=== PATIENT | female | born 1955 | race Caucasian/White ===

== ENCOUNTER 2020-06-14 08:56 | Outpatient (RCR) | payer BC, SELFPAY ==
[2020-06-14] MEDS: COVID-19 VACC, MRNA(PFIZER)/PF 30 MCG/0.3 ML SYRINGE IM (16:22)
[2020-07-04] MEDS: COVID-19 VACC, MRNA(PFIZER)/PF 30 MCG/0.3 ML SYRINGE IM (16:18)
== END 2020-08-20 23:59 ==
LOC: IMMUN 08:56
PROVIDERS: PCP Family Medicine; Visit Provider Family Medicine
DX: Z23 Encounter for immunization (principal)
CPT/HCPCS: 0001A; 0002A; 91300

== ENCOUNTER 2022-07-30 09:01 | Emergency (ER) | payer MEDICARE, SELFPAY ==
[2022-07-30 09:01] VITALS: BP 177/100; PULSE 87; RESP 16; TEMP 36.6; O2SAT 96; BMI 37.7
--- NOTE | 2022-07-30 09:11 | EKG12_ITS ---
Test Reason : CP Blood Pressure : / mmHG Vent. Rate : 090 BPM Atrial Rate : 090 BPM P-R Int : 156 ms QRS Dur : 078 ms QT Int : 372 ms P-R-T Axes : 039 010 025 degrees QTc Int : 455 ms Normal sinus rhythm Normal ECG Confirmed by FABIANA CHILEL, AROLDO ([id number]), script editor STEVEN NORRIS ([id number]) on 07/31/2022 8:58:00 AM Referred By: [facility]PHYS Confirmed By:AROLDO JUNG MD
[2022-07-30 09:24] LABS: Absolute Lymphocyte Count 1.97 X10^3/uL (0.83-4.51); Basophil# 0.11 X10^3/uL; Basophil% 0.9 % (0-1); Eosinophil# 0.12 X10^3/uL; Hematocrit 50.8 % (37-47); Lymphocyte # 1.97 X10^3/ul (0.83-4.51); Lymphocyte % 16.7 % (19-41); Mean Corp Hgb Conc 33.5 g/dL (32-36); Mean Corpuscular Volume 89.6 fL (81-99); Monocyte# 1.55 X10^3/uL; Monocyte% 13.1 % (0-10); NRBC Flagged by Analyzer 0 % (0-5); Neutrophil # 7.99 X10^3/uL (2.7-7.7); Neutrophil % 67.8 % (47-70); POSITIVE DIFFERENTIAL YES; Platelet Count 272 K/mm3 (150-450); RBC Distribution Width CV 14.1 % (11.6-14.6); RBC Distribution Width SD 46.5 fl (35.1-43.9); Red Blood Count 5.67 M/mm3 (4.2-5.4); White Blood Count 11.8 K/mm3 (4.4-11.0)
[2022-07-30 09:26] LABS: Differential Indicated SCAN CRITERIA MET
[2022-07-30 09:42] LABS: Anion Gap 4 (5-15); BUN 13 mg/dL (7-18); BUN/Creat Ratio 14.9 RATIO (10-20); Calcium,Total 9.2 mg/dL (8.5-10.1); Chloride 107 mmol/L (98-107); Creatinine, Serum 0.87 mg/dL (0.55-1.02); EST Glomerular Filtration Rate 69 mL/min (>60); Est Glom Filt Rate - Afr Amer 84 mL/min (>60); Estimated Creatinine Clearance 60.35 ml/min; Glucose 139 mg/dL (74-106); Sodium Level 139 mmol/L (136-145); Troponin-I HS (w/2H Reflex) 6 pg/mL (3.0-54.0)
--- NOTE | 2022-07-30 09:55 | ED.VIS.CHEST ---
HPI History of Present Illness Chief Complaint: Chest Pain Informant: patient Onset/Context/Timing Onset: Month(s) Narrative Narrative: Patient has been having chest pain off and on since February, she states it is bilateral axilla radiating all the way across her sternum/chest, more constant since May. She had some white blood count elevations that would not come down so she was sent to hematology after having work-ups for the chest discomfort, they ordered a CTA of the chest which was done as an outpatient this morning, it was interpreted as a type a Wayne aortic dissection, and she was shuttled straight here to the ER. She states she is having the discomfort right now but it is mild. She is on no antihypertensives, she follows with her doctor regularly. She has had no syncopal or near syncopal episodes in the last couple months. [facility] Medical History Constipation Diabetes mellitus GERD (gastroesophageal reflux disease) Hemorrhoids HLD (hyperlipidemia) Muscular pain Nicotine dependence Osteoarthritis Osteoarthritis of right knee Plantar fasciitis of right foot Home Medications atorvastatin 10 mg tablet 10 mg PO DAILY 06/24/22 [History Last Taken Unknown] omeprazole 40 mg capsule,delayed release 40 mg PO DAILY 06/24/22 [History Last Taken Unknown] metformin 500 mg tablet 500 mg PO BID 07/21/22 [History Last Taken Unknown] Allergy/AdvReac Type Severity Reaction Status Date / Time No Known Allergies Allergy Verified 07/21/22 15:26 Family History Brother Bladder cancer Father Colon cancer Mother Heart disease Diabetes Surgical History History of tubal ligation S/P total knee arthroplasty Social History Smoking Status: Heavy Smoker (>10/day) alcohol intake: never substance use type: does not use ROS ROS ED Constitutional Constitutional ED: Denies chills or fever(s) Eyes Eyes: Denies change in vision or diplopia ENT ENT ED: Denies rhinorrhea or sore throat Cardiovascular Cardiovascular: Reports chest pain; Denies palpitations Respiratory/Chest Respiratory/Chest: Denies cough or dyspnea Gastrointestinal Gastrointestinal: Denies abdominal pain, diarrhea, nausea or vomiting Genitourinary Genitourinary ED: Denies dysuria or hematuria Musculoskeletal Musculoskeletal: Denies back pain or neck pain Integumentary Denies abscess or rash Neurologic Neurologic: Denies headache(s), paresthesias or weakness Psychiatric Psychiatric: Denies anxiety or suicidal thoughts EXAM Physical Exam Const Vital Signs: 07/30/22 09:01 07/30/22 09:11 07/30/22 09:14 Temperature 97.8 F Temperature Source Oral Pulse Rate 87 Respiratory Rate 16 Respiratory Effort Normal Blood Pressure 177/100 H Blood Pressure Mean 125 Pulse Ox 96 Oxygen Delivery Method Room Air Room Air 07/30/22 10:18 Temperature Temperature Source Pulse Rate 77 Respiratory Rate 16 Respiratory Effort Blood Pressure 141/82 H Blood Pressure Mean 101 Pulse Ox 99 Oxygen Delivery Method Positive well nourished and well developed General Appearance ED: well developed and NAD HEENT Reports moist mucous membranes normocephalic and atraumatic Eyes PERRL and EOMs intact bilaterally Neck full ROM and supple Resp normal respiratory effort and clear to auscultation bilaterally Cardio regular rate, regular rhythm and no murmurs GI non-tender and non-distended Auscultation: normoactive bowel sounds Palpation: soft Back/Spine no CVA tenderness General Back: other FROM Extremity normal to inspection General Extremety ED: Negative for edema, pulses abnormal or tenderness General Extremity: Negative for edema or pulses abnormal Neuro oriented x3, CN's II-XII intact bilaterally and no sensory deficits noted Sensorium / Orientation: awake and alert Motor Exam: strength 5/5 throughout Skin no rashes or lesions noted and no wounds MDM MDM MDM Narrative Medical decision making narrative: I reviewed the images. If this is a real aortic dissection it is subtle. I question whether this could be beam hardening artifact from the nearby pulmonary vasculature filled with dye. Patient is very hypertensive 177/100, so I am treating this with labetalol, discussed with family at length, they agree with transfer for further evaluation and possible definitive treatment, which if this is real, is surgical. She is clinically stable and the rest of her vital signs are normal. They prefer to go to [facility]. Discussed with their center and with Dr. Almonte. Lab Data Attestation: I reviewed the patient's lab results. Labs: Laboratory Results - last 24 hr 07/30/22 07/30/22 09:10 09:10 WBC 11.8 H RBC 5.67 H Hgb 17.0 H Hct 50.8 H MCV 89.6 MCH 30.0 MCHC 33.5 RDW Std Deviation 46.5 H RDW Coeff of Gisella 14.1 Plt Count 272 MPV 13.0 H Immature Gran % (Auto) 0.500 Neut % (Auto) 67.8 Lymph % (Auto) 16.7 L [place] % (Auto) 13.1 H Eos % (Auto) 1.0 Baso % (Auto) 0.9 Absolute Neuts (auto) 8.0 H Absolute Lymphs (auto) 1.97 Nucleated RBC % 0 Sodium 139 Potassium 4.0 Chloride 107 Carbon Dioxide 28.0 Anion Gap 4 L BUN 13 Creatinine 0.87 Estim Creat Clear Calc 60.35 Est GFR (MDRD) Af Amer 84 Est GFR (MDRD) Non-Af 69 BUN/Creatinine Ratio 14.9 Glucose 139 H Calcium 9.2 Troponin I High Sens 6 Rhythm Strip Rhythm Strip: Sinus Rhythm Rate: 90 Ectopy: None EKG Initial EKG: Attestation: I personally reviewed and interpreted this EKG as follows: Interpretation: Sinus Rhythm and No Acute Injury Pattern Comments: normal EKG Critical Care Time Critical Care Time: Yes Critical care time (excluding procedures): 30-74 minutes (33 min), Including time spent:, Discussing 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
--- NOTE | 2022-07-30 10:10 | RAD_ITS ---
STUDY: X-RAY CHEST REASON FOR EXAM: Female, 66 years old. Chest pain TECHNIQUE: Single AP portable view of the chest. COMPARISON: None. FINDINGS: EKG electrodes are seen. The lungs are clear and expanded. There is no demonstrated pleural abnormality. Normal size heart. Normal mediastinum and nancy. Normal visualized pulmonary arteries. Normal visualized aortic arch and descending thoracic aorta. There are degenerative changes of the visualized thoracic spine. Normal visualized ribs, clavicles, and shoulders. There is no demonstrated abnormality of the visualized soft tissue structures of the upper abdomen. RAD/Chest 1 View (Portable) IMPRESSION: Normal x-ray examination of the chest. Electronically Signed: Dayton Maldonado MD at 10:44 EDT ,
[2022-07-30 10:18] VITALS: BP 141/82; PULSE 77; RESP 16; O2SAT 99
--- NOTE | 2022-07-30 10:20 | ED.RN ---
hold labetolol per bp perameters
[2022-07-30] MEDS: Labetalol (Prefilled) 20 MG/4 ML IV (10:46)
[2022-07-30 10:54] VITALS: BP 142/84; PULSE 77; RESP 16; O2SAT 99
== END 2022-07-30 10:56 | disposition short-term general hospital (02) ==
PROVIDERS: Emergency Provider Emergency Medicine; PCP Registered Nurse; Visit Provider Emergency Medicine
DX: I71.00 Dissection of unspecified site of aorta (principal); E11.9 Type 2 diabetes mellitus without complications; E78.5 Hyperlipidemia, unspecified; F17.200 Nicotine dependence, unspecified, uncomplicated; K21.9 Gastro-esophageal reflux disease without esophagitis; Z79.899 Other long term (current) drug therapy; Z79.84 Long term (current) use of oral hypoglycemic drugs; M54.10 Radiculopathy, site unspecified
CPT/HCPCS: 71045; 71260; 80048; 84484; 85025; 93005; 96374; 99285; Q9967

== ENCOUNTER → 2022-07-30 | Outpatient (CLI) | payer MEDICARE, SELFPAY ==
--- NOTE | 2022-07-30 07:47 | CT_ITS ---
STUDY: CT CHEST WITH CONTRAST REASON FOR EXAM: Female, 66 years old. LEUKOCYTOSIS, THORACIC SPINE PAIN RADIATION DOSAGE (If Supplied By Facility): CTDIvol = ( 14.07 ) mGy, DLP = ( 676.82 ) mGycm TECHNIQUE: Transaxial imaging was performed following intravenous administration of IV 100mL Isovue-300. Multiplanar coronal and sagittal images were reformatted. Individualized dose optimization techniques were used for this CT. COMPARISON: No relevant priors. FINDINGS: CHEST The lungs are normal. There is no demonstrated pleural abnormality. Normal heart and pericardium. Normal mediastinum. Normal hilar regions. Normal unenhanced pulmonary arteries. 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 This corresponds to a [place] type A dissection. Normal osseous structures. There is no demonstrated abnormality of the visualized upper abdomen. 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 Electronically Signed: Dayton Maldonado MD at 8:43 EDT ,
== END | disposition home or self-care (01) ==
LOC: CT 07:47
PROVIDERS: PCP Registered Nurse; Referring Provider Internal Medicine Medical Oncology; Visit Provider Internal Medicine Medical Oncology
DX: M54.10 Radiculopathy, site unspecified (principal)
CPT/HCPCS: 71260; Q9967

== ENCOUNTER → 2022-08-24 | Outpatient (CLI) | payer MEDICARE, SELFPAY ==
--- NOTE | 2022-08-24 13:26 | MRI_ITS ---
EXAM: MR THORACIC SPINE WITHOUT AND WITH INTRAVENOUS CONTRAST CLINICAL INDICATION: LEUKOCYTOSIS; THORACIC SPINE PAIN TECHNIQUE: Multiplanar and multisequence MR images of the thoracic spine without and with intravenous contrast. Magnetic field strength 1.5 T. CONTRAST: 20 cc of Clariscan IV. COMPARISON: No relevant prior studies available. FINDINGS: VERTEBRAE: Unremarkable. No fracture. Normal vertebral bodies and posterior elements. Normal alignment. There is preservation of the normal thoracic kyphosis. No scoliosis. DISCS/SPINAL CANAL/NEURAL FORAMINA: Unremarkable. Normal disc height and morphology. Normal spinal canal and neuroforamina. SPINAL CORD: Unremarkable. Normal in signal and morphology. Normal conus medullaris. SOFT TISSUES: Unremarkable. MRI/Spine Thoracic W/WO Contrast IMPRESSION: Unremarkable MRI of the thoracic spine. Electronically Signed: Jude Rosario MD at 4:35 EDT ,
== END | disposition home or self-care (01) ==
LOC: MRI 13:13
PROVIDERS: PCP Registered Nurse; Referring Provider Internal Medicine Medical Oncology; Visit Provider Internal Medicine Medical Oncology
DX: M54.10 Radiculopathy, site unspecified (principal)
CPT/HCPCS: 72157; A9575

== ENCOUNTER → 2022-10-06 | Outpatient (CLI) | payer MEDICARE, SELFPAY ==
[2022-10-06 09:11] LABS: Erythrocyte Sedimentation Rate 37 mm/hr (0-30)
[2022-10-06 09:13] LABS: ALB/GLOB Ratio 0.9 RATIO (0.9-2.4); AST(SGOT) 126 U/L (15-37); Alanine Aminotransfer ALT/SGPT 295 U/L (13-56); Albumin, Serum 3.4 g/dL (3.2-5.0); Alkaline Phosphatase 547 U/L (45-117); Amylase 56 U/L (25-115); Anion Gap 6 (5-15); BUN 13 mg/dL (7-18); BUN/Creat Ratio 13.4 RATIO (10-20); CRP 7.76 mg/L (0.0-3.0); Calcium,Total 9.2 mg/dL (8.5-10.1); Chloride 112 mmol/L (98-107); Creatinine, Serum 0.97 mg/dL (0.55-1.02); EST Glomerular Filtration Rate 61 mL/min (>60); Est Glom Filt Rate - Afr Amer 74 mL/min (>60); Globulin 3.9 g/dL (2.2-4.2); Glucose 136 mg/dL (74-106); LDH 232 U/L (84-246); Lipase 86 U/L (13-75); Potassium 3.4 mmol/L (3.5-5.1); Protein, Total 7.3 g/dL (6.4-8.2); Sodium Level 140 mmol/L (136-145)
[2022-10-06 09:15] LABS: Absolute Lymphocyte Count 1.66 X10^3/uL (0.83-4.51); Absolute Neutrophil Count 7.5 X10^3/uL (2.0-7.7); Basophil% 0.9 % (0-1); Eosinophil# 0.21 X10^3/uL; Eosinophils% 1.9 % (0-5); Hematocrit 50.8 % (37-47); Hemoglobin 16.7 g/dL (12.0-15.0); Lymphocyte # 1.66 X10^3/ul (0.83-4.51); Lymphocyte % 14.8 % (19-41); Mean Corp Hgb Conc 32.9 g/dL (32-36); Mean Corpuscular Hgb 29.5 pg (27.0-32.0); Mean Corpuscular Volume 89.6 fL (81-99); Mean Platelet Vol. 14.2 fl (6.2-12.0); Monocyte# 1.73 X10^3/uL; Monocyte% 15.4 % (0-10); NRBC Flagged by Analyzer 0 % (0-5); Neutrophil # 7.45 X10^3/uL (2.7-7.7); Neutrophil % 66.4 % (47-70); POSITIVE DIFFERENTIAL YES; Platelet Count 207 K/mm3 (150-450); RBC Distribution Width CV 15.6 % (11.6-14.6); RBC Distribution Width SD 50.9 fl (35.1-43.9); Red Blood Count 5.67 M/mm3 (4.2-5.4); White Blood Count 11.2 K/mm3 (4.4-11.0)
[2022-10-06 09:17] LABS: Differential Indicated SCAN CRITERIA MET
[2022-10-06 09:38] LABS: Prothrombin Time (Protime)PT. 13.2 SECONDS (11.7-14.9)
[2022-10-07 13:13] LABS: Anti-Centromere B Ab <0.2 AI (0.0-0.9); Anti-Chromatin <0.2 AI (0.0-0.9); Anti-Jo <0.2 AI (0.0-0.9); Anti-Scleroderma-70 AB <0.2 AI (0.0-0.9); Anti-dsDNA Ab 3 IU/mL (0-9); RNP Ab 0.7 AI (0.0-0.9); SJOGREN'S Anti-SS-A test < 0.2 AI (0.0-0.9); SJOGREN'S Anti-SS-B test < 0.2 AI (0.0-0.9); Smith Ab <0.2 AI (0.0-0.9)
[2022-10-08 09:52] LABS: Pathologist Review Reviewed
[2022-10-09 13:08] LABS: Albumin 3.3 g/dL (2.9-4.4); Alpha-1-Globulins 0.4 g/dL (0.0-0.4); Alpha-2-Globulins 0.9 g/dL (0.4-1.0); Ceruloplasmin 33.5 mg/dL (19.0-39.0); Copper, Serum or Plasma 141 ug/dL (80-158); Cytoplasmic Ab (C-ANCA) <1:20 titer (Neg:<1:20); Endomysial Antibody IgA Negative (Negative); Gamma Globulin 0.9 g/dL (0.4-1.8); Immunoglobulin A 278 mg/dL (87-352); Immunoglobulin E 16 IU/mL (6-495); Immunoglobulin G 855 mg/dL (586-1602); Immunoglobulin M 42 mg/dL (26-217); PROEL- TOTAL PROTEIN 6.7 g/dL (6.0-8.5); Perinuclear Ab (P-ANCA) <1:20 titer (Neg:<1:20); t-Transglutaminase IgA <2 U/mL (0-3)
== END | disposition home or self-care (01) ==
PROVIDERS: PCP Registered Nurse; Referring Provider Internal Medicine Gastroenterology; Visit Provider Internal Medicine Gastroenterology
DX: D72.829 Elevated white blood cell count, unspecified (principal); R07.9 Chest pain, unspecified
CPT/HCPCS: 36415; 80053; 82150; 82390; 82525; 82784; 82785; 83516; 83615; 83690; 84165; 85025; 85610; 85652; 86140; 86225; 86235; 86255; 86256; 86334

== ENCOUNTER 2022-10-08 10:26 | Inpatient (IN) | payer MEDICARE, SELFPAY ==
[2022-10-08 10:27] VITALS: BP 129/77; PULSE 95; RESP 14; TEMP 36.7; O2SAT 100; BMI 35.3
[2022-10-08 11:22] LABS: Bacteria 0 SEEN /hpf (None Seen); Mucous, Urine 0 SEEN /hpf (<or=2+); Red Blood Cells-Urine 0 SEEN /hpf (0-5); White Blood Cells 0 SEEN /hpf (0-5)
[2022-10-08 11:25] LABS: Color, Urine Yellow (Yellow); Glucose, Dipstick Normal (Normal); Ketone-Dipstick Negative (Negative); Leukocyte Esterase-Dipstick Negative /ul (Negative); Nitrite-Dipstick Negative (Negative); Occult Blood-Urine 10 /ul (Negative); Protein-Dipstick 30 mg/dl (Negative); Specific Gravity, Urine 1.005 (1.002-1.030); Urine Bilirubin Dipstick 1 mg/dL (Negative); Urine Clarity Clear (Clear); Urine Urobilinogen Normal (Normal)
[2022-10-08 11:28] LABS: Absolute Lymphocyte Count 1.64 X10^3/uL (0.83-4.51); Basophil# 0.13 X10^3/uL; Basophil% 1.2 % (0-1); Eosinophil# 0.21 X10^3/uL; Eosinophils% 1.9 % (0-5); Hematocrit 48.5 % (37-47); Hemoglobin 16.2 g/dL (12.0-15.0); Lymphocyte # 1.64 X10^3/ul (0.83-4.51); Lymphocyte % 15.2 % (19-41); Mean Corp Hgb Conc 33.4 g/dL (32-36); Mean Corpuscular Hgb 29.7 pg (27.0-32.0); Mean Corpuscular Volume 88.8 fL (81-99); Mean Platelet Vol. 13.5 fl (6.2-12.0); Monocyte# 1.79 X10^3/uL; Monocyte% 16.5 % (0-10); NRBC Flagged by Analyzer 0 % (0-5); Neutrophil # 7.02 X10^3/uL (2.7-7.7); Neutrophil % 64.9 % (47-70); POSITIVE DIFFERENTIAL YES; Platelet Count 195 K/mm3 (150-450); RBC Distribution Width CV 16.2 % (11.6-14.6); RBC Distribution Width SD 52.8 fl (35.1-43.9); Red Blood Count 5.46 M/mm3 (4.2-5.4); White Blood Count 10.8 K/mm3 (4.4-11.0)
[2022-10-08 11:31] LABS: Differential Indicated SCAN CRITERIA MET
[2022-10-08 11:34] LABS: Prothrombin Time (Protime)PT. 12.9 SECONDS (11.7-14.9)
[2022-10-08 11:35] LABS: Squamous Epithelial Cells - UA 0-5 SEEN /hpf (5-10)
[2022-10-08 11:35] LABS: Partial Thromboplast Time 36.1 Seconds (24.1-36.2)
[2022-10-08 11:53] LABS: ALB/GLOB Ratio 0.8 RATIO (0.9-2.4); AST(SGOT) 116 U/L (15-37); Alanine Aminotransfer ALT/SGPT 231 U/L (13-56); Albumin, Serum 3.3 g/dL (3.2-5.0); Alkaline Phosphatase 582 U/L (45-117); Anion Gap 10 (5-15); BUN 10 mg/dL (7-18); BUN/Creat Ratio 9.2 RATIO (10-20); Calcium,Total 9.4 mg/dL (8.5-10.1); Chloride 104 mmol/L (98-107); Creatinine, Serum 1.09 mg/dL (0.55-1.02); EST Glomerular Filtration Rate 53 mL/min (>60); Est Glom Filt Rate - Afr Amer 65 mL/min (>60); Estimated Creatinine Clearance 47.53 ml/min; Globulin 3.9 g/dL (2.2-4.2); Glucose 116 mg/dL (74-106); Lipase 63 U/L (13-75); Potassium 3.6 mmol/L (3.5-5.1); Protein, Total 7.2 g/dL (6.4-8.2); Sodium Level 137 mmol/L (136-145)
--- NOTE | 2022-10-08 12:03 | EX.ED.DYSGE1 ---
HPI <FELICITAS Berry - Last Filed: 10/08/22 16:14> History of Present Illness Chief Complaint: Abd Pain Narrative Narrative: Patient presenting today after she was referred in by Dr. Silvestre for abnormal lab results. She reports that she has been having intermittent generalized abdominal pain that is worse on the right side and worse after eating for the past week. She also reports having bright yellow urine and reports that her PCP noticed that her eyes appeared jaundiced a few days ago. She has been having itching skin and several bouts of loose stool daily. She saw Dr. Silvestre to set up a colonoscopy and endoscopy due to chest pain that she has been having across her chest after having a negative cardiac work-up through the [place] recently. She has had nausea but denies any vomiting, fever, chills, urinary symptoms, and previous abdominal surgery. PMH includes diabetes mellitus, GERD, and hypertension. She denies any history of liver disease as well as a history of alcohol use. PFSH <FELICITAS Berry - Last Filed: 10/08/22 16:14> PFSH Medical History Constipation Diabetes mellitus GERD (gastroesophageal reflux disease) Hemorrhoids HLD (hyperlipidemia) Muscular pain Nicotine dependence Osteoarthritis Osteoarthritis of right knee Plantar fasciitis of right foot Home Medications omeprazole 40 mg capsule,delayed release 40 mg PO DAILY gerd 06/24/22 [History Last Taken Unknown] atorvastatin 40 mg tablet 40 mg PO DAILY cholesterol 09/01/22 [History Last Taken Unknown] glipizide 2.5 mg tablet, extended release 24 hr 2.5 mg PO DAILY lower blood sugars 09/01/22 [History Last Taken Unknown] metoprolol succinate 50 mg tablet,extended release 24 hr 25 mg PO DAILY htn 09/01/22 [History Last Taken Unknown] aspirin 81 mg tablet,delayed release (Adult Low Dose Aspirin) 81 mg PO DAILY blood thinner 10/08/22 [History Last Taken Unknown] Allergy/AdvReac Type Severity Reaction Status Date / Time No Known Allergies Allergy Verified 10/08/22 10:27 Family History Brother Bladder cancer Father Colon cancer Mother Heart disease Diabetes Surgical History History of tubal ligation S/P total knee arthroplasty Social History Smoking Status: Heavy Smoker (>10/day) alcohol intake: never substance use type: does not use ROS <FELICITAS Berry - Last Filed: 10/08/22 16:14> ROS ED Constitutional Constitutional ED: Denies chills or fever(s) Cardiovascular Cardiovascular: Denies chest pain Respiratory/Chest Respiratory/Chest: Denies cough or dyspnea Gastrointestinal Gastrointestinal: Reports abdominal pain, diarrhea and nausea; Denies constipation or vomiting Genitourinary Genitourinary ED: Denies dysuria, hematuria or urinary urgency Musculoskeletal Musculoskeletal: Denies arthralgias or myalgias Integumentary Denies Abrasions or rash Neurologic Neurologic: Denies weakness EXAM <FELICITAS Berry - Last Filed: 10/08/22 16:14> Physical Exam Const Vital Signs: 10/08/22 10:27 Temperature 98.1 F Temperature Source Temporal Pulse Rate 95 Respiratory Rate 14 Blood Pressure 129/77 H Blood Pressure Mean 94 Pulse Ox 100 Oxygen Delivery Method Room Air Positive well nourished, well developed and no apparent distress General Appearance ED: well developed HEENT Reports normocephalic and head/scalp atraumatic Mouth ED: Yes moist mucous membranes normal Eyes PERRL and EOMs intact bilaterally General Eye ED: Yes scleral icterus Neck full ROM and supple Chest Wall inspection of chest normal Resp normal respiratory effort and clear to auscultation bilaterally Cardio regular rate and regular rhythm GI soft to palpation, non-distended and no masses GI Narrative: Generalized abdominal pain to palpation, more pronounced on the right side, no rigidity or guarding Back/Spine normal ROM and normal to inspection Extremity normal to inspection and full ROM Neuro oriented x3, CN's II-XII intact bilaterally, moves all extremities, no focal motor deficits and no sensory deficits noted Sensorium / Orientation: awake and alert Psych mental status grossly normal and thought process normal Skin no rashes or lesions noted and no wounds <Dr. Valencia Beaver DO - Last Filed: 10/08/22 16:51> Physical Exam Const Vital Signs: 10/08/22 10:27 Temperature 98.1 F Temperature Source Temporal Pulse Rate 95 Respiratory Rate 14 Blood Pressure 129/77 H Blood Pressure Mean 94 Pulse Ox 100 Oxygen Delivery Method Room Air [facility] <FELICITAS Berry - Last Filed: 10/08/22 16:14> [facility] Narrative Medical decision making narrative: Patient presenting today due to abnormal laboratory work that was obtained by Dr. Silvestre on Wednesday. Labs show an elevated alkaline phosphatase, transaminitis, bilirubinemia, with jaundice. Repeat labs are consistent with this today with worsening of her bilirubinemia. She denies any history of liver disease or alcohol use. Her PCP sent her to get a CT scan of her abdomen pelvis done as an outpatient with Kamille this morning which is suspicious for cholangiocarcinoma. Attending did have a long discussion with the patient regarding this finding. Dr. Silvestre was notified and requested that we add on an MRCP. We did speak with hospitalist who agrees that patient needs admitted and patient will be admitted in stable condition, hospitalist did request that we start patient on Lovenox and Zosyn here with IV fluids. Lab Data Attestation: I reviewed the patient's lab results. Labs: Laboratory Results - last 24 hr 10/08/22 10/08/22 10/08/22 10:50 11:15 11:18 WBC 10.8 RBC 5.46 H Hgb 16.2 H Hct 48.5 H MCV 88.8 MCH 29.7 MCHC 33.4 RDW Std Deviation 52.8 H RDW Coeff of Gisella 16.2 H Plt Count 195 MPV 13.5 H Immature Gran % (Auto) 0.300 Neut % (Auto) 64.9 Lymph % (Auto) 15.2 L [place] % (Auto) 16.5 H Eos % (Auto) 1.9 Baso % (Auto) 1.2 H Absolute Neuts (auto) 7.0 Absolute Lymphs (auto) 1.64 Nucleated RBC % 0 PT 12.9 INR 1.0 APTT 36.1 Sodium 137 Potassium 3.6 Chloride 104 Carbon Dioxide 23.0 Anion Gap 10 BUN 10 Creatinine 1.09 H Estim Creat Clear Calc 47.53 Est GFR (MDRD) Af Amer 65 Est GFR (MDRD) Non-Af 53 L BUN/Creatinine Ratio 9.2 L Glucose 116 H Calcium 9.4 Phosphorus 3.1 Magnesium 1.8 Total Bilirubin 7.30 H AST 116 H ALT 231 H Alkaline Phosphatase 582 H Total Protein 7.2 Albumin 3.3 Globulin 3.9 Albumin/Globulin Ratio 0.8 L Lipase 63 Urine Color Yellow Urine Clarity Clear Urine pH 7.0 Ur Specific [place] 1.005 Urine Protein 30 H Urine Glucose (UA) Normal Urine Ketones Negative Urine Occult Blood 10 H Urine Nitrite Negative Urine Bilirubin 1 H Urine Urobilinogen Normal Ur Leukocyte Esterase Negative Urine RBC 0 SEEN Urine WBC 0 SEEN Ur Squamous Epith Cells 0-5 SEEN Urine Bacteria 0 SEEN Urine Mucus 0 SEEN <Dr. Valencia Beaver, DO - Last Filed: 10/08/22 16:51> [facility] Narrative Medical decision making narrative: Patient presenting today due to abnormal laboratory work that was obtained by Dr. Silvestre on Wednesday. Labs show an elevated alkaline phosphatase, transaminitis, bilirubinemia, with jaundice. Repeat labs are consistent with this today with worsening of her bilirubinemia. She denies any history of liver disease or alcohol use. Her PCP sent her to get a CT scan of her abdomen pelvis done as an outpatient with Kamille this morning which is suspicious for cholangiocarcinoma. Attending did have a long discussion with the patient regarding this finding. Dr. Silvestre was notified and requested that we add on an MRCP. We did speak with hospitalist who agrees that patient needs admitted and patient will be admitted in stable condition, hospitalist did request that we start patient on Lovenox and Zosyn here with IV fluids. I have personally performed a face to face assessment of the patient and have reviewed the VANI Note. I performed a substantive portion of the visit including all aspects of the following. My mendoza findings include: History is patient is a pleasant 67-year-old female presenting with a couple months of unintentional weight loss, back pain with a finding of a pulmonary nodule and now couple weeks of vague upper abdominal pain with new jaundice. She had outpatient labs concerning for obstructive jaundice was sent to the emergency room. In addition patient had an outpatient CT of her abdomen pelvis earlier today at [facility]. Films were pushed through to our system and the read was obtained which was concerning for acute cholangiocarcinoma as well as marked compression of the main portal vein at the portal hepatitis by the appears patent. Suspect occlusion of the left portal vein with small collateral vessels. Patient is only complaint of mild discomfort and does not want a thing for pain in the ER. Is given gentle IV fluid that she is currently kept n.p.o. Case discussed at length with Dr. Silvestre, who reviews the images as well. Recommends admission for MRCP and further staging/evaluation. Recommends weight-based Lovenox for possible portal vein thrombosis and IV Zosyn. This is discussed with admitting physician, Dr. Hammond. Other additions or changes: [None] Lab Data Labs: Laboratory Results - last 24 hr 10/08/22 10/08/22 10/08/22 10:50 11:15 11:18 WBC 10.8 RBC 5.46 H Hgb 16.2 H Hct 48.5 H MCV 88.8 MCH 29.7 MCHC 33.4 RDW Std Deviation 52.8 H RDW Coeff of Gisella 16.2 H Plt Count 195 MPV 13.5 H Immature Gran % (Auto) 0.300 Neut % (Auto) 64.9 Lymph % (Auto) 15.2 L [place] % (Auto) 16.5 H Eos % (Auto) 1.9 Baso % (Auto) 1.2 H Absolute Neuts (auto) 7.0 Absolute Lymphs (auto) 1.64 Nucleated RBC % 0 PT 12.9 INR 1.0 APTT 36.1 Sodium 137 Potassium 3.6 Chloride 104 Carbon Dioxide 23.0 Anion Gap 10 BUN 10 Creatinine 1.09 H Estim Creat Clear Calc 47.53 Est GFR (MDRD) Af Amer 65 Est GFR (MDRD) Non-Af 53 L BUN/Creatinine Ratio 9.2 L Glucose 116 H Calcium 9.4 Phosphorus 3.1 Magnesium 1.8 Total Bilirubin 7.30 H AST 116 H ALT 231 H Alkaline Phosphatase 582 H Total Protein 7.2 Albumin 3.3 Globulin 3.9 Albumin/Globulin Ratio 0.8 L Lipase 63 Urine Color Yellow Urine Clarity Clear Urine pH 7.0 Ur Specific [place] 1.005 Urine Protein 30 H Urine Glucose (UA) Normal Urine Ketones Negative Urine Occult Blood 10 H Urine Nitrite Negative Urine Bilirubin 1 H Urine Urobilinogen Normal Ur Leukocyte Esterase Negative Urine RBC 0 SEEN Urine WBC 0 SEEN Ur Squamous Epith Cells 0-5 SEEN Urine Bacteria 0 SEEN Urine Mucus 0 SEEN Discharge Plan Dx/Rx/DC Orders Clinical Impression: Transaminitis, Bilirubinemia, Jaundice, Liver mass Disposition Disposition: Acute Care Hospital [facility] Discharge Date/Time: 10/08/22 15:25
[2022-10-08] MEDS: 0.9% Normal Saline 1,000 ML 999 ML IV (13:28)
--- NOTE | 2022-10-08 14:19 | MRI_ITS ---
MRCP without contrast 10/08/2022 3:10 PM COMPARISON: None available CLINICAL HISTORY: cholangiocarcinoma, ruq pain, jaundice TECHNIQUE: Multiplanar and multisequence MR images of the abdomen were obtained with MRCP sequence. Three-dimensional post-processing reconstructions were performed. FINDINGS: Liver: There is an ill-defined T1 hypointense/mildly T2 hyperintense mass in segment 2/4B which is difficult to measure but is at least 3 x 3.3 cm. Gallbladder: Not visualized, possibly surgically absent. Bile Ducts: The common bile duct is normal in caliber. The common hepatic duct is not seen. There is moderate dilatation of the intrahepatic biliary ducts. Pancreas: Unremarkable Spleen: Unremarkable Adrenal Glands: Unremarkable Kidneys: Scattered small simple T2 hyperintense cysts. GI Tract: Unremarkable Lymphadenopathy: Absent Ascites: Absent Bones: No suspicious lesions MRI/MRCP Abdomen without Contrast IMPRESSION: Limited evaluation without IV contrast. Despite limitations: 3.3 cm ill-defined mass in segment 2/4 B of the liver consistent with known cholangiocarcinoma. There is associated moderate obstruction of the intrahepatic biliary ducts. No evidence of metastatic disease in the abdomen. Electronically Signed: Terrence Stover MD at 17:57 EDT ,
[2022-10-08 14:44] VITALS: BP 135/77; PULSE 78; RESP 16; TEMP 36.8; O2SAT 93
[2022-10-08] MEDS: Enoxaparin 100 MG/ML Syringe SC (14:55)
[2022-10-08 14:58] VITALS: BP 135/77; PULSE 78; RESP 16; TEMP 36.8; O2SAT 93
--- NOTE | 2022-10-08 15:03 | NURSING ---
302 DA OBSTRUCTIVE JAUNDICE, CHOLANGIOCARCINOMA
--- NOTE | 2022-10-08 15:06 | HP.PCM.HOS_ITS ---
HPI - General General Date of Admission: 10/08/22 Date of Service: 10/08/22 Chief Complaint: Obstructive jaundice gradual development in 1 week with right upper quadrant abdominal pain HPI Narrative ASIYA SCOTT, is a 67 F who was sent to ED by Dr. Silvestre from the [facility] today. Patient is stated she is having right upper quadrant abdominal and epigastrium pain for about 1 week, 2-5/10 intensity constant but gradual worsening last 1 week. No apparent exacerbating or relieving factor. Patient was also noticed jaundice and turning yellow for 1 week. She is on PPI as an outpatient. She saw her PCP today and she had CT abdomen pelvis with contrast done by PCP. Images uploaded in PACS and individually reviewed and discussed with Dr. Silvestre. It shows infiltrative, irregular mass about 4.3 cm around the hilum of liver with peripheral biliary dilatation. As reported right portal vein patent left portal vein not seen but with collateral vessels. Mild compression of main portal vein. Prior to that she had lab on 10/06 which shows elevated transaminases, alkaline phosphatase, T. bili 5.1. Today her labs shows total bili increased to 7.3, but no significant change in transaminases and alkaline phosphatase. In ED, patient had IV Zosyn. MRCP ordered and patient admitted for further work-up and management. Patient denies fever chills, vomiting, GI bleed. Patient has regular constipation. Mild nausea. Patient had last colonoscopy about 15 years ago states that was normal but never had EGD. Has hemorrhoid for more than 40 years. She complains of itching and has a scratch mac on lower legs with orange urine. Patient also has two-vessel CAD, found after cardiac cath and echo in July 2022 including clinic. 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 Family history: Significant history of cancer in first-degree family relative. Patient's father had a stomach cancer probably metastasized to liver. Her niece also has stomach cancer. Her mother had heart disease. FOR[facility]LY [facility] Medical History Constipation Diabetes mellitus GERD (gastroesophageal reflux disease) Hemorrhoids HLD (hyperlipidemia) Muscular pain Nicotine dependence Osteoarthritis Osteoarthritis of right knee Plantar fasciitis of right foot Home Medications omeprazole 40 mg capsule,delayed release 40 mg PO DAILY 06/24/22 [History Last Taken Unknown] atorvastatin 40 mg tablet 40 mg PO DAILY 09/01/22 [History Last Taken Unknown] glipizide 2.5 mg tablet, extended release 24 hr tablet PO 09/01/22 [History Last Taken Unknown] metoprolol succinate 50 mg tablet,extended release 24 hr 25 mg PO DAILY 09/01/22 [History Last Taken Unknown] Allergy/AdvReac Type Severity Reaction Status Date / Time No Known Allergies Allergy Verified 10/08/22 10:27 Family History Brother Bladder cancer Father Colon cancer Mother Heart disease Diabetes Surgical History History of tubal ligation S/P total knee arthroplasty Social History Smoking Status: Heavy Smoker (>10/day) alcohol intake: never substance use type: does not use ROS ROS Narrative Constitutional: Reports fatigue and weakness. No fever. HEENT: Reports systems reviewed and no addt'l complaints, except as documented Respiratory/Chest: No acute shortness of breath or respiratory distress or wheezing. CVS: CAD. No acute chest pain or shortness of breath. Gastrointestinal: As described in HPI. Denies coffee ground emesis, hematemesis or vomiting Genitourinary: Voiding/yellow urine. Denies burning urination or new urinary tract symptoms Musculoskeletal: Denies acute joint pain or limited range of motion. No acute injury Neurologic: Denies seizure-like symptoms. No acute strokelike symptoms. skin: Generalized itching, pruritus and scratch mac Endocrinology: Reports systems reviewed and no addt'l complaints, except as documented Hematologic/Lymphatic: Reports systems reviewed and no addt'l complaints, except as documented Rest 14 ROS are negative except as mentioned in HPI Vital Signs Vital Signs Vital Signs: 10/08/22 10:27 10/08/22 14:44 10/08/22 14:58 Temperature 98.1 F 98.3 F 98.3 F Temperature Source Temporal Oral Oral Pulse Rate 95 78 78 Respiratory Rate 14 16 16 Blood Pressure 129/77 H 135/77 H 135/77 H Blood Pressure Mean 94 96 96 Pulse Ox 100 93 93 Oxygen Delivery Method Room Air Room Air Room Air Weight Weight: 218 lb 11.177 oz Body Mass Index (BMI) 35.3 Physical Exam Narrative General: Alert, Oriented x3, Cooperative HEENT: Deep yellow icterus. Atraumatic, PERRLA, EOMI, Normocephalic Oral: Oral mucosa dry. No Gingival or Mucosal Lesions/ Ulcerations Neck: Supple, No JVD, Negative Carotid Bruits Lungs: Air entry diminished in bilateral lung bases. No crepitation/rhonchi Cardiovascular: Regular rate, Regular Rhythm, Normal S1, Normal S2, No murmurs Abdomen: Bowel Sounds Present, Soft, Non Tender, Non-Distended : No renal angle tenderness. No suprapubic tenderness. Extremities: No edema, Capillary Refill Less than 3 Seconds Skin: Scratch mac over lower legs. Skin yellowish color Musculoskeletal: No Tenderness to Palpation of Joints or Extremities. Right TKR. ROM full. Neurological: Cranial nerves II-XII grossly intact, DTR 2+/4 and Symmetrical, Neuro grossly intact Psych/Mental Status: Normal Affect, Appropriate. Results Lab / Micro Data 10/08/22 10:50 10/08/22 10:50 Labs: Laboratory Results - last 24 hr 10/08/22 10:50: WBC 10.8, RBC 5.46 H, Hgb 16.2 H, Hct 48.5 H, MCV 88.8, MCH 29.7, MCHC 33.4, RDW Std Deviation 52.8 H, RDW Coeff of Gisella 16.2 H, Plt Count 195, MPV 13.5 H, Immature Gran % (Auto) 0.300, Neut % (Auto) 64.9, Lymph % (Auto) 15.2 L, [place] % (Auto) 16.5 H, Eos % (Auto) 1.9, Baso % (Auto) 1.2 H, Absolute Neuts (auto) 7.0, Absolute Lymphs (auto) 1.64, Nucleated RBC % 0, Sodium 137, Potassium 3.6, Chloride 104, Carbon Dioxide 23.0, Anion Gap 10, BUN 10, Creatinine 1.09 H, Estim Creat Clear Calc 47.53, Est GFR (MDRD) Af Amer 65, Est GFR (MDRD) Non-Af 53 L, BUN/Creatinine Ratio 9.2 L, Glucose 116 H, Calcium 9.4, Total Bilirubin 7.30 H, AST 116 H, ALT 231 H, Alkaline Phosphatase 582 H, Total Protein 7.2, Albumin 3.3, Globulin 3.9, Albumin/Globulin Ratio 0.8 L, Lipase 63 10/08/22 11:15: PT 12.9, INR 1.0, APTT 36.1 10/08/22 11:18: Urine Color Yellow, Urine Clarity Clear, Urine pH 7.0, Ur Spec ific [place] 1.005, Urine Protein 30 H, Urine Glucose (UA) Normal, Urine Ketones Negative, Urine Occult Blood 10 H, Urine Nitrite Negative, Urine Bilirubin 1 H, Urine Urobilinogen Normal, Ur Leukocyte Esterase Negative, Urine RBC 0 SEEN, Urine WBC 0 SEEN, Ur Squamous Epith Cells 0-5 SEEN, Urine Bacteria 0 SEEN, Urine Mucus 0 SEEN Assessment & Plan Assessment/Plan (1) Liver mass: PLAN: Plan This 67-year-old female is being admitted for new onset jaundice and right upper quadrant abdominal pain found to have liver mass on CT abdomen. 1. Liver irregular 4.3 cm mass central hilar and location, cause for obstructive jaundice, suspicion for cholangiocarcinoma: It shows infiltrative, irregular mass about 4.3 cm around the hilum of liver with peripheral biliary dilatation. As reported right portal vein patent left portal vein not seen but with collateral vessels. Mild compression of main portal vein. Patient is being admitted in Medr floor. MRCP ordered. There is compression of the main portal vein with elevation in total bilirubin, alkaline phosphatase and transaminases. IV Zosyn ordered. MRCP ordered. Lovenox 1 mg/kg body weight every 12 hourly. Further plan for EGD and MRCP. Monitor liver chemistry daily. 2. CAD, two-vessel disease: She had work-up in [facility] in July 2022. Patient currently on baby aspirin and beta-justo. Medications continued. Try to obtain medical record from [facility]. 3. GERD on PPI: Continue PPI. Will need EGD 4. Left upper lobe pulmonary nodule: CT abdomen and pelvis showed multiple bilateral lung base pulmonary nodules, largest right anteriorly 1.[address] Guerrero and he mentioned left upper lobe nodule and advised to repeat C T chest in 3 months in clinic visit on August 2022 5. Dyslipidemia degenerative osteoarthritis, History of right TKR and morbid obesity: Her BMI is 35.3 kg/m?: Hold atorvastatin in view of increased total bilirubin and liver chemistry. DVT prophylaxis, high risk with compression of main portal vein: On therapeutic dose of Lovenox as mentioned above. Living will/advanced directive/end of life care: Patient does have living will or advanced directive. Her is power of defense attorney for health. Her daughter is charge nurse on [facility] 3. After discussion of benefits/risks procedures involved with full code, DNR CC arrest and DNR CC, the patient opted for full code. Patient does want artificial life support including intubation, tube feed, ventilator and/chest compression, central venous catheter, vasopressor and DC shock if needed Total time spent in [id number] encounter in discussion of advanced directive 17 minutes. Charges/Coding Visit Charges Inpatient E&M: 65843 Init Hosp L3 Procedures Hospitalists Procedures: 65470 Advncd Care Plan 30 Min
[2022-10-08 15:50] VITALS: BMI 35.3
[2022-10-08 15:51] VITALS: BP 106/69; PULSE 86; RESP 18; TEMP 36.9; O2SAT 100
[2022-10-08 16:07] LABS: Magnesium 1.8 mg/dL (1.6-2.6); Phosphorus 3.1 mg/dL (2.5-4.9)
[2022-10-08] MEDS: Morphine 2 MG/ML Syringe IV (16:31)
[2022-10-08] MEDS: 0.9% Saline Lock 10 ML Syringe IV ×2 (16:33→18:53)
[2022-10-08 17:04] LABS: Bilirubin, Direct 5.17 mg/dL (0.00-0.30)
--- NOTE | 2022-10-08 17:06 | CON.PCM.GI_ITS ---
HPI Consult Data Date of Consult: 10/08/22 HPI Narrative Reason for Consultation: Jaundice HPI Narrative: ASIYA SCOTT, is a 67 F who presented to the ED with worsening abdominal pain. She has a past history GERD well controlled with use of omeprazole 40mg QD, TUMs PRN and lifestyle changes; Constipation stable with use of training schedule; bleeding hemorrhoids present since of children.? She reports that her GERD is mostly stable with the omeprazole but still has to take Tums fairly often. She has never had an EGD. States that she varies between constipation and diarrhea but has more constipation. Last colonoscopy was over 15 years ago which she states was normal. States that she has had hemorrhoids for over 40 years. States that she has bleeding from the hemorrhoids depending on her bowel movements. States that she has no other complaints accept this week she has had green diarrhea, orange urine, and skin itching. She reports that she has been having intermittent generalized abdominal pain that is worse on the right side and worse after eating for the past week. She also reports having bright yellow urine and reports that her PCP noticed that her eyes appeared jaundiced a few days ago. She has been having itching skin and several bouts of loose stool daily. She reports having pain across her chest after having a negative cardiac work-up through the [facility] recently. She has had nausea but denies any vomiting, fever, chills, urinary symptoms, and previous abdominal surgery. PMH includes diabetes mellitus, GERD, and hypertension. She denies any history of liver disease as well as a history of alcohol use. She Has pain in the upper back, going around to the armpits for about [address] chest on 07/30/2022 showed dissection of ascending aorta so was transferred to [facility], work up there was negative. Had MRI thoracic spine and comes for follow up. Still had pain in the upper back. She had a CT scan that showed the centralhepatic mass compatible with cholangiocarcinoma. There was also intrahepatic biliary dilation is a family infiltration of the liver. There is a very compressed remy hepatis which appears to remain patent. However there is occlusion of the left portal vein with small collateral vessels. In addition there are multiple pulmonary nodules compatible with metastatic disease PFSH Medical History Constipation Diabetes mellitus GERD (gastroesophageal reflux disease) Hemorrhoids HLD (hyperlipidemia) Muscular pain Nicotine dependence Osteoarthritis Osteoarthritis of right knee Plantar fasciitis of right foot Home Medications omeprazole 40 mg capsule,delayed release 40 mg PO DAILY gerd 06/24/22 [History Last Taken Unknown] atorvastatin 40 mg tablet 40 mg PO DAILY cholesterol 09/01/22 [History Last Taken Unknown] glipizide 2.5 mg tablet, extended release 24 hr 2.5 mg PO DAILY lower blood sugars 09/01/22 [History Last Taken Unknown] metoprolol succinate 50 mg tablet,extended release 24 hr 25 mg PO DAILY htn 09/01/22 [History Last Taken Unknown] aspirin 81 mg tablet,delayed release (Adult Low Dose Aspirin) 81 mg PO DAILY blood thinner 10/08/22 [History Last Taken Unknown] Allergy/AdvReac Type Severity Reaction Status Date / Time No Known Allergies Allergy Verified 10/08/22 10:27 Family History Brother Bladder cancer Father Colon cancer Mother Heart disease Diabetes Surgical History History of tubal ligation S/P total knee arthroplasty Social History Smoking Status: Heavy Smoker (>10/day) alcohol intake: never substance use type: does not use ROS ROS Narrative Constitutional: Reports fatigue and weakness. No fever. HEENT: Reports systems reviewed and no addt'l complaints, except as documented Respiratory/Chest: No acute shortness of breath or respiratory distress or wheezing. CVS: CAD. No acute chest pain or shortness of breath. Gastrointestinal: As described in HPI. Denies coffee ground emesis, hematemesis or vomiting Genitourinary: Voiding/yellow urine. Denies burning urination or new urinary t ract symptoms Musculoskeletal: Denies acute joint pain or limited range of motion. No acute injury Neurologic: Denies seizure-like symptoms. No acute strokelike symptoms. skin: Generalized itching, pruritus and scratch mac Endocrinology: Reports systems reviewed and no addt'l complaints, except as documented Hematologic/Lymphatic: Reports systems reviewed and no addt'l complaints, except as documented Rest 14 ROS are negative except as mentioned in HPI Physical Exam Narrative General: Alert, Oriented x3, Cooperative HEENT: Deep yellow icterus. Atraumatic, PERRLA, EOMI, Normocephalic Oral: Oral mucosa dry. No Gingival or Mucosal Lesions/ Ulcerations Neck: Supple, No JVD, Negative Carotid Bruits Lungs: Air entry diminished in bilateral lung bases. No crepitation/rhonchi Cardiovascular: Regular rate, Regular Rhythm, Normal S1, Normal S2, No murmurs Abdomen: Bowel Sounds Present, Soft, Non Tender, Non-Distended : No renal angle tenderness. No suprapubic tenderness. Extremities: No edema, Capillary Refill Less than 3 Seconds Skin: Scratch mac over lower legs. Skin yellowish color Musculoskeletal: No Tenderness to Palpation of Joints or Extremities. Right TKR. ROM full. Neurological: Cranial nerves II-XII grossly intact, DTR 2+/4 and Symmetrical, Neuro grossly intact Psych/Mental Status: Normal Affect, Appropriate. Lab / Micro Data 10/08/22 10:50 10/08/22 10:50 Labs: Laboratory Results - last 24 hr 10/08/22 10:50: WBC 10.8, RBC 5.46 H, Hgb 16.2 H, Hct 48.5 H, MCV 88.8, MCH 2 9.7, MCHC 33.4, RDW Std Deviation 52.8 H, RDW Coeff of Gisella 16.2 H, Plt Count 195, MPV 13.5 H, Immature Gran % (Auto) 0.300, Neut % (Auto) 64.9, Lymph % (Auto) 15.2 L, [place] % (Auto) 16.5 H, Eos % (Auto) 1.9, Baso % (Auto) 1.2 H, Absolute Neuts (auto) 7.0, Absolute Lymphs (auto) 1.64, Nucleated RBC % 0, Sodium 137, Potassium 3.6, Chloride 104, Carbon Dioxide 23.0, Anion Gap 10, BUN 10, Creatinine 1.09 H, Estim Creat Clear Calc 47.53, Est GFR (MDRD) Af Amer 65, Est GFR (MDRD) Non-Af 53 L, BUN/Creatinine Ratio 9.2 L, Glucose 116 H, Calcium 9.4, Phosphorus 3.1, Magnesium 1.8, Total Bilirubin 7.30 H, Direct Bilirubin 5.17 H, AST 116 H, ALT 231 H, Alkaline Phosphatase 582 H, Total Protein 7.2, Albumin 3.3, Globulin 3.9, Albumin/Globulin Ratio 0.8 L, Lipase 63 10/08/22 11:15: PT 12.9, INR 1.0, APTT 36.1 10/08/22 11:18: Urine Color Yellow, Urine Clarity Clear, Urine pH 7.0, Ur Speci fic [place] 1.005, Urine Protein 30 H, Urine Glucose (UA) Normal, Urine Ketones Negative, Urine Occult Blood 10 H, Urine Nitrite Negative, Urine Bilirubin 1 H, Urine Urobilinogen Normal, Ur Leukocyte Esterase Negative, Urine RBC 0 SEEN, Urine WBC 0 SEEN, Ur Squamous Epith Cells 0-5 SEEN, Urine Bacteria 0 SEEN, Urine Mucus 0 SEEN Assessment & Plan Assessment/Plan (1) Jaundice: (2) Bilirubinemia: (3) Transaminitis: (4) Liver mass: PLAN: Plan 67-year-old with past medical history of nicotine addiction with recent chest pa in and possible aortic aneurysm. That was ruled out along with coronary artery disease at [facility] last week. She is in today with worsening abdominal pain and discovered to be jaundice. Her bilirubin is up to 5. She had mild elevation of her lipase at 87. 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 She will need to undergo ERCP with spyglass and biopsies. She will also need decompression of the remy hepatis. She was explained alternatives, risk and benefits including outstanding bleeding, infection, sepsis, perforation, need for return to . She will have an ASA of 3. Charges/Coding Visit Charges Inpatient E&M: 14682 Init Hosp L3
[2022-10-08] MEDS: KCL 20MEQ in 0.9% NS 20 MEQ/1,000 ML IV.SOLN. 75 MEQ IV (17:12)
[2022-10-08 18:56] VITALS: BP 130/68; PULSE 82; RESP 18; O2SAT 96
[2022-10-08 20:44] VITALS: BP 105/61; PULSE 67; RESP 16; TEMP 36.7; O2SAT 94
[2022-10-08] MEDS: Sertraline 50 MG Tablet 25 MG PO (21:05)
[2022-10-08] MEDS: Ursodiol 250 MG Tablet 500 MG PO (21:06)
[2022-10-09] VITALS (14 sets, daily range): BP systolic 99–150; BP diastolic 52–83; PULSE 67–91; RESP 16–18; TEMP 36.6–36.8; O2SAT 92–96; BMI 35.3
--- NOTE | 2022-10-09 05:00 | EKG12_ITS ---
Test Reason : PRE OP Blood Pressure : / mmHG Vent. Rate : 068 BPM Atrial Rate : 068 BPM P-R Int : 166 ms QRS Dur : 088 ms QT Int : 424 ms P-R-T Axes : 051 018 023 degrees QTc Int : 450 ms Normal sinus rhythm Normal ECG When compared with ECG of 30-JUL-2022 09:09, No significant change was found Confirmed by FABIANA CHILEL, AROLDO ([id number]), general expeditor STEVEN NORRIS ([id number]) on 10/09/2022 12:47:59 PM Referred By: DA Confirmed By:AROLDO JUNG MD
--- NOTE | 2022-10-09 05:00 | RAD_ITS ---
EXAM: XR CHEST, 1 VIEW CLINICAL INDICATION: preoperative TECHNIQUE: Frontal view of the chest. COMPARISON: 07/30/2022. FINDINGS: LUNGS AND PLEURAL SPACES: Unremarkable. No consolidation or edema. No pneumothorax. No effusion. HEART: Unremarkable. Cardiac silhouette not enlarged. MEDIASTINUM: Central airways and mediastinal contour are unremarkable. BONES/JOINTS: Unremarkable. SOFT TISSUES: Unremarkable. RAD/Chest 1 View (Portable) IMPRESSION: No radiographic evidence of acute cardiopulmonary disease. Electronically Signed: Jude Rosario MD at 5:22 EDT ,
[2022-10-09] MEDS: KCL 20MEQ in 0.9% NS 20 MEQ/1,000 ML IV.SOLN. 75 MEQ IV (05:41)
[2022-10-09 06:20] LABS: Absolute Lymphocyte Count 1.42 X10^3/uL (0.83-4.51); Absolute Neutrophil Count 5.4 X10^3/uL (2.0-7.7); Basophil# 0.09 X10^3/uL; Eosinophil# 0.22 X10^3/uL; Eosinophils% 2.5 % (0-5); Hematocrit 43.8 % (37-47); Hemoglobin 14.6 g/dL (12.0-15.0); Lymphocyte # 1.42 X10^3/ul (0.83-4.51); Lymphocyte % 16.4 % (19-41); Mean Corp Hgb Conc 33.3 g/dL (32-36); Mean Corpuscular Hgb 29.7 pg (27.0-32.0); Mean Platelet Vol. 13.8 fl (6.2-12.0); Monocyte# 1.56 X10^3/uL; NRBC Flagged by Analyzer 0 % (0-5); Neutrophil # 5.36 X10^3/uL (2.7-7.7); Neutrophil % 61.8 % (47-70); POSITIVE DIFFERENTIAL YES; Platelet Count 155 K/mm3 (150-450); RBC Distribution Width CV 16.3 % (11.6-14.6); RBC Distribution Width SD 53.4 fl (35.1-43.9); Red Blood Count 4.92 M/mm3 (4.2-5.4)
[2022-10-09 07:08] LABS: ALB/GLOB Ratio 0.8 RATIO (0.9-2.4); AST(SGOT) 99 U/L (15-37); Alanine Aminotransfer ALT/SGPT 184 U/L (13-56); Albumin, Serum 2.7 g/dL (3.2-5.0); Alkaline Phosphatase 506 U/L (45-117); Anion Gap 8 (5-15); BUN 10 mg/dL (7-18); BUN/Creat Ratio 11.3 RATIO (10-20); Calcium,Total 9.1 mg/dL (8.5-10.1); Chloride 113 mmol/L (98-107); Creatinine, Serum 0.88 mg/dL (0.55-1.02); EST Glomerular Filtration Rate 68 mL/min (>60); Est Glom Filt Rate - Afr Amer 82 mL/min (>60); Estimated Creatinine Clearance 58.87 ml/min; Globulin 3.5 g/dL (2.2-4.2); Glucose 73 mg/dL (74-106); Protein, Total 6.2 g/dL (6.4-8.2); Sodium Level 143 mmol/L (136-145)
[2022-10-09 07:21] LABS: Differential Indicated SCAN CRITERIA MET
--- NOTE | 2022-10-09 07:43 | PCM.PN.HOSP ---
Reason for Visit Reason for Visit: Diagnoses Hepatomegaly, not elsewhere classified (10/08/22) Subjective Subjective Follow-up for mass at hilum of liver with suspicion of cholangiocarcinoma Objective Data Objective Data Vital Signs: Vital Signs Temp Pulse Resp BP Pulse Ox O2 Del Method 98.3 F 90 18 145/83 H 93 Room Air 10/09/22 07:37 10/09/22 07:37 10/09/22 07:37 10/09/22 07:37 10/09/22 07:37 10/09/22 07:37 Oxygen Delivery Method Room Air Weight: 218 lb 11.177 oz Body Mass Index (BMI) 35.3 Intake & Output: Intake and Output for Last 24 Hours 10/07/22 10/08/22 10/09/22 23:59 23:59 23:59 Intake Total 1271.5 / 1271.5 1301.25 / 1301.25 Balance 1271.5 / 1271.5 1301.25 / 1301.25 Lab / Micro Data 10/09/22 04:38 10/09/22 04:38 Labs: Laboratory Results - last 24 hr 10/08/22 10:50: WBC 10.8, RBC 5.46 H, Hgb 16.2 H, Hct 48.5 H, MCV 88.8, MCH 29.7, MCHC 33.4, RDW Std Deviation 52.8 H, RDW Coeff of Gisella 16.2 H, Plt Count 195, MPV 13.5 H, Immature Gran % (Auto) 0.300, Neut % (Auto) 64.9, Lymph % (Auto) 15.2 L, [place] % (Auto) 16.5 H, Eos % (Auto) 1.9, Baso % (Auto) 1.2 H, Absolute Neuts (auto) 7.0, Absolute Lymphs (auto) 1.64, Nucleated RBC % 0, Sodium 137, Potassium 3.6, Chloride 104, Carbon Dioxide 23.0, Anion Gap 10, BUN 10, Creatinine 1.09 H, Estim Creat Clear Calc 47.53, Est GFR (MDRD) Af Amer 65, Est GFR (MDRD) Non-Af 53 L, BUN/Creatinine Ratio 9.2 L, Glucose 116 H, Calcium 9.4, Phosphorus 3.1, Magnesium 1.8, Total Bilirubin 7.30 H, Direct Bilirubin 5.17 H, AST 116 H, ALT 231 H, Alkaline Phosphatase 582 H, Total Protein 7.2, Albumin 3.3, Globulin 3.9, Albumin/Globulin Ratio 0.8 L, Lipase 63 10/08/22 11:15: PT 12.9, INR 1.0, APTT 36.1 10/08/22 11:18: Urine Color Yellow, Urine Clarity Clear, Urine pH 7.0, Ur Specific [place] 1.005, Urine Protein 30 H, Urine Glucose (UA) Normal, Urine Ketones Negative, Urine Occult Blood 10 H, Urine Nitrite Negative, Urine Bilirubin 1 H, Urine Urobilinogen Normal, Ur Leukocyte Esterase Negative, Urine RBC 0 SEEN, Urine WBC 0 SEEN, Ur Squamous Epith Cells 0-5 SEEN, Urine Bacteria 0 SEEN, Urine Mucus 0 SEEN 10/09/22 04:38: WBC 7.0, RBC 4.92, Hgb 14.6, Hct 43.8, MCV 89.0, MCH 29.7, MCHC 33.3, RDW Std Deviation 53.4 H, RDW Coeff of Gisella 16.3 H, Plt Count 155, MPV 13.8 H, Immature Gran % (Auto) 0.300, Neut % (Auto) 61.8, Lymph % (Auto) 16.4 L, [place] % (Auto) 18.0 H, Eos % (Auto) 2.5, Baso % (Auto) 1.0, Absolute Neuts (auto) 5.4, Absolute Lymphs (auto) 1.42, Nucleated RBC % 0, Sodium 143, Potassium 4.0, Chloride 113 H, Carbon Dioxide 22.0, Anion Gap 8, BUN 10, Creatinine 0.88, Estim Creat Clear Calc 58.87, Est GFR (MDRD) Af Amer 82, Est GFR (MDRD) Non-Af 68, BUN/Creatinine Ratio 11.3, Glucose 73 L, Calcium 9.1, Total Bilirubin 6.90 H, AST 99 H, ALT 184 H, Alkaline Phosphatase 506 H, Total Protein 6.2 L, Albumin 2.7 L, Globulin 3.5, Albumin/Globulin Ratio 0.8 L Radiography Diagnostic Testing: Radiology Impression MRCP 10/08/22 14:19 IMPRESSION: Limited evaluation without IV contrast. Despite limitations: 3.3 cm ill-defined mass in segment 2/4 B of the liver consistent with known cholangiocarcinoma. There is associated moderate obstruction of the intrahepatic biliary ducts. No evidence of metastatic disease in the abdomen. Electronically Signed: Terrence Stover MD at 17:57 EDT , ADDENDUM: 10/08/22 1835 IMPRESSION: undefined Chest X-Ray 10/09/22 05:00 IMPRESSION: No radiographic evidence of acute cardiopulmonary disease. Electronically Signed: Jude Rosario MD at 5:22 EDT , Physical Exam Narrative Seen and examined. Patient and daughter, Rozina present in the room. Patient abdominal pain is better. Her itching got better with a dose of Benadryl and Thorazine. No vomiting. Plan for ERCP today. Total bilirubin decreasing. No fever Physical exam General: Alert, Oriented x3, Cooperative HEENT: Deep yellow icterus. Atraumatic, PERRLA, EOMI, Normocephalic Oral: Oral mucosa moist. No Gingival or Mucosal Lesions/ Ulcerations Neck: Supple, No JVD, Negative Carotid Bruits Lungs: Air entry diminished in bilateral lung bases. No crepitation/rhonchi Cardiovascular: Regular rate, Regular Rhythm, Normal S1, Normal S2, No murmurs Abdomen: Mild tenderness over right upper quadrant. Bowel Sounds Present, Soft, : No renal angle tenderness. No suprapubic tenderness. Extremities: No edema, Capillary Refill Less than 3 Seconds Skin: Scratch mac over lower legs. Skin yellowish color Musculoskeletal: No Tenderness to Palpation of Joints or Extremities. Right TKR. ROM full. Neurological: Cranial nerves II-XII grossly intact, DTR 2+/4 and Symmetrical, Neuro grossly intact Psych/Mental Status: Normal Affect, Appropriate. Assessment & Plan Assessment/Plan (1) Liver mass: PLAN: Plan This 67-year-old female is being admitted for new onset jaundice and right upper quadrant abdominal pain found to have liver mass on CT abdomen. 1. Liver irregular 4.3 cm mass central hilar and location, cause for obstructive jaundice, suspicion for cholangiocarcinoma: It shows infiltrative, irregular mass about 4.3 cm around the hilum of liver with peripheral biliary dilatation. As reported right portal vein patent left portal vein not seen but with collateral vessels. Mild compression of main portal vein. Patient is being admitted in [facility] floor. MRCP ordered. There is compression of the main portal vein with elevation in total bilirubin, alkaline phosphatase and transaminases. IV Zosyn ordered. MRCP ordered. Lovenox 1 mg/kg body weight every 12 hourly. Further plan for EGD and MRCP. Monitor liver chemistry daily. 10/09: MRCP images individually reviewed. Ill-defined 3 x 3.3 cm central T2 hyperintense mass in segment 2/4B. GB not visualized and it was also not visualized in CT scan. CBD normal caliber but common hepatic duct not seen with moderate dilatation of intrahepatic biliary ducts. Ascites absent. Spleen pancreas and adrenal glands unremarkable. Lymphadenopathy absent. Continue IV antibiotics. Enoxaparin on hold for planned ERCP today. Discussed with the test technician. 2. CAD, two-vessel disease: She had work-up in [facility] in July 2022. Patient currently on baby aspirin and beta-justo. Medications continued. Try to obtain medical record from [facility]. 3. GERD on PPI: Continue PPI. Will need EGD 4. Left upper lobe pulmonary nodule unclear possible metastatic lesion of liver mass: CT abdomen and pelvis showed multiple bilateral lung base pulmonary nodules, largest right anteriorly 1.[address] Guerrero and he mentioned left upper lobe nodule and advised to repeat CT chest in 3 months in clinic visit on August 2022. Initially she follows Dr. Guerrero for leukocytosis. 5. Dyslipidemia degenerative osteoarthritis, History of right TKR and morbid obesity: Her BMI is 35.3 kg/m?: Hold atorvastatin in view of increased total bilirubin and liver chemistry. DVT prophylaxis, high risk with compression of main portal vein: On therapeutic dose of Lovenox as mentioned above. Living will/advanced directive/end of life care: Patient does have living will or advanced directive. Her is power of traffic law attorney for health. Her daughter is charge nurse on [facility] 3. After discussion of benefits/risks procedures involved with full code, DNR CC arrest and DNR CC, the patient opted for full code. Patient does want artificial life support including intubation, tube feed, ventilator and/chest compression, central venous catheter, vasopressor and DC shock if needed Patient is stated that she does not want intubation or ventilator but CPR. I tried to educate this is not a viable option as he does not carry clinical good outcome. Viable options are full code, DNR CC arrest with no intubation, DNRCC arrest with intubation and DNR CC. Patient and her family will think on it. Charges/Coding Visit Charges Inpatient E&M: 64772 Subs Hosp L2
[2022-10-09 07:45] LABS: Hemoglobin A1c 6.4 % (3.8-5.6)
[2022-10-09 07:58] LABS: Bedside Glucose 88 mg/dL (74-106)
[2022-10-09 08:41] LABS: Differential Comment SCANNED
[2022-10-09] MEDS: Metoprolol(XL)Succ 50 MG Tablet 25 MG PO (10:48)
--- NOTE | 2022-10-09 11:10 | CASEMGMT ---
LISA BLACK Assessment: Face to Face with pt for initial transition planning/care coordination assessment. RN WAYNE introduced self and role at [facility], pt voices understanding and consents to assessment. Pt is A/O x4 and answers all questions appropriately at this time. Pt lying in bed with at bedside in no distress. Care providers, pharmacy, and demographics verified/updated. Admitting Dx: obstructive cholangiocarcinoma PCP:Ness Guido NP Specialists:Friend, GI; Prah, onc Preferred Pharmacy: [facility] Insurance: [employer] Prescription Benefit: yes LNOK: Raymundo Ward, ; Rozina Sanders dtr Living Arrangements: Pt lives with in a single story home with 1 step to enter. Pt reports she is I in ADL's and denies concerns at home. Transportation: Pt drives self and denies concerns with transportation. DME/HHC/SNF: Pt denies having any DME in the home, previous HHC or SNF stays. Pt states no concerns with going home at time of dc. Pt states no further concerns/needs. CM to follow. Advised pt to ask CM if any further question/concerns/needs arise, voices understanding. Pt Goal: Home Plan: Home
[2022-10-09 12:05] LABS: Bedside Glucose 93 mg/dL (74-106)
--- NOTE | 2022-10-09 12:58 | PN.GI_ITS ---
Subjective Subjective Patient says that her today itching is a little bit better. No events overnight. She remains afebrile. Objective Data Objective Data Vital Signs: Vital Signs Temp Pulse Resp BP Pulse Ox O2 Del Method 98.3 F 67 18 124/61 H 93 Room Air 10/09/22 07:37 10/09/22 10:48 10/09/22 07:37 10/09/22 10:48 10/09/22 07:37 10/09/22 07:37 Oxygen Delivery Method Room Air Weight: 218 lb 11.177 oz Body Mass Index (BMI) 35.3 Intake & Output: Intake and Output for Last 24 Hours 10/07/22 10/08/22 10/09/22 23:59 23:59 23:59 Intake Total 1271.5 / 1271.5 1351.25 / 1351.25 Balance 1271.5 / 1271.5 1351.25 / 1351.25 Lab / Micro Data 10/09/22 04:38 10/09/22 04:38 Labs: Laboratory Results - last 24 hr 10/08/22 10:50: Phosphorus 3.1, Magnesium 1.8, Direct Bilirubin 5.17 H 10/09/22 04:38: WBC 7.0, RBC 4.92, Hgb 14.6, Hct 43.8, MCV 89.0, MCH 29.7, MCHC 33.3, RDW Std Deviation 53.4 H, RDW Coeff of Gisella 16.3 H, Plt Count 155, MPV 13.8 H, Immature Gran % (Auto) 0.300, Neut % (Auto) 61.8, Lymph % (Auto) 16.4 L, [place] % (Auto) 18.0 H, Eos % (Auto) 2.5, Baso % (Auto) 1.0, Absolute Neuts (auto) 5.4, Absolute Lymphs (auto) 1.42, Nucleated RBC % 0, Differential Comment SCANNED, Sodium 143, Potassium 4.0, Chloride 113 H, Carbon Dioxide 22.0, Anion Gap 8, BUN 10, Creatinine 0.88, Estim Creat Clear Calc 58.87, Est GFR (MDRD) Af Amer 82, Est GFR (MDRD) Non-Af 68, BUN/Creatinine Ratio 11.3, Glucose 73 L, Hemoglobin A1c 6.4 H, Calcium 9.1, Total Bilirubin 6.90 H, AST 99 H, ALT 184 H, Alkaline Phosphatase 506 H, Total Protein 6.2 L, Albumin 2.7 L, Globulin 3.5, Albumin/Globulin Ratio 0.8 L 10/09/22 07:31: POC Glucose 88 10/09/22 11:16: POC Glucose 93 Radiography Diagnostic Testing: Radiology Impression MRCP 10/08/22 14:19 IMPRESSION: Limited evaluation without IV contrast. Despite limitations: 3.3 cm ill-defined mass in segment 2/4 B of the liver consistent with known cholangiocarcinoma. There is associated moderate obstruction of the intrahepatic biliary ducts. No evidence of metastatic disease in the abdomen. Electronically Signed: Terrence Stover MD at 17:57 EDT , ADDENDUM: 10/08/22 1835 IMPRESSION: undefined Chest X-Ray 10/09/22 05:00 IMPRESSION: No radiographic evidence of acute cardiopulmonary disease. Electronically Signed: Jude Rosario MD at 5:22 EDT , Physical Exam Narrative General: Alert, Oriented x3, Cooperative HEENT: Deep yellow icterus. Atraumatic, PERRLA, EOMI, Normocephalic Oral: Oral mucosa dry. No Gingival or Mucosal Lesions/ Ulcerations Neck: Supple, No JVD, Negative Carotid Bruits Lungs: Air entry diminished in bilateral lung bases. No crepitation/rhonchi Cardiovascular: Regular rate, Regular Rhythm, Normal S1, Normal S2, No murmurs Abdomen: Bowel Sounds Present, Soft, Non Tender, Non-Distended : No renal angle tenderness. No suprapubic tenderness. Extremities: No edema, Capillary Refill Less than 3 Seconds Skin: Scratch mac over lower legs. Skin yellowish color Musculoskeletal: No Tenderness to Palpation of Joints or Extremities. Right TKR. ROM full. Neurological: Cranial nerves II-XII grossly intact, DTR 2+/4 and Symmetrical, Neuro grossly intact Psych/Mental Status: Normal Affect, Appropriate. Assessment & Plan Assessment/Plan (1) Jaundice: (2) Bilirubinemia: (3) Transaminitis: (4) Liver mass: PLAN: Plan 67-year-old with past medical history of nicotine addiction with recent chest pain and possible aortic aneurysm. That was ruled out along with coronary artery disease at [facility] last week. She is in today with worsening abdominal pain and discovered to be jaundice. Her bilirubin is up to 5. She had mild elevation of her lipase at 87. 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 She will need to undergo ERCP with spyglass and biopsies. She will also need decompression of the remy hepatis. She was explained alternatives, risk and benefits including outstanding bleeding, infection, sepsis, perforation, need for return to . She will have an ASA of 3. 10/09: Continue to hold Lovenox. Plan is for ERCP today Charges/Coding Visit Charges Inpatient E&M: 79807 Subs Hosp L2
--- NOTE | 2022-10-09 13:19 | CASEMGMT ---
Social Work SW met with pt and spouse and discussed Advance Directives. Pt would like to complete at this time. SW assisted pt in completing a living will and Health Care POA naming her daughter Rozina Sanders. Originals given to pt and copies placed on pt chart. HAIDER Lou
[2022-10-09] MEDS: 0.9% Saline Lock 10 ML Syringe IV ×2 (13:31→23:00)
--- NOTE | 2022-10-09 13:54 | NURSING ---
pt went down for surgery
[2022-10-09] MEDS: 0.9% Normal Saline 1,000 ML 15 ML IV (14:15)
--- NOTE | 2022-10-09 14:50 | RAD_ITS ---
Fluoroscopic guided ERCP INDICATION: Abdominal pain TECHNIQUE: Fluoroscopic-guided ERCP was performed in the anterior projection utilizing 369.1 seconds of fluoroscopic time. FINDINGS: 23 fluoroscopic guided images were obtained during the study in the anterior projection to document findings during the procedure. For more complete information recommend correlation with procedural notes. RAD/ERCP Biliary/Pancreas IMPRESSION: Fluoroscopic-guided ERCP Electronically Signed: Gregorio Park MD at 17:48 EDT ,
--- NOTE | 2022-10-09 15:00 | TISS_PTH ---
PATIENT: ASIYA SCOTT LOC: [facility] U#:[id number] AGE/SX: 67/F ROOM: ICU02 RE10/08/[address]: Dr. Manohar Mendez DO : 1955 BED: 1 DIS: 10/15/2022 SPEC #: [id number] RECD: 10/09/22 17:30 STATUS: SAMMIE REQ #: [id number] JOHN: 10/09/22 15:[address]: Jeremias Silvestre DEPT: SURGICAL PATHOLOGY RECD BY: Maggy Alfonso ENTERED: 10/12/22 09:34 SP TYPE: Tissue Bx OTHR DR: MD Dr. Manohar Urena DO Dr. Joseph Prah, MD Dr. Mansour Isckarus, MD Dr. Prakash Chand, MD Dr. Robert Field, MD Dr. Rahsaan Friend, DO Dr. Ryan Jin, MD Dr. Roger Macklis, MD Dr. Steve Walston, DO Elizabeth Steiner, NP-C YFN Curry Tissues: Bile duct, NOS Procedures: Surgery Specimen Level IV Comments: @ Ordering doctor for SUIV edited from to @ by HUNG at 10/12/22 549 @ Submitting doctor edited from to @ jaky PERSAUD at 10/12/224 HEADER OPERATION: ERCP, dilation, biliary stricture brushing, biopsy PRE-OP DIAGNOSIS: Jaundice, bilirubinemia, transaminitis, liver mass TISSUE SUBMITTED: Biliary mass biopsy via spy glass MICROSCOPIC DIAGNOSIS Biliary mass, biopsy via spy glass: Well-differentiated invasive adenocarcinoma. See comment. SJ:makenzie 10/13/2022 COMMENT Correlation with clinical, radiologic findings and appropriate follow up are necessary. Please also correlate with corresponding cytology [id number]. Molecular studies on the tumor can be performed if clinically indicated. Please notify the laboratory if they are needed. Case has been reviewed in consultation with Dr. Fallon who concurs with the above diagnosis. IDC:AM MICROSCOPIC DESCRIPTION Slides are reviewed. GROSS DESCRIPTION Received in fixative is one container labeled with the patient's name and designated biliary mass biopsy. The specimen consists of multiple irregular fragments of light ponce soft tissue that in aggregate measure 0.5 x 0.1 x 0.1 cm. The specimen is totally submitted in one cassette. / SJ:makenzie 10/12/2022 TC:0 CPT: 51207
--- NOTE | 2022-10-09 15:00 | FLU_PTH ---
PATIENT: ASIYA SCOTT LOC: ICU U#:[id number] AGE/SX: 67/F ROOM: ICU02 RE10/08/[address]: Dr. Manohar Mendez DO : 1955 BED: 1 DIS: 10/15/2022 SPEC #: [id number] RECD: 10/09/22 17:30 STATUS: SAMMIE REQ #: [id number] JOHN: 10/09/22 15:[address]: Jeremias Silvestre DEPT: CYTOLOGY RECD BY: Maggy Alfonso ENTERED: 10/12/22 09:33 SP TYPE: Fluid OTHR DR: MD Dr. Manohar Urena DO Dr. Joseph Prah, MD Dr. Mansour Isckarus, MD Dr. Prakash Chand, MD Dr. Robert Field, MD Dr. Rahsaan Friend, DO Dr. Ryan Jin, MD Dr. Roger Macklis, MD Dr. Steve Walston, DO Elizabeth Steiner SENIOR POLICY ANALYST-C Irena Cunningham NP-C Tissues: A - Bile duct, NOS B - Bile duct, NOS Procedures: Special Stain Group II Surgery Specimen Level IV Cytospin Fluid Cytology Other Comments: @ Ordering doctor for SSII edited from to @ by HUNG at 10/12/22 1457 @ Ordering doctor for SUIV edited from to @ by HUNG at 10/12/22 1457 @ Ordering doctor for CYSPIN edited from to @ by HUNG at 10/12/22 1457 @ Ordering doctor for CYOTHER edited from to @ by HUNG at 10/12/22 1457 @ Submitting doctor edited from to @ by RGOOD at 10/12/22 1457 HEADER OPERATION: ERCP, dilation, biliary stricture brushing, biopsy PRE-OP DIAGNOSIS: Jaundice, bilirubinemia, transaminitis, liver mass TISSUE SUBMITTED: A - Biliary stricture brush tip and balloon, B - Biliary stricture brushings DIAGNOSIS CYTOLOGY A. Biliary stricture brush tip fluid (cytospin and cell block): Acellular specimen. B. Biliary stricture brushings (smears): Rare clusters of mildly atypical cells noted. SJ:makenzie 10/13/2022 COMMENT Please correlate with corresponding surgical specimen ([id number]), biliary mass biopsy via spy glass with diagnosis of well-differentiated invasive adenocarcinoma. Case has been reviewed in consultation with Dr. Fallon who concurs with the above diagnosis. IDC:AM CYTOLOGY STUDY Slides are reviewed. CYTOLOGY GROSS A - Received is a metallic endoscopic cytobrush with adherent minute fragments of ponce-red tissue brush in 2 ml of clear red fluid and labeled with the patient's name and and designated per the requisition as biliary stricture brush. The material is dislodged from the brush and submitted for cytology preparation including cell block. B - Received are three smears labeled with the patient's name and designated per the requisition as biliary strictures brushings. Submitted for staining. / makenzie 10/12/2022 TC:5 CPT: 47932, 79423, 65402
--- NOTE | 2022-10-09 15:20 | PCA ---
sent a request to medical records [facility]. have not recieved records at this time
--- NOTE | 2022-10-09 16:28 | CHAPLAIN ---
Type of Pastoral Visit _x__ Initial Visit ___ Follow-up Visit ___ On-call Visit ___ General Patient Visit ___ Spiritual Assessment ___ Family Conference ___ Bereavement ___ Rapid Response ___ Code Blue ___ Other (describe below) Pastoral Care Referral From _x__ Patient _x__ Family ___ Nurse ___ Physician ___ Cooky Packer ___ Engineer Conductor ___ Other (describe below) Sacrament/Intervention _x__ Active listening ___ Anointing ___ Hindu ___ Bereavement ___ Communion _x__ Harriet exploration ___ _x__ Life review _x__ Prayer ___ Reconciliation ___ Sacrament of Sick _x__ Supportive presence ___ Wedding ___ Other (describe below) Pastoral Comments 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 and she had requested a visit of support; pt is about to have surgery and is in AC when found; spouse is with her; both express the last few weeks of doctor visits and the very new diagnosis of liver cancer of this week; pt is asked about her emotions and mental state at this time; again both pt and spouse are talkative as they are given time to process it with this grease refining supervisor; there is yet much to determine and this surgery will be significant in the process; pt and spouse ask for prayers and are inviting of future support; this grease refining supervisor will be available as needed for emotional and spiritual support
--- NOTE | 2022-10-09 17:52 | OP.CCLET_ITS ---
10/09/2022 Ava Santamaria Re : ERCP procedure for Chiqui Ward Dear Hay This procedure was performed on Sunday, October 09, 2022. My impressions and recommendations are as follows: Impressions : - Biliary tumor of the bifurcation of the right and left hepatic ducts visualized via SpyGlass. - Hemostasis of bleeding caused by the procedure in the ampulla with a heater probe was performed. - A biliary tract obstruction secondary to what appeared to be a mass was found in the bifurcation of the right and left hepatic ducts. - Multiple severe biliary strictures were found. The strictures were malignant appearing. - The common hepatic duct was severely dilated, secondary to a stricture. - A biliary sphincterotomy was performed. - The biliary tree was swept and sludge, mucus and clots were found. - The left main hepatic duct was successfully dilated. - The hepatic duct bifurcation was successfully dilated. - Cells for cytology obtained at the hepatic duct bifurcation. - Biopsy was performed at the hepatic duct bifurcation. - One temporary stent was placed into the common bile duct. Recommendations : My findings are described in the full procedure note, which is enclosed. If I can be of further assistance, please feel free to contact me at . Sincerely, Jeremias Silvestre, 10/09/2022 5:51:30 PM This report has been signed electronically.
--- NOTE | 2022-10-09 17:52 | OP.ERCP_ITS ---
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 Refer to note in patient chart for documentation of history and physical. Patient has symptoms of acute jaundice. This patient has no history of previous ERCP. Complications: No immediate complications. Procedure: Pre-Anesthesia Assessment: - Prior to the procedure, a History and Physical was performed, and patient medications and allergies were reviewed. The patient is competent. The risks and benefits of the procedure and the sedation options and risks were discussed with the patient. All questions were answered and informed consent was obtained. Patient identification and proposed procedure were verified by the physician in the pre-procedure area. Mental Status Examination: alert and oriented. Airway Examination: normal oropharyngeal airway and neck mobility. Respiratory Examination: clear to auscultation. CV Examination: normal. Prophylactic Antibiotics: The patient does not require prophylactic antibiotics. Prior Anticoagulants: The patient has taken no previous anticoagulant or antiplatelet agents. ASA Grade Assessment: III - A patient with severe systemic disease. After reviewing the risks and benefits, the patient was deemed in satisfactory condition to undergo the procedure. The anesthesia plan was to use general anesthesia. Immediately prior to administration of medications, the patient was re-assessed for adequacy to receive sedatives. The heart rate, respiratory rate, oxygen saturations, blood pressure, adequacy of pulmonary ventilation, and response to care were monitored throughout the procedure. The physical status of the patient was re-assessed after the procedure. After obtaining informed consent, the scope was passed under direct vision. Throughout the procedure, the patient's blood pressure, pulse, and oxygen saturations were monitored continuously. The Duodenoscope was introduced through the mouth, and advanced to the duodenum and used for direct visualization of the bile duct. The ERCP was accomplished without difficulty. The patient tolerated the procedure well. Scope In: 3:36:56 PM Scope Out: 5:01:36 PM Total Procedure Duration Time 1 hour 24 minutes 40 seconds Findings: The textile slitting machine operator film was normal. The esophagus was successfully intubated under direct vision. The scope was advanced to a normal major papilla in the descending duodenum without detailed examination of the pharynx, larynx and associated structures, and upper GI tract. The upper GI tract was grossly normal. The bile duct was deeply cannulated with the short-nosed traction sphincterotome. Contrast was injected. I personally interpreted the bile duct images. There was brisk flow of contrast through the ducts. Image quality was adequate. Contrast extended to the main bile duct. The hepatic duct bifurcation was completely obstructed by what appeared to be a mass. Opacification of the main bile duct was successful. The maximum diameter of the ducts was 7 mm. The hepatic duct bifurcation contained multiple severe stenoses 3 mm in length. The common hepatic duct was severely dilated, secondary to a stricture. A straight Roadrunner wire was passed into the biliary tree. A 5 mm biliary sphincterotomy was made with a braided traction (standard) sphincterotome using ERBE electrocautery. Moderate bleeding from the sphincterotomy stopped within 5 minutes. To discover objects, the biliary tree was swept with a 15 mm balloon starting at the bifurcation. Sludge was swept from the duct. Mucus was swept from the duct. Clots were swept from the duct. Dilation of the left main hepatic duct with 10 Fr catheter dilator was successful. The hepatic duct bifurcation was successfully dilated with a 10-11-12 mm balloon (to a maximum balloon size of 10 mm) dilator. Cells for cytology were obtained by brushing in the hepatic duct bifurcation. The bile duct was explored endoscopically using the SpyGlass direct visualization system. The SpyScope was advanced to the bifurcation. Visibility with the scope was excellent. The hepatic duct bifurcation contained a ulcerated mass. The bile duct was explored endoscopically using the SpyGlass direct visualization system. The SpyGlass probe was advanced to the bifurcation. Visibility with the probe was excellent. The hepatic duct bifurcation was biopsied with a [employer] miniature biopsy forceps for histology. One 7 Fr by 15 cm temporary stent with a single external flap and two internal flaps was placed 5 cm into the common bile duct. Bile flowed through the stent. The stent was in good position. Coagulation for hemostasis of bleeding caused by the procedure in the ampulla using heater probe through the esophagogastroduodenoscope was successful. 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 - Hemostasis of bleeding caused by the procedure in the ampulla with a heater probe was performed. - A biliary tract obstruction secondary to what appeared to be a mass was found in the bifurcation of the right and left hepatic ducts. - Multiple severe biliary strictures were found. The strictures were malignant appearing. - The common hepatic duct was severely dilated, secondary to a stricture. - A biliary sphincterotomy was performed. - The biliary tree was swept and sludge, mucus and clots were found. - The left main hepatic duct was successfully dilated. - The hepatic duct bifurcation was successfully dilated. - Cells for cytology obtained at the hepatic duct bifurcation. - Biopsy was performed at the hepatic duct bifurcation. - One temporary stent was placed into the common bile duct. Procedure Code(s): --- Professional --- 97701, Endoscopic retrograde cholangiopancreatography (ERCP); with placement of endoscopic stent into biliary or pancreatic duct, including pre- and post-dilation and guide wire passage, when performed, including sphincterotomy, when performed, each stent 73367, 59, Endoscopic retrograde cholangiopancreatography (ERCP); with trans-endoscopic balloon dilation of biliary/pancreatic duct(s) or of ampulla (sphincteroplasty), including sphincterotomy, when performed, each duct 21565, 51, Endoscopic retrograde cholangiopancreatography (ERCP); with removal of calculi/debris from biliary/pancreatic duct(s) 80292, 59, Endoscopic retrograde cholangiopancreatography (ERCP); with biopsy, single or multiple 33770, Endoscopic cannulation of papilla with direct visualization of pancreatic/common bile duct(s) (List separately in addition to code(s) for primary procedure) 41935, 26, Endoscopic catheterization of the biliary ductal system, radiological supervision and interpretation CPT copyright 2017 [employer]. All rights reserved. The codes documented in this report are preliminary and upon medical records coder review may be revised to meet current compliance requirements. Jeremias Silvestre DO 10/09/2022 5:51:30 PM This report has been signed electronically. Number of Addenda: 0 Note Initiated On: 10/09/2022 2:15 PM
[2022-10-09] MEDS: SimETHICONE 80 MG Chewable Tablet 160 MG PO (18:00)
[2022-10-09] MEDS: Acetaminophen 325 MG Tablet 650 MG PO (20:13)
[2022-10-09] MEDS: Ursodiol 250 MG Tablet 500 MG PO (22:59)
[2022-10-09] MEDS: Sertraline 50 MG Tablet 25 MG PO (22:59)
[2022-10-10] VITALS (8 sets, daily range): BP systolic 97–125; BP diastolic 48–78; PULSE 64–89; RESP 16–18; TEMP 36.5–37.5; O2SAT 2–98
[2022-10-10] MEDS: Morphine 2 MG/ML Syringe IV ×2 (00:39→06:36)
[2022-10-10 04:07] LABS: AFP, Tumor Marker 4.1 ng/mL (0.0-9.2); Carbohydrate AG 19-9 462 U/mL (0-35); Carcinoembryonic Antigen 2.8 ng/mL (0.0-4.7)
[2022-10-10] MEDS: Ondansetron 4 MG/2 ML Vial IV (06:18)
[2022-10-10] MEDS: Pantoprazole Sodium 40 MG Tablet PO (06:31)
--- NOTE | 2022-10-10 06:46 | EKG12_ITS ---
Test Reason : CHEST PRESSURE Blood Pressure : / mmHG Vent. Rate : 069 BPM Atrial Rate : 069 BPM P-R Int : 166 ms QRS Dur : 088 ms QT Int : 408 ms P-R-T Axes : 060 041 050 degrees QTc Int : 437 ms Normal sinus rhythm Normal ECG When compared with ECG of 09-OCT-2022 05:40, No significant change was found Confirmed by FABIANA CHILEL, AROLDO ([id number]), supervising editor trailer STEVEN NORRIS ([id number]) on 10/10/2022 10:11:27 AM Referred By: EDNA Confirmed By:AROLDO JUNG MD
--- NOTE | 2022-10-10 06:51 | NURSING ---
Pt had a complaint this am of tightness and pressure and described it as a pain she has never had before. I medicated the patient with IV morphine and ordered a STAT EKG per policy and sent the results to DR. Vázquez.
[2022-10-10 06:59] LABS: Bedside Glucose 175 mg/dL (74-106)
[2022-10-10 07:00] LABS: Absolute Neutrophil Count 10.5 X10^3/uL (2.0-7.7); Basophil# 0.02 X10^3/uL; Basophil% 0.2 % (0-1); Hematocrit 48.5 % (37-47); Hemoglobin 15.7 g/dL (12.0-15.0); Lymphocyte % 5.6 % (19-41); Mean Corp Hgb Conc 32.4 g/dL (32-36); Mean Corpuscular Hgb 29.6 pg (27.0-32.0); Mean Corpuscular Volume 91.3 fL (81-99); Mean Platelet Vol. 14.4 fl (6.2-12.0); Monocyte# 1.11 X10^3/uL; Monocyte% 8.9 % (0-10); NRBC Flagged by Analyzer 0 % (0-5); Neutrophil # 10.54 X10^3/uL (2.7-7.7); Neutrophil % 84.8 % (47-70); POSITIVE COUNT YES; RBC Distribution Width CV 16.6 % (11.6-14.6); RBC Distribution Width SD 55.8 fl (35.1-43.9); Red Blood Count 5.31 M/mm3 (4.2-5.4); White Blood Count 12.4 K/mm3 (4.4-11.0)
[2022-10-10 07:01] LABS: Differential Indicated SCAN CRITERIA MET
[2022-10-10 07:28] LABS: Platelet Estimate ADEQUATE (ADEQ); Platelet Morphology LARGE
[2022-10-10 07:35] LABS: ALB/GLOB Ratio 0.8 RATIO (0.9-2.4); AST(SGOT) 95 U/L (15-37); Alanine Aminotransfer ALT/SGPT 178 U/L (13-56); Albumin, Serum 2.9 g/dL (3.2-5.0); Alkaline Phosphatase 503 U/L (45-117); Anion Gap 7 (5-15); BUN 15 mg/dL (7-18); BUN/Creat Ratio 16.1 RATIO (10-20); Calcium,Total 9.3 mg/dL (8.5-10.1); Chloride 109 mmol/L (98-107); Creatinine, Serum 0.93 mg/dL (0.55-1.02); EST Glomerular Filtration Rate 64 mL/min (>60); Est Glom Filt Rate - Afr Amer 77 mL/min (>60); Globulin 3.7 g/dL (2.2-4.2); Glucose 175 mg/dL (74-106); Potassium 4.1 mmol/L (3.5-5.1); Protein, Total 6.6 g/dL (6.4-8.2); Sodium Level 138 mmol/L (136-145)
[2022-10-10] MEDS: Mag Hydrox/Al Hydrox/Simeth 30 ML UDC PO (07:57)
[2022-10-10 08:35] LABS: Bilirubin, Direct 3.89 mg/dL (0.00-0.30)
[2022-10-10] MEDS: Metoclopramide 10 MG/2 ML Vial 5 MG IV (09:13)
[2022-10-10] MEDS: 0.9% Saline Lock 10 ML Syringe IV ×3 (09:13→19:59)
[2022-10-10] MEDS: HYDROmorphone 0.5 MG/0.5 ML SYRINGE IV (09:13)
[2022-10-10] MEDS: Ursodiol 250 MG Tablet 500 MG PO ×2 (11:18→21:50)
[2022-10-10] MEDS: Metoprolol(XL)Succ 50 MG Tablet 25 MG PO (11:18)
[2022-10-10] MEDS: Senna/Docusate Sodium 1 Tablet 2 TABLET PO (11:20)
[2022-10-10] MEDS: Enoxaparin 100 MG/ML Syringe SC ×2 (11:57→21:49)
--- NOTE | 2022-10-10 14:04 | PN.HOSP_ITS ---
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 Objective Data Objective Data Vital Signs: Vital Signs Temp Pulse Resp BP Pulse Ox O2 Del Method O2 Flow Rate 97.7 F L 73 16 123/59 H 95 Nasal Cannula 2 10/10/22 07:58 10/10/22 11:18 10/10/22 07:58 10/10/22 07:58 10/10/22 08:26 10/10/22 08:26 10/10/22 08:26 Oxygen Flow Rate (L/min) 2 Oxygen Delivery Method Nasal Cannula Weight: 218 lb 11.177 oz Body Mass Index (BMI) 35.3 Intake & Output: Intake and Output for Last 24 Hours 10/08/22 10/09/22 10/10/22 23:59 23:59 23:59 Intake Total 1271.5 / 1271.5 2311.25 / 2311.25 1600 / 1600 Output Total 600 / 600 Balance 1271.5 / 1271.5 2311.25 / 2311.25 1000 / 1000 Lab / Micro Data 10/10/22 05:00 10/10/22 05:00 Labs: Laboratory Results - last 24 hr 10/09/22 04:38: Tumor Marker AFP 4.1, Carcinoembryonic Ag 2.8, CA 19-9 Antigen 462 H 10/10/22 05:00: WBC 12.4 H, RBC 5.31, Hgb 15.7 H, Hct 48.5 H, MCV 91.3, MCH 29.6, MCHC 32.4, RDW Std Deviation 55.8 H, RDW Coeff of Gisella 16.6 H, Plt Count TNP, MPV 14.4 H, Immature Gran % (Auto) 0.500, Neut % (Auto) 84.8 H, Lymph % (Auto) 5.6 L, [place] % (Auto) 8.9, Eos % (Auto) 0.0, Baso % (Auto) 0.2, Absolute Neuts (auto) 10.5 H, Absolute Lymphs (auto) 0.70 L, Nucleated RBC % 0, Platelet Estimate ADEQUATE, Plt Morphology Comment LARGE, Sodium 138, Potassium 4.1, Chloride 109 H, Carbon Dioxide 22.0, Anion Gap 7, BUN 15, Creatinine 0.93, Estim Creat Clear Calc 55.70, Est GFR (MDRD) Af Amer 77, Est GFR (MDRD) Non-Af 64, BUN/Creatinine Ratio 16.1, Glucose 175 H, Calcium 9.3, Total Bilirubin 5.50 H, Direct Bilirubin 3.89 H, AST 95 H, ALT 178 H, Alkaline Phosphatase 503 H, Total Protein 6.6, Albumin 2.9 L, Globulin 3.7, Albumin/Globulin Ratio 0.8 L 10/10/22 06:23: POC Glucose 175 H Radiography Diagnostic Testing: Radiology Impression Endo Retro Cholangiopancreatogram 10/09/22 14:50 IMPRESSION: Fluoroscopic-guided ERCP Electronically Signed: Gregorio Park MD at 17:48 EDT Reading Location ID and State: [facility] / [place] , Service support , Physical Exam Narrative Seen and examined. Patient and daughter, Rozina present in the room. Patient having abdominal pain mainly epigastric and right upper quadrant. This started after the procedure about 10 PM. She rates her pain 10/10 intensity, constant with nausea and mild vomiting. No fever. Physical exam General: Alert, Oriented x3, Cooperative HEENT: Deep yellow icterus. Atraumatic, PERRLA, EOMI, Normocephalic Oral: Oral mucosa moist. No Gingival or Mucosal Lesions/ Ulcerations Neck: Supple, No JVD, Negative Carotid Bruits Lungs: Air entry diminished in bilateral lung bases. No crepitation/rhonchi Cardiovascular: Regular rate, Regular Rhythm, Normal S1, Normal S2, No murmurs Abdomen: Very tender right upper quadrant and epigastrium. Nondistended. Bowel Sounds Present, Soft, : No renal angle tenderness. No suprapubic tenderness. Extremities: No edema, Capillary Refill Less than 3 Seconds Skin: Scratch mac over lower legs. Skin yellowish color Musculoskeletal: No Tenderness to Palpation of Joints or Extremities. Right TKR. ROM full. Neurological: Cranial nerves II-XII grossly intact, DTR 2+/4 and Symmetrical, Neuro grossly intact Psych/Mental Status: Normal Affect, Appropriate. Assessment & Plan Assessment/Plan (1) Liver mass: PLAN: Plan This 67-year-old female is being admitted for new onset jaundice and right upper quadrant abdominal pain found to have liver mass on CT abdomen. 1. Liver irregular 4.3 cm mass central hilar and location, cause for obstructive jaundice, suspicion for cholangiocarcinoma: It shows infiltrative, irregular mass about 4.3 cm around the hilum of liver with peripheral biliary dilatation. As reported right portal vein patent left portal vein not seen but with collateral vessels. Mild compression of main portal vein. Patient is being admitted in [facility] floor. MRCP ordered. There is compression of the main portal vein with elevation in total bilirubin, alkaline phosphatase and transaminases. IV Zosyn ordered. MRCP ordered. Lovenox 1 mg/kg body weight every 12 hourly. Further plan for EGD and MRCP. Monitor liver chemistry daily. 10/10: ERCP on 10/09 shows biliary tumor at bifurcation of right and left hepatic ducts. Biliary tract obstruction secondary to mass and bifurcation of right and left hepatic ducts. Multiple severe biliary strictures, malignant appearing. CHD severely dilated secondary to stricture. Common hepatic duct and left main hepatic duct was successfully dilated. Cells for cytology and biopsy was performed at hepatic duct bifurcation. Oncologist was consulted yesterday but her oncologist Dr. Keenan is out of town for 3 weeks. After discharge patient can call on Wednesday for outpatient appointment or if she is stays inpatient can see Dr. Stokes No fever, leukocytosis went up after ERCP. Patient having severe abdominal pain most likely related to ERCP procedure because of air insufflation, stretching. Leukocytosis most likely inflammatory but patient is covered with antibiotic as chances of cholangitis is high. On IV Dilaudid, Reglan as prokinetic agent. Discussed with patient's and daughter near the bedside. 2. CAD, two-vessel disease: She had work-up in [facility] in July 2022. Patient currently on baby aspirin and beta-justo. Medications continued. Try to obtain medical record from [facility]. 3. GERD on PPI: Continue PPI. 4. Left upper lobe pulmonary nodule: CT abdomen and pelvis showed multiple bilateral lung base pulmonary nodules, largest right anteriorly 1.[address] Guerrero and he mentioned left upper lobe nodule and advised to repeat CT chest in 3 months in clinic visit on August 2022 5. Dyslipidemia degenerative osteoarthritis, History of right TKR and morbid obesity: Her BMI is 35.3 kg/m?: Hold atorvastatin in view of increased total bilirubin and liver chemistry. DVT prophylaxis, high risk with compression of main portal vein: On therapeutic dose of Lovenox as mentioned above. Living will/advanced directive/end of life care: Patient does have living will or advanced directive. Her is power of immigration attorney for health. Her daughter is charge nurse on [facility] 3. After discussion of benefits/risks procedures involved with full code, DNR CC arrest and DNR CC, the patient opted for full code. Patient does want artificial life support including intubation, tube feed, ventilator and/chest compression, central venous catheter, vasopressor and DC shock if needed Charges/Coding Visit Charges Inpatient E&M: 43753 Subs Hosp L2
[2022-10-10] MEDS: traMADol 50 MG Tablet PO ×2 (15:28→21:49)
[2022-10-10] MEDS: 0.9% Normal Saline 1,000 ML 125 ML IV ×2 (15:29→23:24)
[2022-10-10 16:19] LABS: Ammonia < 10.0 umol/L (11-32)
[2022-10-10] MEDS: Cholestyramine/Sucrose 4 GM/PACKET PO (16:21)
[2022-10-10] MEDS: HYDROmorphone 1 MG/ML Syringe IV (19:58)
[2022-10-10] MEDS: Sertraline 50 MG Tablet 25 MG PO (21:50)
[2022-10-11] VITALS (8 sets, daily range): BP systolic 117–134; BP diastolic 67–79; PULSE 86–98; RESP 16–18; TEMP 36.4–37.1; O2SAT 84–94
[2022-10-11] MEDS: Cholestyramine/Sucrose 4 GM/PACKET PO (06:05)
[2022-10-11] MEDS: traMADol 50 MG Tablet PO ×3 (06:10→18:06)
[2022-10-11 07:00] LABS: ALB/GLOB Ratio 0.8 RATIO (0.9-2.4); AST(SGOT) 54 U/L (15-37); Alanine Aminotransfer ALT/SGPT 113 U/L (13-56); Albumin, Serum 2.6 g/dL (3.2-5.0); Alkaline Phosphatase 359 U/L (45-117); Anion Gap 7 (5-15); BUN 35 mg/dL (7-18); BUN/Creat Ratio 20.6 RATIO (10-20); Calcium,Total 8.4 mg/dL (8.5-10.1); Chloride 109 mmol/L (98-107); EST Glomerular Filtration Rate 32 mL/min (>60); Est Glom Filt Rate - Afr Amer 39 mL/min (>60); Estimated Creatinine Clearance 30.47 ml/min; Globulin 3.4 g/dL (2.2-4.2); Glucose 132 mg/dL (74-106); Potassium 4.5 mmol/L (3.5-5.1); Sodium Level 137 mmol/L (136-145)
[2022-10-11] MEDS: Ursodiol 250 MG Tablet 500 MG PO ×2 (08:24→21:38)
[2022-10-11] MEDS: Enoxaparin 100 MG/ML Syringe SC (08:24)
[2022-10-11] MEDS: Pantoprazole Sodium 40 MG Tablet PO (08:24)
[2022-10-11] MEDS: Metoprolol(XL)Succ 50 MG Tablet 25 MG PO (08:28)
[2022-10-11] MEDS: Senna/Docusate Sodium 1 Tablet 2 TABLET PO (08:28)
--- NOTE | 2022-10-11 10:08 | EX.PCM.PN.GI ---
Subjective Subjective Patient is still having abdominal pain. She rates her pain at about a 6 or 7 out of 10. She also has nausea and some bloating. She has not been able to eat much. She has not had a bowel movement. Objective Data Objective Data Vital Signs: Vital Signs Temp Pulse Resp BP Pulse Ox O2 Del Method O2 Flow Rate 97.8 F 98 18 134/79 H 93 Nasal Cannula 3 10/11/22 08:19 10/11/22 08:28 10/11/22 08:19 10/11/22 08:19 10/11/22 08:19 10/11/22 08:19 10/11/22 08:19 Oxygen Flow Rate (L/min) [At 94 REST with Oxygen] Oxygen Flow Rate (L/min) [ 91 AMBULATING with Oxygen #1] Oxygen Flow Rate (L/min) 3 Oxygen Delivery Method Nasal Cannula Weight: 218 lb 11.177 oz Body Mass Index (BMI) 35.3 Intake & Output: Intake and Output for Last 24 Hours 10/09/22 10/10/22 10/11/22 23:59 23:59 23:59 Intake Total 2311.25 / 2311.25 2639.58 / 2639.58 545.83 / 545.83 Output Total 800 / 800 150 / 150 Balance 2311.25 / 2311.25 1839.58 / 1839.58 395.83 / 395.83 Lab / Micro Data 10/10/22 05:00 10/11/22 05:19 Labs: Laboratory Results - last 24 hr 10/10/22 15:35: Ammonia < 10.0 L 10/11/22 05:19: Sodium 137, Potassium 4.5, Chloride 109 H, Carbon Dioxide 21.0, Anion Gap 7, BUN 35 H, Creatinine 1.70 H, Estim Creat Clear Calc 30.47, Est GFR (MDRD) Af Amer 39 L, Est GFR (MDRD) Non-Af 32 L, BUN/Creatinine Ratio 20.6 H, Glucose 132 H, Calcium 8.4 L, Total Bilirubin 3.60 H, AST 54 H, ALT 113 H, Alkaline Phosphatase 359 H, Total Protein 6.0 L, Albumin 2.6 L, Globulin 3.4, Albumin/Globulin Ratio 0.8 L Physical Exam Narrative Seen and examined. Patient and daughter, Rozina present in the room. Patient having abdominal pain mainly epigastric and right upper quadrant. This started after the procedure about 10 PM. She rates her pain 10/10 intensity, constant with nausea and mild vomiting. No fever. Physical exam General: Alert, Oriented x3, Cooperative HEENT: Deep yellow icterus. Atraumatic, PERRLA, EOMI, Normocephalic Oral: Oral mucosa moist. No Gingival or Mucosal Lesions/ Ulcerations Neck: Supple, No JVD, Negative Carotid Bruits Lungs: Air entry diminished in bilateral lung bases. No crepitation/rhonchi Cardiovascular: Regular rate, Regular Rhythm, Normal S1, Normal S2, No murmurs Abdomen: Very tender right upper quadrant and epigastrium. Nondistended. Bowel Sounds Present, Soft, : No renal angle tenderness. No suprapubic tenderness. Extremities: No edema, Capillary Refill Less than 3 Seconds Skin: Scratch mac over lower legs. Skin yellowish color Musculoskeletal: No Tenderness to Palpation of Joints or Extremities. Right TKR. ROM full. Neurological: Cranial nerves II-XII grossly intact, DTR 2+/4 and Symmetrical, Neuro grossly intact Psych/Mental Status: Normal Affect, Appropriate. Assessment & Plan Assessment/Plan (1) Jaundice: (2) Bilirubinemia: (3) Transaminitis: (4) Liver mass: PLAN: Plan 67-year-old with past medical history of nicotine addiction with recent chest pain and possible aortic aneurysm. That was ruled out along with coronary artery disease at [facility] last week. She is in today with worsening abdominal pain and discovered to be jaundice. Her bilirubin is up to 5. She had mild elevation of her lipase at 87. 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 She will need to undergo ERCP with spyglass and biopsies. She will also need decompression of the remy hepatis. She was explained alternatives, risk and benefits including outstanding bleeding, infection, sepsis, perforation, need for return to . She will have an ASA of 3. 10/09: Continue to hold Lovenox. Plan is for ERCP today 10/11: Her LFTs are improving. Agree with transitioning narcotics to nonsteroidals. I would watch her acute kidney injury. Agree with continued antiemetics. Her CA 19-9 is elevated. That is consistent with cholangiocarcinoma. I will order a CEA. Her P ANCA is within normal limits. Therefore I do not think this came from primary sclerosing cholangitis. CRP and CEA will biochemically help to determine severity. However we already know that she has metastatic disease by previous imaging. She is yet to be seen by oncology. I do not know if they will want lung biopsy, PET scan or any other imaging modalities. She will need a repeat ERCP with possible radiofrequency ablation in the future. Charges/Coding Visit Charges Inpatient E&M: 40975 Subs Hosp L3
[2022-10-11] MEDS: Polyethylene Glycol 3350 17 GM PACKET PO (10:25)
[2022-10-11] MEDS: 0.9% Normal Saline 1,000 ML 75 ML IV (10:28)
--- NOTE | 2022-10-11 10:39 | PCM.PN.HOSP ---
Reason for Visit Reason for Visit: Diagnoses Other disorders of bilirubin metabolism (10/08/22) Hepatomegaly, not elsewhere classified (10/08/22) Unspecified jaundice (10/08/22) Elevation of levels of liver transaminase levels (10/08/22) Subjective Subjective Follow-up for liver mass most probably metastatic cholangiocarcinoma Objective Data Objective Data Vital Signs: Vital Signs Temp Pulse Resp BP Pulse Ox O2 Del Method O2 Flow Rate 97.8 F 98 18 134/79 H 90 Nasal Cannula 4 10/11/22 08:19 10/11/22 08:28 10/11/22 08:19 10/11/22 08:19 10/11/22 10:29 10/11/22 08:19 10/11/22 10:29 Oxygen Flow Rate (L/min) [At 4 REST with Oxygen] Oxygen Flow Rate (L/min) [ 4 AMBULATING with Oxygen #1] Oxygen Flow Rate (L/min) 3 Oxygen Delivery Method Nasal Cannula Weight: 218 lb 11.177 oz Body Mass Index (BMI) 35.3 Intake & Output: Intake and Output for Last 24 Hours 10/09/22 10/10/22 10/11/22 23:59 23:59 23:59 Intake Total 2311.25 / 2311.25 2639.58 / 2639.58 595.83 / 595.83 Output Total 800 / 800 150 / 150 Balance 2311.25 / 2311.25 1839.58 / 1839.58 445.83 / 445.83 Lab / Micro Data 10/10/22 05:00 10/11/22 05:19 Labs: Laboratory Results - last 24 hr 10/10/22 15:35: Ammonia < 10.0 L 10/11/22 05:19: Sodium 137, Potassium 4.5, Chloride 109 H, Carbon Dioxide 21.0, Anion Gap 7, BUN 35 H, Creatinine 1.70 H, Estim Creat Clear Calc 30.47, Est GFR (MDRD) Af Amer 39 L, Est GFR (MDRD) Non-Af 32 L, BUN/Creatinine Ratio 20.6 H, Glucose 132 H, Calcium 8.4 L, Total Bilirubin 3.60 H, AST 54 H, ALT 113 H, Alkaline Phosphatase 359 H, Total Protein 6.0 L, Albumin 2.6 L, Globulin 3.4, Albumin/Globulin Ratio 0.8 L Physical Exam Narrative Seen and examined. Patient's and daughter, Rozina present in the room. Friend also present in the room. Abdominal pain is better but he still has 6-7/10 intensity. Patient did not move bowel for 2 days feels dyspeptic symptoms, bloating gas. This started after the procedure about 10 PM. Vomiting has resolved. No fever. Physical exam General: Alert, Oriented x3, Cooperative HEENT: Greenish yellow icterus. Atraumatic, PERRLA, EOMI, Normocephalic Oral: Oral mucosa moist. No Gingival or Mucosal Lesions/ Ulcerations Neck: Supple, No JVD, Negative Carotid Bruits Lungs: Air entry diminished in bilateral lung bases. No crepitation/rhonchi Cardiovascular: Regular rate, Regular Rhythm, Normal S1, Normal S2, No murmurs Abdomen: Mild tenderness over right upper quadrant and epigastrium. Nondistended. Bowel Sounds sluggish, Soft, : No renal angle tenderness. No suprapubic tenderness. Extremities: No edema, Capillary Refill Less than 3 Seconds Skin: Scratch mac over lower legs. Skin yellowish color Musculoskeletal: No Tenderness to Palpation of Joints or Extremities. Right TKR. ROM full. Neurological: Cranial nerves II-XII grossly intact, DTR 2+/4 and Symmetrical, Neuro grossly intact Psych/Mental Status: Flat affect. Assessment & Plan Assessment/Plan (1) Liver mass: PLAN: Plan This 67-year-old female is being admitted for new onset jaundice and right upper quadrant abdominal pain found to have liver mass on CT abdomen. 1. Liver irregular 4.3 cm mass central hilar and location, cause for obstructive jaundice, suspicion for cholangiocarcinoma: It shows infiltrative, irregular mass about 4.3 cm around the hilum of liver with peripheral biliary dilatation. As reported right portal vein patent left portal vein not seen but with collateral vessels. Mild compression of main portal vein. Patient is being admitted in [facility] floor. MRCP ordered. There is compression of the main portal vein with elevation in total bilirubin, alkaline phosphatase and transaminases. IV Zosyn ordered. MRCP ordered. Lovenox 1 mg/kg body weight every 12 hourly. Further plan for EGD and MRCP. Monitor liver chemistry daily. 10/10: ERCP on 10/09 shows biliary tumor at bifurcation of right and left hepatic ducts. Biliary tract obstruction secondary to mass and bifurcation of right and left hepatic ducts. Multiple severe biliary strictures, malignant appearing. CHD severely dilated secondary to stricture. Common hepatic duct and left main hepatic duct was successfully dilated. Cells for cytology and biopsy was performed at hepatic duct bifurcation. Oncologist was consulted yesterday but her oncologist Dr. Keenan is out of town for 3 weeks. After discharge patient can call on Wednesday for outpatient appointment or if she is stays inpatient can see Dr. Stokes No fever, leukocytosis went up after ERCP. Patient having severe abdominal pain most likely related to ERCP procedure because of air insufflation, stretching. Leukocytosis most likely inflammatory but patient is covered with antibiotic as chances of cholangitis is high. On IV Dilaudid, Reglan as prokinetic agent. Discussed with patient's and daughter near the bedside. 10/11: Patient is still has abdominal pain. She has dyspeptic symptoms and did not move bowel for 2 days. Discontinue cholestyramine but continue Reglan. Liver chemistry shows improvement in total bilirubin, AST ALT and alkaline phosphatase. C-ANCA and P-ANCA antibody normal. Autoimmune work-up negative so far. CA 19-9 high 162. AFP and CEA are negative. CT abdomen, MRCP ERCP, tumor marker CA 19-9 and lung nodules all suggestive of metastatic cholangiocarcinoma. Her home companion Dr. Guerrero is out of town for 3 weeks. She can follow-up with Dr. Escoto on Wednesday. Further work-up and management like PET scan as per oncologist. Discussed with Dr. Silvestre, family members. EVELIA:Most likely prerenal her creatinine jumped up from 0.93-1.7. She denies any significant change in the urine output. IV fluid normal saline 75 mill per hour for 2 L. Monitor kidney function tomorrow AM. No NSAIDs or other nephrotoxic medications. 2. CAD, two-vessel disease: She had work-up in [facility] in July 2022. Patient currently on baby aspirin and beta-justo. Medications continued. Try to obtain medical record from [facility]. 3. GERD on PPI: Continue PPI. 4. Left upper lobe pulmonary nodule: CT abdomen and pelvis showed multiple bilateral lung base pulmonary nodules, largest right anteriorly 1.[address] Guerrero and he mentioned left upper lobe nodule and advised to repeat CT chest in 3 months in clinic visit on August 2022 5. Dyslipidemia degenerative osteoarthritis, History of right TKR and morbid obesity: Her BMI is 35.3 kg/m?: Hold atorvastatin in view of increased total bilirubin and liver chemistry. DVT prophylaxis, high risk with compression of main portal vein: On therapeutic dose of Lovenox as mentioned above. Living will/advanced directive/end of life care: Patient does have living will or advanced directive. Her is power of county attorney for health. Her daughter is charge nurse on [facility] 3. After discussion of benefits/risks procedures involved with full code, DNR CC arrest and DNR CC, the patient opted for full code. Patient does want artificial life support including intubation, tube feed, ventilator and/chest compression, central venous catheter, vasopressor and DC shock if needed Charges/Coding Addendum Addendum: Total time of the visit including total time spent in counseling or coordination of care, (more than 50% of the total time, spent in obtaining medical information from nurses and other ancillary care providers,explaining to the patient about labs, imaging, diagnosis and management of active complex medical conditions), discussion with the family members regarding diagnosis, diagnostic work-up, imaging studies probable cholangiocarcinoma's work-up and prognosis, review of labs and imaging is 50 minutes Visit Charges Inpatient E&M: 44631 Subs Hosp L3
[2022-10-11 11:24] LABS: Absolute Lymphocyte Count 0.83 X10^3/uL (0.83-4.51); Absolute Neutrophil Count 32.7 X10^3/uL (2.0-7.7); Basophil% 0.3 % (0-1); Hematocrit 43.2 % (37-47); Hemoglobin 14.5 g/dL (12.0-15.0); Lymphocyte # 0.83 X10^3/ul (0.83-4.51); Lymphocyte % 2.1 % (19-41); Mean Corp Hgb Conc 33.6 g/dL (32-36); Mean Corpuscular Hgb 30.5 pg (27.0-32.0); Mean Corpuscular Volume 90.8 fL (81-99); Mean Platelet Vol. 14.3 fl (6.2-12.0); Monocyte# 5.04 X10^3/uL; Monocyte% 12.7 % (0-10); NRBC Flagged by Analyzer 0 % (0-5); Neutrophil # 32.71 X10^3/uL (2.7-7.7); Neutrophil % 82.5 % (47-70); POSITIVE COUNT YES; POSITIVE DIFFERENTIAL YES; Platelet Count 158 K/mm3 (150-450); RBC Distribution Width CV 16.5 % (11.6-14.6); RBC Distribution Width SD 55.1 fl (35.1-43.9); Red Blood Count 4.76 M/mm3 (4.2-5.4); White Blood Count 39.7 K/mm3 (4.4-11.0)
[2022-10-11 11:27] LABS: Differential Indicated SCAN CRITERIA MET
[2022-10-11 12:58] LABS: Lactic Acid 1.9 mmol/L (0.4-1.9)
[2022-10-11] MEDS: Acetaminophen 325 MG Tablet 650 MG PO (16:55)
[2022-10-11] MEDS: 0.9% Normal Saline 1,000 ML 100 ML IV (20:52)
[2022-10-11] MEDS: Sertraline 50 MG Tablet 25 MG PO (21:38)
[2022-10-12] VITALS (15 sets, daily range): BP systolic 113–150; BP diastolic 68–90; PULSE 74–100; RESP 16–18; TEMP 36.6–37.2; O2SAT 88–95
[2022-10-12] MEDS: traMADol 50 MG Tablet PO ×3 (05:59→20:56)
[2022-10-12] MEDS: 0.9% Saline Lock 10 ML Syringe IV ×3 (05:59→18:25)
[2022-10-12 06:12] LABS: Absolute Lymphocyte Count 0.85 X10^3/uL (0.83-4.51); Absolute Neutrophil Count 24.4 X10^3/uL (2.0-7.7); Basophil# 0.11 X10^3/uL; Basophil% 0.4 % (0-1); Eosinophil# 0.01 X10^3/uL; Hematocrit 39.3 % (37-47); Hemoglobin 12.9 g/dL (12.0-15.0); Lymphocyte # 0.85 X10^3/ul (0.83-4.51); Lymphocyte % 2.8 % (19-41); Mean Corp Hgb Conc 32.8 g/dL (32-36); Mean Corpuscular Hgb 29.7 pg (27.0-32.0); Mean Corpuscular Volume 90.6 fL (81-99); Mean Platelet Vol. 14.3 fl (6.2-12.0); Monocyte# 4.31 X10^3/uL; Monocyte% 14.3 % (0-10); NRBC Flagged by Analyzer 0 % (0-5); Neutrophil # 24.37 X10^3/uL (2.7-7.7); Neutrophil % 80.7 % (47-70); POSITIVE COUNT YES; POSITIVE DIFFERENTIAL YES; Platelet Count 129 K/mm3 (150-450); RBC Distribution Width CV 16.5 % (11.6-14.6); RBC Distribution Width SD 55.5 fl (35.1-43.9); Red Blood Count 4.34 M/mm3 (4.2-5.4)
[2022-10-12 06:15] LABS: Differential Indicated SCAN CRITERIA MET; White Blood Count 30.2 K/mm3 (4.4-11.0)
[2022-10-12 06:41] LABS: ALB/GLOB Ratio 0.6 RATIO (0.9-2.4); AST(SGOT) 55 U/L (15-37); Alanine Aminotransfer ALT/SGPT 74 U/L (13-56); Albumin, Serum 2.2 g/dL (3.2-5.0); Alkaline Phosphatase 250 U/L (45-117); Anion Gap 5 (5-15); BUN 42 mg/dL (7-18); BUN/Creat Ratio 23.5 RATIO (10-20); Calcium,Total 8.5 mg/dL (8.5-10.1); Chloride 111 mmol/L (98-107); Creatinine, Serum 1.79 mg/dL (0.55-1.02); EST Glomerular Filtration Rate 30 mL/min (>60); Est Glom Filt Rate - Afr Amer 36 mL/min (>60); Estimated Creatinine Clearance 28.94 ml/min; Globulin 3.5 g/dL (2.2-4.2); Glucose 115 mg/dL (74-106); Potassium 4.3 mmol/L (3.5-5.1); Protein, Total 5.7 g/dL (6.4-8.2); Sodium Level 138 mmol/L (136-145)
[2022-10-12 06:50] LABS: Differential Comment SCANNED
[2022-10-12 06:53] LABS: Amylase 190 U/L (25-115); Lipase 155 U/L (13-75)
--- NOTE | 2022-10-12 07:12 | PN.HOSP_ITS ---
Reason for Visit Reason for Visit: Diagnoses Other disorders of bilirubin metabolism (10/08/22) Hepatomegaly, not elsewhere classified (10/08/22) Unspecified jaundice (10/08/22) Elevation of levels of liver transaminase levels (10/08/22) Subjective Subjective Still with abdominal pain. Objective Data Objective Data Vital Signs: Vital Signs Temp Pulse Resp BP Pulse Ox O2 Del Method O2 Flow Rate 36.8 C 83 16 122/77 H 88 Nasal Cannula 2 10/12/22 02:00 10/12/22 02:00 10/12/22 02:00 10/12/22 02:00 10/12/22 05:46 10/12/22 02:00 10/12/22 05:46 Oxygen Flow Rate (L/min) [ 3 AMBULATING with Oxygen #2] Oxygen Flow Rate (L/min) [At 0 REST on Room Air] Oxygen Flow Rate (L/min) [At 2 REST with Oxygen] Oxygen Flow Rate (L/min) [ 2 AMBULATING with Oxygen #1] Oxygen Flow Rate (L/min) 3 Oxygen Delivery Method Nasal Cannula Weight: 99.2 kg Body Mass Index (BMI) 35.3 Intake & Output: Intake and Output for Last 24 Hours 10/10/22 10/11/22 10/12/22 23:59 23:59 23:59 Intake Total 2639.58 / 2639.58 1645.83 / 1645.83 50 / 50 Output Total 800 / 800 650 / 650 Balance 1839.58 / 1839.58 995.83 / 995.83 50 / 50 Lab / Micro Data 10/12/22 11:35 10/12/22 05:19 Labs: Laboratory Results - last 24 hr 10/11/22 11:08: WBC 39.7 H*, RBC 4.76, Hgb 14.5, Hct 43.2, MCV 90.8, MCH 30.5, MCHC 33.6, RDW Std Deviation 55.1 H, RDW Coeff of Gisella 16.5 H, Plt Count 158, MPV 14.3 H, Immature Gran % (Auto) 2.400 H, Neut % (Auto) 82.5 H, Lymph % (Auto) 2.1 L, [place] % (Auto) 12.7 H, Eos % (Auto) 0.0, Baso % (Auto) 0.3, Absolute Neuts (auto) 32.7 H, Absolute Lymphs (auto) 0.83, Nucleated RBC % 0, Diff Path Review July foll 10/11/22 12:03: Lactic Acid 1.9 10/12/22 05:19: WBC 30.2 H*, RBC 4.34, Hgb 12.9, Hct 39.3, MCV 90.6, MCH 29.7, MCHC 32.8, RDW Std Deviation 55.5 H, RDW Coeff of Gisella 16.5 H, Plt Count 129 L, MPV 14.3 H, Immature Gran % (Auto) 1.800 H, Neut % (Auto) 80.7 H, Lymph % (Auto) 2.8 L, [place] % (Auto) 14.3 H, Eos % (Auto) 0.0, Baso % (Auto) 0.4, Absolute Neuts (auto) 24.4 H, Absolute Lymphs (auto) 0.85, Nucleated RBC % 0, Differential Comment SCANNED, Diff Path Review July, Sodium 138, Potassium 4.3, Chloride 111 H, Carbon Dioxide 22.0, Anion Gap 5, BUN 42 H, Creatinine 1.79 H, Estim Creat Clear Calc 28.94, Est GFR (MDRD) Af Amer 36 L, Est GFR (MDRD) Non-Af 30 L, BUN/Creatinine Ratio 23.5 H, Glucose 115 H, Calcium 8.5, Total Bilirubin 4.10 H, AST 55 H, ALT 74 H, Alkaline Phosphatase 250 H, Total Protein 5.7 L, Albumin 2.2 L, Globulin 3.5, Albumin/Globulin Ratio 0.6 L, Amylase 190 H, Lipase 155 H Physical Exam Const alert and no apparent distress Eyes Eyes Narrative: icterus. Resp normal respiratory effort, no retractions, no use of accessory muscles and clear to auscultation bilaterally Cardio regular rate, regular rhythm, S1 normal heart sound and S2 normal heart sound GI normal to inspection, nondistended, normoactive bowel sounds, soft to palpation, non-tender and non-distended Extremity normal to inspection Neuro moves all extremities Assessment & Plan Assessment/Plan (1) Liver mass: PLAN: Data: * Outpt CT .3 cm mass central hilar and location, cause for obstructive jaundice, suspicion for cholangiocarcinoma: It shows infiltrative, irregular mass about 4.3 cm around the hilum of liver with peripheral biliary dila tation. As reported right portal vein patent left portal vein not seen but with collateral vessels. Mild compression of main portal vein. * MRCP 10/08: 3.3 cm ill-defined mass in segment 2/4 B of the liver consistent with known cholangiocarcinoma. There is associated moderate obstruction of the intrahepatic biliary ducts. No evidence of metastatic disease in the abdomen. * ERCP 10/10: ERCP on 10/09 shows biliary tumor at bifurcation of right and left hepatic ducts. Biliary tract obstruction secondary to mass and bifurcation of right and left hepatic ducts. Multiple severe biliary strictures, malignant appearing. CHD severely dilated secondary to stricture. Common hepatic duct and left main hepatic duct was successfully dilated. Cells for cytology and biopsy was performed at hepatic duct bifurcation. * CA 19-9 elevated (462), concerning for cholangiocarcinoma. CEA WNL (2.8), AFP 4.1 Pt still had abdominal pain on 10/11. DW Dr. Stokes. No plans for treatment until biopsy and bilirubin goes down. Biopsy pending. (2) EVELIA (acute kidney injury): PLAN: Creatinine jumped from 0.93 to 1.7, today is 1.79. On IVF (3) Leukocytosis: QUALIFIERS: Leukocytosis type: unspecified Qualified Code(s): D72.829 - Elevated white blood cell count, unspecified PLAN: unclear significance on pip/tazo PLAN: Plan Chronic conditions: * CAD, two-vessel disease: She had work-up in [facility] in July 2022. Patient currently on baby aspirin and beta-justo. Medications continued. Try to obtain medical record from [facility]. * GERD on PPI: Continue PPI. * Left upper lobe pulmonary nodule: CT abdomen and pelvis showed multiple bilateral lung base pulmonary nodules, largest right anteriorly 1.[address] Guerrero and he mentioned left upper lobe nodule and advised to repeat CT chest in 3 months in clinic visit on August 2022 * Dyslipidemia degenerative osteoarthritis, History of right TKR and morbid obesity: Her BMI is 35.3 kg/m?: Hold atorvastatin in view of increased total bilirubin and liver chemistry. DVT prophylaxis, high risk with compression of main portal vein: On therapeutic dose of Lovenox as mentioned above. DW family at bedside. Charges/Coding Visit Charges Inpatient E&M: 75925 Subs Hosp L2
[2022-10-12] MEDS: Acetaminophen 325 MG Tablet 650 MG PO ×2 (08:46→18:25)
[2022-10-12] MEDS: 0.9% Normal Saline 1,000 ML 250 ML IV ×5 (08:46→23:17)
[2022-10-12 11:15] LABS: Erythrocyte Sedimentation Rate 54 mm/hr (0-30)
[2022-10-12 11:45] LABS: Basophil# 0.12 X10^3/uL; Basophil% 0.4 % (0-1); Eosinophil# 0.01 X10^3/uL; Hematocrit 37.7 % (37-47); Hemoglobin 12.3 g/dL (12.0-15.0); Lymphocyte % 2.6 % (19-41); Mean Corp Hgb Conc 32.6 g/dL (32-36); Mean Corpuscular Hgb 29.4 pg (27.0-32.0); Mean Platelet Vol. 14.3 fl (6.2-12.0); Monocyte# 3.99 X10^3/uL; Monocyte% 13.1 % (0-10); NRBC Flagged by Analyzer 0 % (0-5); Neutrophil # 24.98 X10^3/uL (2.7-7.7); Neutrophil % 82.3 % (47-70); POSITIVE COUNT YES; POSITIVE DIFFERENTIAL YES; Platelet Count 131 K/mm3 (150-450); RBC Distribution Width CV 16.5 % (11.6-14.6); RBC Distribution Width SD 53.8 fl (35.1-43.9); Red Blood Count 4.19 M/mm3 (4.2-5.4)
[2022-10-12 11:49] LABS: Differential Indicated SCAN CRITERIA MET; White Blood Count 30.4 K/mm3 (4.4-11.0)
--- NOTE | 2022-10-12 12:00 | CASEMGMT ---
Social Work SW spoke w/pt briefly to offer support. SW remains available for support to pt and family. RUBEN Chaparro
[2022-10-12 12:05] LABS: Differential Comment SCANNED
--- NOTE | 2022-10-12 12:07 | RAD_ITS ---
STUDY: X-RAY CHEST REASON FOR EXAM: Female, 67 years old. Leukocytosis. History of obstructive cholangiocarcinoma. TECHNIQUE: PA and lateral views of the chest. COMPARISON: Comparison is made with prior study dated October 09, 2022. FINDINGS: Since prior study, there is evidence of bibasilar atelectasis and/or infiltrates with blunting of both costophrenic angles. Normal size heart. Normal mediastinum and nancy. Normal visualized pulmonary arteries. Normal visualized aortic arch and descending thoracic aorta. There are diffuse degenerative changes of the visualized thoracic spine. Normal visualized ribs, clavicles, and shoulders. A biliary stent is seen within the common bile duct. RAD/Chest PA and Lateral IMPRESSION: New bibasilar atelectasis and/or infiltrates as compared to prior study. Blunting of both costophrenic angles. Electronically Signed: Dayton Maldonado MD at 12:51 EDT ,
[2022-10-12] MEDS: Enoxaparin 100 MG/ML Syringe SC (13:24)
[2022-10-12] MEDS: Metoprolol(XL)Succ 50 MG Tablet 25 MG PO (13:25)
[2022-10-12] MEDS: Ursodiol 250 MG Tablet 500 MG PO ×2 (13:25→20:52)
[2022-10-12] MEDS: Pantoprazole Sodium 40 MG Tablet PO (13:25)
--- NOTE | 2022-10-12 13:34 | CASEMGMT ---
Social Work SW assisted pt in completing LW/POA last week, copies on chart. RUBEN Chaparro
--- NOTE | 2022-10-12 15:38 | CHAPLAIN ---
Type of Pastoral Visit ___ Initial Visit ___ Follow-up Visit ___ On-call Visit ___ General Patient Visit ___ Spiritual Assessment _x__ Family Conference ___ Bereavement ___ Rapid Response ___ Code Blue ___ Other (describe below) Pastoral Care Referral From ___ Patient _x__ Family ___ Nurse ___ Physician ___ Air And Water Filler ___ Development Planner ___ Other (describe below) Sacrament/Intervention _x__ Active listening ___ Anointing ___ Adventist ___ Bereavement ___ Communion ___ Harriet exploration ___ ___ Life review ___ Prayer ___ Reconciliation ___ Sacrament of Sick _x__ Supportive presence ___ Wedding ___ Other (describe below) Pastoral Comments patient has visitors in her room; daughters are in waiting area and conversation with supportive listening is given to family; daughters are able to express situation, thoughts, and feelings about mother/patient; concern is for patient's depressing feelings and wanting to be quiet which is different than her normal self; family has appropriate understanding but admit that they all need to have some answers and a plan for the future; having answers and a plan would be the goal of need right now; offer of ongoing support is given
[2022-10-12 15:47] LABS: Pathologist Review Reviewed
[2022-10-12 15:48] LABS: Pathologist Review Reviewed
[2022-10-12] MEDS: Ondansetron 4 MG/2 ML Vial IV (17:23)
--- NOTE | 2022-10-12 17:59 | PN.GI_ITS ---
Subjective Subjective patient has been up and moving around. She is still requiring oxygen. She had a chest x-ray that showed bilateral airspace disease. Objective Data Objective Data Vital Signs: Vital Signs Temp Pulse Resp BP Pulse Ox O2 Del Method O2 Flow Rate 98.7 F 91 18 150/90 H 95 Nasal Cannula 3 10/12/22 16:50 10/12/22 16:50 10/12/22 16:51 10/12/22 16:50 10/12/22 16:50 10/12/22 16:51 10/12/22 16:51 Oxygen Flow Rate (L/min) [ 3 AMBULATING with Oxygen #2] Oxygen Flow Rate (L/min) [At 0 REST on Room Air] Oxygen Flow Rate (L/min) [At 2 REST with Oxygen] Oxygen Flow Rate (L/min) [ 2 AMBULATING with Oxygen #1] Oxygen Flow Rate (L/min) 3 Oxygen Delivery Method Nasal Cannula Weight: 218 lb 11.177 oz Body Mass Index (BMI) 35.3 Intake & Output: Intake and Output for Last 24 Hours 10/10/22 10/11/22 10/12/22 23:59 23:59 23:59 Intake Total 2639.58 / 2639.58 1645.83 / 1645.83 3697.5 / 3697.5 Output Total 800 / 800 650 / 650 500 / 500 Balance 1839.58 / 1839.58 995.83 / 995.83 3197.5 / 3197.5 Lab / Micro Data 10/12/22 11:35 10/12/22 05:19 Labs: Laboratory Results - last 24 hr 10/11/22 11:08: Diff Path Review Reviewed 10/12/22 05:19: WBC 30.2 H*, RBC 4.34, Hgb 12.9, Hct 39.3, MCV 90.6, MCH 29.7, MCHC 32.8, RDW Std Deviation 55.5 H, RDW Coeff of Gisella 16.5 H, Plt Count 129 L, MPV 14.3 H, Immature Gran % (Auto) 1.800 H, Neut % (Auto) 80.7 H, Lymph % (Auto) 2.8 L, [place] % (Auto) 14.3 H, Eos % (Auto) 0.0, Baso % (Auto) 0.4, Absolute Neuts (auto) 24.4 H, Absolute Lymphs (auto) 0.85, Nucleated RBC % 0, Differential Comment SCANNED, Diff Path Review Reviewed, ESR 54 H, Sodium 138, Potassium 4.3, Chloride 111 H, Carbon Dioxide 22.0, Anion Gap 5, BUN 42 H, Creatinine 1.79 H, Estim Creat Clear Calc 28.94, Est GFR (MDRD) Af Amer 36 L, Est GFR (MDRD) Non-Af 30 L, BUN/Creatinine Ratio 23.5 H, Glucose 115 H, Calcium 8.5, Total Bilirubin 4.10 H, AST 55 H, ALT 74 H, Alkaline Phosphatase 250 H, C-React Prot Ext Range 195.00 H, Total Protein 5.7 L, Albumin 2.2 L, Globulin 3.5, Albumin/Globulin Ratio 0.6 L, Amylase 190 H, Lipase 155 H 10/12/22 11:35: WBC 30.4 H*, RBC 4.19 L, Hgb 12.3, Hct 37.7, MCV 90.0, MCH 29.4, MCHC 32.6, RDW Std Deviation 53.8 H, RDW Coeff of Gisella 16.5 H, Plt Count 131 L, MPV 14.3 H, Immature Gran % (Auto) 1.600 H, Neut % (Auto) 82.3 H, Lymph % (Auto) 2.6 L, [place] % (Auto) 13.1 H, Eos % (Auto) 0.0, Baso % (Auto) 0.4, Absolute Neuts (auto) 25.0 H, Absolute Lymphs (auto) 0.80 L, Nucleated RBC % 0, Differential Comment SCANNED, Diff Path Review May foll Micro: Microbiology 10/10/22 14:55 Blood Culture (Wb) - Right Hand Blood Culture - Preliminary No growth in 48 hours. 10/10/22 15:00 Blood Culture (Wb) - Anticubital Right Blood Culture - Preliminary No growth in 48 hours. Radiography Diagnostic Testing: Radiology Impression Chest X-Ray 10/12/22 12:07 IMPRESSION: New bibasilar atelectasis and/or infiltrates as compared to prior study. Blunting of both costophrenic angles. Electronically Signed: Dayton Maldonado MD at 12:51 EDT , Physical Exam Const alert and no apparent distress Eyes Eyes Narrative: icterus. Resp normal respiratory effort, no retractions, no use of accessory muscles and clear to auscultation bilaterally Cardio regular rate, regular rhythm, S1 normal heart sound and S2 normal heart sound GI normal to inspection, nondistended, normoactive bowel sounds, soft to palpation, non-tender and non-distended Extremity normal to inspection Neuro moves all extremities Assessment & Plan Assessment/Plan (1) Jaundice: (2) Bilirubinemia: (3) Transaminitis: (4) Liver mass: PLAN: Plan 67-year-old with past medical history of nicotine addiction with recent chest pain and possible aortic aneurysm. That was ruled out along with coronary artery disease at [facility] last week. She is in today with worsening abdominal pain and discovered to be jaundice. Her bilirubin is up to 5. She had mild elevation of her lipase at 87. 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 She will need to undergo ERCP with spyglass and biopsies. She will also need decompression of the remy hepatis. She was explained alternatives, risk and benefits including outstanding bleeding, infection, sepsis, perforation, need for return to . She will have an ASA of 3. 10/09: Continue to hold Lovenox. Plan is for ERCP today 10/11: Her LFTs are improving. Agree with transitioning narcotics to nonsteroidals. I would watch her acute kidney injury. Agree with continued antiemetics. Her CA 19-9 is elevated. That is consistent with cholangiocarcinoma. I will order a CEA. Her P ANCA is within normal limits. Therefore I do not think this came from primary sclerosing cholangitis. CRP and CEA will biochemically help to determine severity. However we already know that she has metastatic disease by previous imaging. She is yet to be seen by oncology. I do not know if they will want lung biopsy, PET scan or any other imaging modalities. She will need a repeat ERCP with possible radiofrequency ablation in the future. 10/12: Awaiting biopsies from ERCP. Her kidney function is likely elevated secondary to prerenal azotemia. I will put her on IV fluids. She had a small bowel movement yesterday. Chest x-ray shows bilateral airspace disease. I will put her on azithromycin. Awaiting blood cultures. I will check urine cultures. Continue Zosyn therapy as her white blood cell count is extremely high. I suspect this is secondary to reaction from mild pancreatitis by biochemical analysis. I cannot get a CT scan abdomen pelvis because her kidneys cannot tolerate it right now. Hopefully her kidney function will improve with IV fluids. Charges/Coding Visit Charges Inpatient E&M: 32675 Subs Hosp L3
[2022-10-12] MEDS: Metoclopramide 10 MG/2 ML Vial 5 MG IV ×2 (18:25→23:15)
[2022-10-12] MEDS: Docusate Sodium 100 MG Capsule PO (20:52)
[2022-10-12] MEDS: Sertraline 50 MG Tablet 25 MG PO (20:53)
[2022-10-12] MEDS: HYDROmorphone 1 MG/ML Syringe IV (23:15)
[2022-10-13] VITALS (10 sets, daily range): BP systolic 120–127; BP diastolic 70–77; PULSE 85–95; RESP 18; TEMP 36.6–37.1; O2SAT 92–95
[2022-10-13] MEDS: Metoclopramide 10 MG/2 ML Vial 5 MG IV ×4 (05:20→22:40)
[2022-10-13 05:37] LABS: Absolute Lymphocyte Count 0.91 X10^3/uL (0.83-4.51); Absolute Neutrophil Count 19.3 X10^3/uL (2.0-7.7); Basophil# 0.08 X10^3/uL; Basophil% 0.3 % (0-1); Eosinophil# 0.04 X10^3/uL; Eosinophils% 0.2 % (0-5); Hematocrit 33.2 % (37-47); Lymphocyte # 0.91 X10^3/ul (0.83-4.51); Lymphocyte % 3.7 % (19-41); Mean Corp Hgb Conc 33.1 g/dL (32-36); Mean Corpuscular Hgb 30.1 pg (27.0-32.0); Mean Corpuscular Volume 90.7 fL (81-99); Mean Platelet Vol. 14.3 fl (6.2-12.0); Monocyte# 3.88 X10^3/uL; Monocyte% 15.7 % (0-10); NRBC Flagged by Analyzer 0 % (0-5); Neutrophil # 19.31 X10^3/uL (2.7-7.7); POSITIVE DIFFERENTIAL YES; Platelet Count 150 K/mm3 (150-450); RBC Distribution Width SD 56.6 fl (35.1-43.9); Red Blood Count 3.66 M/mm3 (4.2-5.4); White Blood Count 24.7 K/mm3 (4.4-11.0)
[2022-10-13 05:40] LABS: Differential Indicated SCAN CRITERIA MET
[2022-10-13 06:01] LABS: ALB/GLOB Ratio 0.6 RATIO (0.9-2.4); AST(SGOT) 37 U/L (15-37); Alanine Aminotransfer ALT/SGPT 53 U/L (13-56); Alkaline Phosphatase 190 U/L (45-117); Anion Gap 3 (5-15); BUN 33 mg/dL (7-18); Calcium,Total 8.3 mg/dL (8.5-10.1); Chloride 115 mmol/L (98-107); Creatinine, Serum 1.32 mg/dL (0.55-1.02); EST Glomerular Filtration Rate 43 mL/min (>60); Est Glom Filt Rate - Afr Amer 52 mL/min (>60); Estimated Creatinine Clearance 39.25 ml/min; Globulin 3.5 g/dL (2.2-4.2); Glucose 116 mg/dL (74-106); Potassium 4.2 mmol/L (3.5-5.1); Protein, Total 5.5 g/dL (6.4-8.2); Sodium Level 140 mmol/L (136-145)
[2022-10-13 06:29] LABS: Differential Comment SCANNED
--- NOTE | 2022-10-13 07:09 | PN.HOSP_ITS ---
Reason for Visit Reason for Visit: Diagnoses Elevated white blood cell count, unspecified (10/08/22) Other disorders of bilirubin metabolism (10/08/22) Acute kidney failure, unspecified (10/08/22) Hepatomegaly, not elsewhere classified (10/08/22) Unspecified jaundice (10/08/22) Elevation of levels of liver transaminase levels (10/08/22) Subjective Subjective Complaining of RUQ abdominal pain. intermittent and crampy. Objective Data Objective Data Vital Signs: Vital Signs Temp Pulse Resp BP Pulse Ox O2 Del Method O2 Flow Rate 36.6 C 85 18 120/77 94 Nasal Cannula 3 10/13/22 05:25 10/13/22 05:25 10/13/22 05:25 10/13/22 05:25 10/13/22 05:25 10/13/22 05:25 10/13/22 05:25 Oxygen Flow Rate (L/min) [ 3 AMBULATING with Oxygen #2] Oxygen Flow Rate (L/min) [At 0 REST on Room Air] Oxygen Flow Rate (L/min) [At 2 REST with Oxygen] Oxygen Flow Rate (L/min) [ 2 AMBULATING with Oxygen #1] Oxygen Flow Rate (L/min) 3 Oxygen Delivery Method Nasal Cannula Weight: 99.2 kg Body Mass Index (BMI) 35.3 Intake & Output: Intake and Output for Last 24 Hours 10/11/22 10/12/22 10/13/22 23:59 23:59 23:59 Intake Total 1645.83 / 1645.83 5781.67 / 5781.67 250 / 250 Output Total 650 / 650 900 / 900 300 / 300 Balance 995.83 / 995.83 4881.67 / 4881.67 -50 / -50 Lab / Micro Data 10/13/22 05:09 10/13/22 05:09 Labs: Laboratory Results - last 24 hr 10/11/22 11:08: Diff Path Review Reviewed 10/12/22 05:19: Diff Path Review Reviewed, ESR 54 H, C-React Prot Ext Range 1 95.00 H 10/12/22 11:35: WBC 30.4 H*, RBC 4.19 L, Hgb 12.3, Hct 37.7, MCV 90.0, MCH 29.4, MCHC 32.6, RDW Std Deviation 53.8 H, RDW Coeff of Gisella 16.5 H, Plt Count 131 L, MPV 14.3 H, Immature Gran % (Auto) 1.600 H, Neut % (Auto) 82.3 H, Lymph % (Auto) 2.6 L, [place] % (Auto) 13.1 H, Eos % (Auto) 0.0, Baso % (Auto) 0.4, Absolute Neuts (auto) 25.0 H, Absolute Lymphs (auto) 0.80 L, Nucleated RBC % 0, Differential Comment SCANNED, Diff Path Review July foll 10/13/22 05:09: WBC 24.7 H, RBC 3.66 L, Hgb 11.0 L, Hct 33.2 L, MCV 90.7, MCH 30.1, MCHC 33.1, RDW Std Deviation 56.6 H, RDW Coeff of Gisella 17.0 H, Plt Count 150, MPV 14.3 H, Immature Gran % (Auto) 2.100 H, Neut % (Auto) 78.0 H, Lymph % (Auto) 3.7 L, [place] % (Auto) 15.7 H, Eos % (Auto) 0.2, Baso % (Auto) 0.3, Absolute Neuts (auto) 19.3 H, Absolute Lymphs (auto) 0.91, Nucleated RBC % 0, Differential Comment SCANNED, Diff Path Review July, Sodium 140, Potassium 4.2, Chloride 115 H, Carbon Dioxide 22.0, Anion Gap 3 L, BUN 33 H, Creatinine 1.32 H, Estim Creat Clear Calc 39.25, Est GFR (MDRD) Af Amer 52 L, Est GFR (MDRD) Non-Af 43 L, BUN/Creatinine Ratio 25.0 H, Glucose 116 H, Calcium 8.3 L, Total Bilirubin 2.50 H, AST 37, ALT 53, Alkaline Phosphatase 190 H, Total Prot ein 5.5 L, Albumin 2.0 L, Globulin 3.5, Albumin/Globulin Ratio 0.6 L Micro: Microbiology 10/12/22 19:55 Mucosa - Nasopharyngeal Rapid RSV (DFA) - Final 10/12/22 19:55 Nasal Secretion SARS-CoV-2 & FLU Antigen (Rapid) - Final 10/10/22 14:55 Blood Culture (Wb) - Right Hand Blood Culture - Preliminary No growth in 48 hours. 10/10/22 15:00 Blood Culture (Wb) - Anticubital Right Blood Culture - Preliminary No growth in 48 hours. Radiography Diagnostic Testing: Radiology Impression Chest X-Ray 10/12/22 12:07 IMPRESSION: New bibasilar atelectasis and/or infiltrates as compared to prior study. Blunting of both costophrenic angles. Electronically Signed: Dayton Maldonado MD at 12:51 EDT , Physical Exam Const alert and no apparent distress HEENT head/scalp atraumatic and moist oral mucous membranes Eyes Eyes Narrative: icterus. Resp normal respiratory effort, no retractions, no use of accessory muscles and clear to auscultation bilaterally Cardio regular rate, regular rhythm, S1 normal heart sound and S2 normal heart sound GI GI Narrative: RUQ abdominal pain. Extremity General Extremity: edema bilateral Skin Skin Narrative: jaundice. Assessment & Plan Assessment/Plan (1) Liver mass: PLAN: Data: * Outpt CT .3 cm mass central hilar and location, cause for obstructive ja undice, suspicion for cholangiocarcinoma: It shows infiltrative, irregular mass about 4.3 cm around the hilum of liver with peripheral biliary dilatation. As reported right portal vein patent left portal vein not seen but with collateral vessels. Mild compression of main portal vein. * MRCP 10/08: 3.3 cm ill-defined mass in segment 2/4 B of the liver consistent with known cholangiocarcinoma. There is associated moderate obstruction of the intrahepatic biliary ducts. No evidence of metastatic disease in the abdomen. * ERCP 10/10: ERCP on 10/09 shows biliary tumor at bifurcation of right and left hepatic ducts. Biliary tract obstruction secondary to mass and bifurcation of right and left hepatic ducts. Multiple severe biliary strictures, malignant appearing. CHD severely dilated secondary to stricture. Common hepatic duct and left main hepatic duct was successfully dilated. Cells for cytology and biopsy was performed at hepatic duct bifurcation. * CA 19-9 elevated (462), concerning for cholangiocarcinoma. CEA WNL (2.8), AFP 4.1 Pt still had abdominal pain on 10/11. DW Dr. Stokes. No plans for treatment until biopsy and bilirubin goes down. Hold off on consult. Follow up as outpt. Biopsy pending. (2) EVELIA (acute kidney injury): PLAN: Improving with IVF (3) Leukocytosis: QUALIFIERS: Leukocytosis type: unspecified Qualified Code(s): D72.829 - Elevated white blood cell count, unspecified PLAN: unclear significance on pip/tazo Blood cultures negative. Encouraged PEP PLAN: Plan Chronic conditions: * CAD, two-vessel disease: She had work-up in [facility] in July 2022. Patient currently on baby aspirin and beta-justo. Medications continued. Try to obtain medical record from [facility]. * GERD on PPI: Continue PPI. * Left upper lobe pulmonary nodule: CT abdomen and pelvis showed multiple bilateral lung base pulmonary nodules, largest right anteriorly 1.[address] Guerrero and he mentioned left upper lobe nodule and advised to repeat CT chest in 3 months in clinic visit on August 2022 * Dyslipidemia degenerative osteoarthritis, History of right TKR and morbid obesity: Her BMI is 35.3 kg/m?: Hold atorvastatin in view of increased total bilirubin and liver chemistry. DVT prophylaxis, high risk with compression of main portal vein: On therapeutic dose of Lovenox as mentioned above. DW family at bedside. Charges/Coding Visit Charges Inpatient E&M: 57244 Subs Hosp L2
[2022-10-13] MEDS: traMADol 50 MG Tablet PO (10:44)
[2022-10-13] MEDS: Ondansetron 4 MG/2 ML Vial IV (10:45)
[2022-10-13] MEDS: Ursodiol 250 MG Tablet 500 MG PO ×2 (10:45→22:39)
[2022-10-13] MEDS: Docusate Sodium 100 MG Capsule PO ×2 (10:46→22:39)
[2022-10-13] MEDS: Enoxaparin 100 MG/ML Syringe SC ×2 (10:46→22:39)
[2022-10-13] MEDS: Pantoprazole Sodium 40 MG Tablet PO (10:46)
[2022-10-13] MEDS: Metoprolol(XL)Succ 50 MG Tablet 25 MG PO (10:46)
--- NOTE | 2022-10-13 11:36 | CASEMGMT ---
Spoke with massage therapy instructor regarding pt session today, recommending a walker, but not necessarily therapy post hospitalization. LISA BLACK into pt room, pt at bedside, discussed having a FWW at home. Pt is agreeable to this and feels she will not need it senior living. Provided pt with a verbal local in network list of DME companies, pt chose [employer]. Verified insurance acceptance with Marilou at [facility] [employer]. Pt denies further needs at this time. LISA BLACK to continue to monitor for oxygen.
--- NOTE | 2022-10-13 13:27 | CHAPLAIN ---
Type of Pastoral Visit ___ Initial Visit _x__ Follow-up Visit ___ On-call Visit ___ General Patient Visit ___ Spiritual Assessment ___ Family Conference ___ Bereavement ___ Rapid Response ___ Code Blue ___ Other (describe below) Pastoral Care Referral From _x__ Patient _x__ Family ___ Nurse ___ Physician ___ Pain Management Nurse ___ Gaming Surveillance Observer ___ Other (describe below) Sacrament/Intervention _x__ Active listening ___ Anointing ___ Gnosticist ___ Bereavement ___ Communion _x__ Harriet exploration ___ ___ Life review _x__ Prayer ___ Reconciliation ___ Sacrament of Sick _x__ Supportive presence ___ Wedding ___ Other (describe below) Pastoral Comments explored feelings with patient about her situation; pt admits to discouragement and some depression due to illness and great discomfort physically; pt has supportive family; examined the resources that pt has and the positive things in life to focus on; pt asked about her spiritual needs and pt requests prayers for her life; future visits are welcome; spouse came as visit ended; spouse expresses appreciation for visit and requests ongoing support
[2022-10-13 15:41] LABS: Pathologist Review Reviewed
[2022-10-13 15:43] LABS: Pathologist Review Reviewed
[2022-10-13] MEDS: Dicyclomine 10 MG Capsule PO (16:05)
[2022-10-13 16:49] LABS: Absolute Lymphocyte Count 0.89 X10^3/uL (0.83-4.51); Absolute Neutrophil Count 18.7 X10^3/uL (2.0-7.7); Basophil# 0.12 X10^3/uL; Basophil% 0.5 % (0-1); Eosinophil# 0.04 X10^3/uL; Eosinophils% 0.2 % (0-5); Hematocrit 31.6 % (37-47); Hemoglobin 10.3 g/dL (12.0-15.0); Lymphocyte # 0.89 X10^3/ul (0.83-4.51); Lymphocyte % 3.7 % (19-41); Mean Corp Hgb Conc 32.6 g/dL (32-36); Mean Corpuscular Hgb 29.8 pg (27.0-32.0); Mean Corpuscular Volume 91.3 fL (81-99); Mean Platelet Vol. 13.3 fl (6.2-12.0); Monocyte% 15.1 % (0-10); NRBC Flagged by Analyzer 0 % (0-5); Neutrophil # 18.67 X10^3/uL (2.7-7.7); POSITIVE DIFFERENTIAL YES; Platelet Count 156 K/mm3 (150-450); RBC Distribution Width CV 17.1 % (11.6-14.6); RBC Distribution Width SD 57.1 fl (35.1-43.9); Red Blood Count 3.46 M/mm3 (4.2-5.4); White Blood Count 23.9 K/mm3 (4.4-11.0)
[2022-10-13 16:51] LABS: Differential Indicated SCAN CRITERIA MET
[2022-10-13 17:11] LABS: Erythrocyte Sedimentation Rate 64 mm/hr (0-30)
[2022-10-13 17:12] LABS: LDH 673 U/L (84-246)
[2022-10-13 17:15] LABS: Lactic Acid 0.9 mmol/L (0.4-1.9)
[2022-10-13] MEDS: Furosemide 20 MG/2 ML VIAL IV (17:27)
[2022-10-13 17:29] LABS: Anisocytosis RARE; Macrocytosis RARE; Platelet Estimate ADEQUATE (ADEQ); Red Cell Morphology N CHROM NORMAL (NORM C&C)
--- NOTE | 2022-10-13 17:40 | CM.ED ---
Social Work SW introduced self and role to patient. Pt's spouse and friend present. SW offered emotional support and provided patient with coping skills handouts for depression and anxiety. SW encouraged patient to ask for social work if she needs support. Kate Quiroz CORPORATE TREASURY ANALYST, GAGE MAKER
--- NOTE | 2022-10-13 18:44 | PN.GI_ITS ---
Subjective Subjective Patient is mildly depressed. She has been up and moving somewhat. Appetite is still poor. Objective Data Objective Data Vital Signs: Vital Signs Temp Pulse Resp BP Pulse Ox O2 Del Method O2 Flow Rate 98.5 F 95 18 122/74 H 92 Nasal Cannula 2 10/13/22 16:06 10/13/22 16:06 10/13/22 16:13 10/13/22 16:06 10/13/22 17:03 10/13/22 17:03 10/13/22 17:03 Oxygen Flow Rate (L/min) [ 3 AMBULATING with Oxygen #2] Oxygen Flow Rate (L/min) [At 0 REST on Room Air] Oxygen Flow Rate (L/min) [At 2 REST with Oxygen] Oxygen Flow Rate (L/min) [ 2 AMBULATING with Oxygen #1] Oxygen Flow Rate (L/min) 2 Oxygen Delivery Method Nasal Cannula Weight: 218 lb 11.177 oz Body Mass Index (BMI) 35.3 Intake & Output: Intake and Output for Last 24 Hours 10/11/22 10/12/22 10/13/22 23:59 23:59 23:59 Intake Total 1645.83 / 1645.83 5781.67 / 5781.67 1750 / 1750 Output Total 650 / 650 900 / 900 650 / 650 Balance 995.83 / 995.83 4881.67 / 4881.67 1100 / 1100 Lab / Micro Data 10/13/22 16:30 10/13/22 05:09 Labs: Laboratory Results - last 24 hr 10/12/22 11:35: Diff Path Review Reviewed 10/13/22 05:09: WBC 24.7 H, RBC 3.66 L, Hgb 11.0 L, Hct 33.2 L, MCV 90.7, MCH 30.1, MCHC 33.1, RDW Std Deviation 56.6 H, RDW Coeff of Gisella 17.0 H, Plt Count 150, MPV 14.3 H, Immature Gran % (Auto) 2.100 H, Neut % (Auto) 78.0 H, Lymph % (Auto) 3.7 L, [place] % (Auto) 15.7 H, Eos % (Auto) 0.2, Baso % (Auto) 0.3, Absolute Neuts (auto) 19.3 H, Absolute Lymphs (auto) 0.91, Nucleated RBC % 0, Differential Comment SCANNED, Diff Path Review Reviewed, Sodium 140, Potassium 4.2, Chloride 115 H, Carbon Dioxide 22.0, Anion Gap 3 L, BUN 33 H, Creatinine 1.32 H, Estim Creat Clear Calc 39.25, Est GFR (MDRD) Af Amer 52 L, Est GFR (MDRD) Non-Af 43 L, BUN/Creatinine Ratio 25.0 H, Glucose 116 H, Calcium 8.3 L, Total Bilirubin 2.50 H, AST 37, ALT 53, Alkaline Phosphatase 190 H, Total Protein 5.5 L, Albumin 2.0 L, Globulin 3.5, Albumin/Globulin Ratio 0.6 L 10/13/22 16:30: WBC 23.9 H, RBC 3.46 L, Hgb 10.3 L, Hct 31.6 L, MCV 91.3, MCH 29.8, MCHC 32.6, RDW Std Deviation 57.1 H, RDW Coeff of Gisella 17.1 H, Plt Count 156, MPV 13.3 H, Immature Gran % (Auto) 2.500 H, Neut % (Auto) 78.0 H, Lymph % (Auto) 3.7 L, [place] % (Auto) 15.1 H, Eos % (Auto) 0.2, Baso % (Auto) 0.5, Absolute Neuts (auto) 18.7 H, Absolute Lymphs (auto) 0.89, Nucleated RBC % 0, Differential Comment SEE COMMENT, Diff Path Review May foll, Platelet Estimate ADEQUATE, RBC Morphology N CHROM, Anisocytosis RARE, Macrocytosis RARE, ESR 64 H , Lactic Acid 0.9, Lactate Dehydrogenase 673 H, C-React Prot Ext Range 148.00 H Micro: Microbiology 10/12/22 19:55 Mucosa - Nasopharyngeal Rapid RSV (DFA) - Final 10/12/22 19:55 Nasal Secretion SARS-CoV-2 & FLU Antigen (Rapid) - Final 10/10/22 14:55 Blood Culture (Wb) - Right Hand Blood Culture - Preliminary No growth in 48 hours. 10/10/22 15:00 Blood Culture (Wb) - Anticubital Right Blood Culture - Preliminary No growth in 48 hours. Physical Exam Const alert and no apparent distress HEENT head/scalp atraumatic and moist oral mucous membranes Eyes Eyes Narrative: icterus. Resp normal respiratory effort, no retractions, no use of accessory muscles and clear to auscultation bilaterally Cardio regular rate, regular rhythm, S1 normal heart sound and S2 normal heart sound GI GI Narrative: RUQ abdominal pain. Extremity General Extremity: edema bilateral Skin Skin Narrative: jaundice. Assessment & Plan Assessment/Plan (1) Jaundice: (2) Bilirubinemia: (3) Transaminitis: (4) Liver mass: PLAN: Plan 67-year-old with past medical history of nicotine addiction with recent chest pain and possible aortic aneurysm. That was ruled out along with coronary artery disease at [facility] last week. She is in today with worsening abdominal pain and discovered to be jaundice. Her bilirubin is up to 5. She had mild elevation of her lipase at 87. 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 She will need to undergo ERCP with spyglass and biopsies. She will also need decompression of the remy hepatis. She was explained alternatives, risk and benefits including outstanding bleeding, infection, sepsis, perforation, need for return to . She will have an ASA of 3. 10/09: Continue to hold Lovenox. Plan is for ERCP today 10/11: Her LFTs are improving. Agree with transitioning narcotics to nonsteroidals. I would watch her acute kidney injury. Agree with continued antiemetics. Her CA 19-9 is elevated. That is consistent with cholangiocarcinoma. I will order a CEA. Her P ANCA is within normal limits. Therefore I do not think this came from primary sclerosing cholangitis. CRP and CEA will biochemically help to determine severity. However we already know that she has metastatic disease by previous imaging. She is yet to be seen by oncology. I do not know if they will want lung biopsy, PET scan or any other imaging modalities. She will need a repeat ERCP with possible radiofrequency ablation in the future. 10/12: Awaiting biopsies from ERCP. Her kidney function is likely elevated secondary to prerenal azotemia. I will put her on IV fluids. She had a small bowel movement yesterday. Chest x-ray shows bilateral airspace disease. I will put her on azithromycin. Awaiting blood cultures. I will check urine cultures. Continue Zosyn therapy as her white blood cell count is extremely high. I suspect this is secondary to reaction from mild pancreatitis by biochemical analysis. I cannot get a CT scan abdomen pelvis because her kidneys cannot tolerate it right now. Hopefully her kidney function will improve with IV fluids. 10/13: White blood cell count, LFTs and kidney function are improving with IV fluids. I will give her a dose of Lasix. Continue azithromycin and Zosyn. Biopsies of biliary stricture at the hilum are positive for well differentiated adenocarcinoma. CA 19-9 is elevated and imaging does show likely metastasis. Continue supportive care. Charges/Coding Visit Charges Inpatient E&M: 07555 Subs Hosp L3
[2022-10-13] MEDS: Furosemide 20 MG/2 ML VIAL 10 MG IV (20:21)
[2022-10-13] MEDS: oxyCODONE 5 MG Tablet 10 MG PO (20:21)
[2022-10-13] MEDS: Sertraline 50 MG Tablet 25 MG PO (22:39)
[2022-10-14] VITALS (10 sets, daily range): BP systolic 82–115; BP diastolic 36–66; PULSE 93–107; RESP 17–18; TEMP 36.5–37.1; O2SAT 82–100
[2022-10-14] MEDS: oxyCODONE 5 MG Tablet 10 MG PO ×2 (02:21→09:07)
[2022-10-14] MEDS: Metoclopramide 10 MG/2 ML Vial 5 MG IV ×2 (05:08→12:02)
[2022-10-14 05:42] LABS: Absolute Lymphocyte Count 1.27 X10^3/uL (0.83-4.51); Absolute Neutrophil Count 20.1 X10^3/uL (2.0-7.7); Basophil# 0.15 X10^3/uL; Basophil% 0.5 % (0-1); Eosinophil# 0.08 X10^3/uL; Eosinophils% 0.3 % (0-5); Hematocrit 27.2 % (37-47); Hemoglobin 8.9 g/dL (12.0-15.0); Lymphocyte # 1.27 X10^3/ul (0.83-4.51); Lymphocyte % 4.6 % (19-41); Mean Corp Hgb Conc 32.7 g/dL (32-36); Mean Corpuscular Hgb 30.1 pg (27.0-32.0); Mean Corpuscular Volume 91.9 fL (81-99); Mean Platelet Vol. 13.4 fl (6.2-12.0); Monocyte# 5.15 X10^3/uL; Monocyte% 18.5 % (0-10); NRBC Flagged by Analyzer 0 % (0-5); Neutrophil # 20.08 X10^3/uL (2.7-7.7); Neutrophil % 72.3 % (47-70); POSITIVE DIFFERENTIAL YES; POSITIVE MORPHOLOGY YES; Platelet Count 192 K/mm3 (150-450); RBC Distribution Width CV 17.3 % (11.6-14.6); RBC Distribution Width SD 58.1 fl (35.1-43.9); Red Blood Count 2.96 M/mm3 (4.2-5.4); White Blood Count 27.8 K/mm3 (4.4-11.0)
[2022-10-14 05:48] LABS: Differential Indicated SCAN CRITERIA MET
[2022-10-14 06:06] LABS: ALB/GLOB Ratio 0.6 RATIO (0.9-2.4); AST(SGOT) 22 U/L (15-37); Alanine Aminotransfer ALT/SGPT 37 U/L (13-56); Albumin, Serum 1.8 g/dL (3.2-5.0); Alkaline Phosphatase 147 U/L (45-117); Anion Gap 3 (5-15); BUN 31 mg/dL (7-18); Chloride 117 mmol/L (98-107); Creatinine, Serum 1.41 mg/dL (0.55-1.02); EST Glomerular Filtration Rate 40 mL/min (>60); Est Glom Filt Rate - Afr Amer 48 mL/min (>60); Estimated Creatinine Clearance 36.74 ml/min; Globulin 3.2 g/dL (2.2-4.2); Glucose 127 mg/dL (74-106); Sodium Level 144 mmol/L (136-145)
[2022-10-14 06:39] LABS: Anisocytosis 1+; Differential Comment SCANNED
[2022-10-14 07:20] LABS: Lipase 28 U/L (13-75)
--- NOTE | 2022-10-14 07:36 | PN.HOSP_ITS ---
Reason for Visit Reason for Visit: Diagnoses Elevated white blood cell count, unspecified (10/08/22) Other disorders of bilirubin metabolism (10/08/22) Acute kidney failure, unspecified (10/08/22) Hepatomegaly, not elsewhere classified (10/08/22) Unspecified jaundice (10/08/22) Elevation of levels of liver transaminase levels (10/08/22) Subjective Subjective Complains of intermittent umbilical abdominal pain. Dozing off during the day. Objective Data Objective Data Vital Signs: Vital Signs Temp Pulse Resp BP Pulse Ox O2 Del Method O2 Flow Rate 36.6 C 97 18 115/66 94 Nasal Cannula 2 10/14/22 04:35 10/14/22 04:35 10/14/22 04:35 10/14/22 04:35 10/14/22 04:35 10/14/22 04:35 10/14/22 04:35 Oxygen Flow Rate (L/min) [ 3 AMBULATING with Oxygen #2] Oxygen Flow Rate (L/min) [At 0 REST on Room Air] Oxygen Flow Rate (L/min) [At 2 REST with Oxygen] Oxygen Flow Rate (L/min) [ 2 AMBULATING with Oxygen #1] Oxygen Flow Rate (L/min) 2 Oxygen Delivery Method Nasal Cannula Weight: 99.2 kg Body Mass Index (BMI) 35.3 Intake & Output: Intake and Output for Last 24 Hours 10/12/22 10/13/22 10/14/22 23:59 23:59 23:59 Intake Total 5781.67 / 5781.67 2305 / 2305 1537.5 / 1537.5 Output Total 900 / 900 1250 / 1250 300 / 300 Balance 4881.67 / 4881.67 1055 / 1055 1237.5 / 1237.5 Lab / Micro Data 10/14/22 05:11 10/14/22 05:11 Labs: Laboratory Results - last 24 hr 10/12/22 11:35: Diff Path Review Reviewed 10/13/22 05:09: Diff Path Review Reviewed 10/13/22 16:30: WBC 23.9 H, RBC 3.46 L, Hgb 10.3 L, Hct 31.6 L, MCV 91.3, MCH 29.8, MCHC 32.6, RDW Std Deviation 57.1 H, RDW Coeff of Gisella 17.1 H, Plt Count 156, MPV 13.3 H, Immature Gran % (Auto) 2.500 H, Neut % (Auto) 78.0 H, Lymph % (Auto) 3.7 L, [place] % (Auto) 15.1 H, Eos % (Auto) 0.2, Baso % (Auto) 0.5, Absolute Neuts (auto) 18.7 H, Absolute Lymphs (auto) 0.89, Nucleated RBC % 0, Differential Comment SEE COMMENT, Diff Path Review May wing, Platelet Estimate ADEQUATE, RBC Morphology N CHROM, Anisocytosis RARE, Macrocytosis RARE, ESR 64 H , Lactic Acid 0.9, Lactate Dehydrogenase 673 H, C-React Prot Ext Range 148.00 H 10/14/22 05:11: WBC 27.8 H, RBC 2.96 L, Hgb 8.9 L, Hct 27.2 L, MCV 91.9, MCH 30.1, MCHC 32.7, RDW Std Deviation 58.1 H, RDW Coeff of Gisella 17.3 H, Plt Count 192, MPV 13.4 H, Immature Gran % (Auto) 3.800 H, Neut % (Auto) 72.3 H, Lymph % (Auto) 4.6 L, [place] % (Auto) 18.5 H, Eos % (Auto) 0.3, Baso % (Auto) 0.5, Absolute Neuts (auto) 20.1 H, Absolute Lymphs (auto) 1.27, Nucleated RBC % 0, Differential Comment SCANNED, Diff Path Review May wing, Anisocytosis 1+, Sodium 144, Potassium 4.0, Chloride 117 H, Carbon Dioxide 24.0, Anion Gap 3 L, BUN 31 H , Creatinine 1.41 H, Estim Creat Clear Calc 36.74, Est GFR (MDRD) Af Amer 48 L, Est GFR (MDRD) Non-Af 40 L, BUN/Creatinine Ratio 22.0 H, Glucose 127 H, Calcium 8.0 L, Total Bilirubin 1.70 H, AST 22, ALT 37, Alkaline Phosphatase 147 H, C- React Prot Ext Range 131.00 H, Total Protein 5.0 L, Albumin 1.8 L, Globulin 3.2, Albumin/Globulin Ratio 0.6 L, Lipase 28 Micro: Microbiology 10/12/22 19:55 Mucosa - Nasopharyngeal Rapid RSV (DFA) - Final 10/12/22 19:55 Nasal Secretion SARS-CoV-2 & FLU Antigen (Rapid) - Final 10/10/22 14:55 Blood Culture (Wb) - Right Hand Blood Culture - Preliminary No growth in 48 hours. 10/10/22 15:00 Blood Culture (Wb) - Anticubital Right Blood Culture - Preliminary No growth in 48 hours. Physical Exam Const alert and no apparent distress Resp normal respiratory effort, no retractions, no use of accessory muscles and clear to auscultation bilaterally Cardio regular rate, regular rhythm, S1 normal heart sound and S2 normal heart sound GI normal to inspection, nondistended, normoactive bowel sounds, soft to palpation, non-tender and non-distended Extremity Extremity Narrative: non-pitting edema. Psych affect normal Assessment & Plan Assessment/Plan (1) Liver mass: PLAN: Data: * Outpt CT .3 cm mass central hilar and location, cause for obstructive jaundice, suspicion for cholangiocarcinoma: It shows infiltrative, irregular mass about 4.3 cm around the hilum of liver with peripheral biliary dilatation. As reported right portal vein patent left portal vein not seen but with collateral vessels. Mild compression of main portal vein. * MRCP 10/08: 3.3 cm ill-defined mass in segment 2/4 B of the liver consistent with known cholangiocarcinoma. There is associated moderate obstruction of the intrahepatic biliary ducts. No evidence of metastatic disease in the abdomen. * ERCP 10/10: ERCP on 10/09 shows biliary tumor at bifurcation of right and left hepatic ducts. Biliary tract obstruction secondary to mass and bifurcation of right and left hepatic ducts. Multiple severe biliary strictures, malignant appearing. CHD severely dilated secondary to stricture. Common hepatic duct and left main hepatic duct was successfully dilated. Cells for cytology and biopsy was performed at hepatic duct bifurcation. * CA 19-9 elevated (462), concerning for cholangiocarcinoma. CEA WNL (2.8), AFP 4.1 * Biopsy shows adenocarcinoma. DW Dr. Stokes, he stent pathology out for additional staging. He recommends a CT of chest with contrast for further staging. He plans to see the patient on 10/16, inpt or outpt. Pt will need a bone scan, but that can be deferred for now. (2) EVELIA (acute kidney injury): PLAN: Improving with IVF (3) Leukocytosis: QUALIFIERS: Leukocytosis type: unspecified Qualified Code(s): D72.829 - Elevated white blood cell count, unspecified PLAN: unclear significance on pip/tazo Blood cultures negative. Encouraged PEP (4) Somnolence: PLAN: dozing off easily today, but easily awakes and is appropriate no narcotics unknown if underlying ABEBE. PLAN: Plan Chronic conditions: * CAD, two-vessel disease: She had work-up in [facility] in July 2022. Patient currently on baby aspirin and beta-justo. Medications continued. Try to obtain medical record from [facility]. * GERD on PPI: Continue PPI. * Left upper lobe pulmonary nodule: CT abdomen and pelvis showed multiple bilateral lung base pulmonary nodules, largest right anteriorly 1.[address] Guerrero and he mentioned left upper lobe nodule and advised to repeat CT chest in 3 months in clinic visit on August 2022 * Dyslipidemia degenerative osteoarthritis, History of right TKR and morbid obesity: Her BMI is 35.3 kg/m?: Hold atorvastatin in view of increased total bilirubin and liver chemistry. DVT prophylaxis, high risk with compression of main portal vein: On therapeutic dose of Lovenox as mentioned above. DW at bedside. DW pt's dtr on the floor. Charges/Coding Visit Charges Inpatient E&M: 22759 Subs Hosp L2
--- NOTE | 2022-10-14 07:46 | CT_ITS ---
STUDY: CT CHEST WITH CONTRAST REASON FOR EXAM: Female, 67 years old. pneumonia. Staging for cholangiocarcinoma RADIATION DOSAGE (If Supplied By Facility): CTDIvol = ( 19.76 ) mGy, DLP = ( 805.53 ) mGycm TECHNIQUE: Transaxial imaging was performed following intravenous administration of IV 100mL Isovue-370. Multiplanar coronal and sagittal images were reformatted. Individualized dose optimization techniques were used for this CT. COMPARISON: Comparison is made with prior CT scan the thorax dated July 30, 2022 and prior chest radiograph dated October 12, 2022. FINDINGS: CHEST There is elevation of the right hemidiaphragm. There is evidence of a ascites. Focal infiltrate and/or atelectasis in the anterior aspect of the right middle lobe. Increased markings at the lung bases suggests bibasilar atelectasis slightly worse on the left side. Small pleural effusions. There is a 9.5 mm noncalcified nodule in the medial aspect of the lingular segment of the left upper lobe. Normal heart and pericardium. Normal mediastinum. Normal hilar regions. Normal unenhanced pulmonary arteries. Normal aorta arch and descending thoracic aorta. There are multi-level degenerative changes of the thoracic spine. There is a 4.4 cm x 6.9 cm heterogeneous mass in the left lobe of the thyroid. Biliary dilatation in the left lobe. The gallbladder is filled with the contrast. There is diffuse thickening of the gastric wall with increased markings in the surrounding fat. There is evidence of a soft tissue density in the peripancreatic peritoneal fat. I suspect adenopathy in the gastroepiploic ligament. A biliary stent is seen within the common bile duct. CT/Chest WITH Contrast IMPRESSION: Findings suggest some bibasilar atelectasis and/or infiltrates with tiny pleural effusions. 9.5 mm noncalcified nodule in the medial aspect of the lingular segment of the left upper lobe. Ascites. Mass is seen in the left lobe of the liver. Diffuse thickening of the stomach with increased markings in the surrounding peripancreatic fat. A mass lesion cannot be excluded. Small right renal cyst. Electronically Signed: Dayton Maldonado MD at 9:24 EDT ,
[2022-10-14 08:01] LABS: Erythrocyte Sedimentation Rate 55 mm/hr (0-30)
[2022-10-14] MEDS: 0.9% Saline Lock 10 ML Syringe IV ×2 (09:06→10:18)
[2022-10-14] MEDS: Polyethylene Glycol 3350 17 GM PACKET PO (09:07)
[2022-10-14] MEDS: Pantoprazole Sodium 40 MG Tablet PO (09:07)
[2022-10-14] MEDS: Senna/Docusate Sodium 1 Tablet 2 TABLET PO (09:07)
[2022-10-14] MEDS: Docusate Sodium 100 MG Capsule PO ×2 (09:07→22:23)
[2022-10-14] MEDS: Dicyclomine 10 MG Capsule PO (09:07)
[2022-10-14] MEDS: Metoprolol(XL)Succ 50 MG Tablet 25 MG PO (09:07)
[2022-10-14] MEDS: Ursodiol 250 MG Tablet 500 MG PO ×2 (09:08→22:24)
[2022-10-14] MEDS: Enoxaparin 100 MG/ML Syringe SC ×2 (09:08→22:23)
[2022-10-14] MEDS: 0.9% Normal Saline 1,000 ML 75 ML IV (12:02)
[2022-10-14] MEDS: NYSTATIN 500,000 UNIT/5 ML UDC 500000 UNIT PO ×3 (12:16→22:23)
[2022-10-14 13:00] LABS: Mucous, Urine 0 SEEN /hpf (<or=2+)
[2022-10-14 13:08] LABS: Pathologist Review Reviewed
[2022-10-14 13:13] LABS: Color, Urine Yellow (Yellow); Glucose, Dipstick Normal (Normal); Ketone-Dipstick Negative (Negative); Leukocyte Esterase-Dipstick 500 /ul (Negative); Nitrite-Dipstick Negative (Negative); Occult Blood-Urine 10 /ul (Negative); Protein-Dipstick 30 mg/dl (Negative); Urine Clarity Clear (Clear); Urine Urobilinogen Normal (Normal)
[2022-10-14 13:41] LABS: Urine Bilirubin Dipstick 1 mg/dL (Negative)
[2022-10-14 13:43] LABS: Allen Test Positive; Base Excess -9 mmol/L (-2 to +2); Blood Gas Specimen Type ART; O2 Delivery Device Cannula; PO2 71 mmHG (75-100); SITE L Radial; SO2 91 % (95-99); Total Carbon Dioxide 19 mmol/L; pCO2 41.8 mmHg (35-45); pH 7.24 (7.35-7.45)
[2022-10-14 14:04] LABS: Bacteria 1+ /hpf (None Seen); Red Blood Cells-Urine 0-5 SEEN /hpf (0-5); Squamous Epithelial Cells - UA 0-5 SEEN /hpf (5-10); White Blood Cells 25-50 SEEN /hpf (0-5)
--- NOTE | 2022-10-14 17:09 | PN.GI_ITS ---
Subjective Subjective She is still having alot of abdominal pain . She rates it at 5/10. She had CT scan of the chest. She is still requiring oxygen. Objective Data Objective Data Vital Signs: Vital Signs Temp Pulse Resp BP Pulse Ox O2 Del Method O2 Flow Rate 98.0 F 93 18 110/56 L 95 Nasal Cannula 2 10/14/22 15:35 10/14/22 15:35 10/14/22 15:35 10/14/22 15:35 10/14/22 15:35 10/14/22 15:35 10/14/22 15:35 Oxygen Flow Rate (L/min) [ 3 AMBULATING with Oxygen #2] Oxygen Flow Rate (L/min) [At 0 REST on Room Air] Oxygen Flow Rate (L/min) [At 2 REST with Oxygen] Oxygen Flow Rate (L/min) [ 2 AMBULATING with Oxygen #1] Oxygen Flow Rate (L/min) 2 Oxygen Delivery Method Nasal Cannula Weight: 218 lb 11.177 oz Body Mass Index (BMI) 35.3 Intake & Output: Intake and Output for Last 24 Hours 10/12/22 10/13/22 10/14/22 23:59 23:59 23:59 Intake Total 5781.67 / 5781.67 2305 / 2305 2307.92 / 2307.92 Output Total 900 / 900 1250 / 1250 300 / 300 Balance 4881.67 / 4881.67 1055 / 1055 92 / Lab / Micro Data 10/14/22 05:11 10/14/22 05:11 Labs: Laboratory Results - last 24 hr 10/13/22 16:30: Differential Comment SEE COMMENT, Diff Path Review Reviewed, Platelet Estimate ADEQUATE, RBC Morphology N CHROM, Anisocytosis RARE, Macrocytosis RARE, ESR 64 H, Lactic Acid 0.9, Lactate Dehydrogenase 673 H, C- React Prot Ext Range 148.00 H 10/14/22 05:11: WBC 27.8 H, RBC 2.96 L, Hgb 8.9 L, Hct 27.2 L, MCV 91.9, MCH 30.1, MCHC 32.7, RDW Std Deviation 58.1 H, RDW Coeff of Gisella 17.3 H, Plt Count 192, MPV 13.4 H, Immature Gran % (Auto) 3.800 H, Neut % (Auto) 72.3 H, Lymph % (Auto) 4.6 L, Stephens % (Auto) 18.5 H, Eos % (Auto) 0.3, Baso % (Auto) 0.5, Absolute Neuts (auto) 20.1 H, Absolute Lymphs (auto) 1.27, Nucleated RBC % 0, Differential Comment SCANNED, Diff Path Review July, Anisocytosis 1+, ESR 55 H, Sodium 144, Potassium 4.0, Chloride 117 H, Carbon Dioxide 24.0, Anion Gap 3 L , BUN 31 H, Creatinine 1.41 H, Estim Creat Clear Calc 36.74, Est GFR (MDRD) Af Amer 48 L, Est GFR (MDRD) Non-Af 40 L, BUN/Creatinine Ratio 22.0 H, Glucose 127 H, Calcium 8.0 L, Total Bilirubin 1.70 H, AST 22, ALT 37, Alkaline Phosphatase 147 H, C-React Prot Ext Range 131.00 H, Total Protein 5.0 L, Albumin 1.8 L, Livia bulin 3.2, Albumin/Globulin Ratio 0.6 L, Lipase 28 10/14/22 12:53: Urine Color Yellow, Urine Clarity Clear, Urine pH 5.0, Ur Specific [place] 1.010, Urine Protein 30 H, Urine Glucose (UA) Normal, Urine Ketones Negative, Urine Occult Blood 10 H, Urine Nitrite Negative, Urine Bilirubin 1 H, Urine Urobilinogen Normal, Ur Leukocyte Esterase 500 H, Urine RBC 0-5 SEEN, Urine WBC 25-50 SEEN, Ur Squamous Epith Cells 0-5 SEEN, Urine Bacteria 1+, Urine Mucus 0 SEEN Micro: Microbiology 10/12/22 19:55 Mucosa - Nasopharyngeal Rapid RSV (DFA) - Final 10/12/22 19:55 Nasal Secretion SARS-CoV-2 & FLU Antigen (Rapid) - Final 10/10/22 14:55 Blood Culture (Wb) - Right Hand Blood Culture - Preliminary No growth in 48 hours. 10/10/22 15:00 Blood Culture (Wb) - Anticubital Right Blood Culture - Preliminary No growth in 48 hours. ABG Data ABG results: ABG 10/14/22 13:39 Specimen Type ART Sample Site L Radial pH 7.24 L Bicarbonate Actual 18.0 L Total CO2 19 Base Excess -9 L O2 Saturation 91 L ABG pCO2 41.8 ABG pO2 71 L Charbel Test Positive O2 Delivery Device Cannula Liter Flow 2.0 Radiography Diagnostic Testing: Radiology Impression Chest CT 10/14/22 07:46 IMPRESSION: Findings suggest some bibasilar atelectasis and/or infiltrates with tiny pleural effusions. 9.5 mm noncalcified nodule in the medial aspect of the lingular segment of the left upper lobe. Ascites. Mass is seen in the left lobe of the liver. Diffuse thickening of the stomach with increased markings in the surrounding peripancreatic fat. A mass lesion cannot be excluded. Small right renal cyst. Electronically Signed: Dayton Maldonado MD at 9:24 EDT , Physical Exam Const alert and no apparent distress Resp normal respiratory effort, no retractions, no use of accessory muscles and clear to auscultation bilaterally Cardio regular rate, regular rhythm, S1 normal heart sound and S2 normal heart sound GI normal to inspection, nondistended, normoactive bowel sounds, soft to palpation, non-tender and non-distended Extremity Extremity Narrative: non-pitting edema. Psych affect normal Assessment & Plan Assessment/Plan (1) Jaundice: (2) Bilirubinemia: (3) Transaminitis: (4) Liver mass: PLAN: Plan 67-year-old with past medical history of nicotine addiction with recent chest pain and possible aortic aneurysm. That was ruled out along with coronary artery disease at [facility] last week. She is in today with worsening abdominal pain and discovered to be jaundice. Her bilirubin is up to 5. She had mild elevation of her lipase at 87. 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 She will need to undergo ERCP with spyglass and biopsies. She will also need decompression of the remy hepatis. She was explained alternatives, risk and be nefits including outstanding bleeding, infection, sepsis, perforation, need for return to . She will have an ASA of 3. 10/09: Continue to hold Lovenox. Plan is for ERCP today 10/11: Her LFTs are improving. Agree with transitioning narcotics to nonsteroidals. I would watch her acute kidney injury. Agree with continued antiemetics. Her CA 19-9 is elevated. That is consistent with cholangiocarcinoma. I will order a CEA. Her P ANCA is within normal limits. Therefore I do not t hink this came from primary sclerosing cholangitis. CRP and CEA will biochemically help to determine severity. However we already know that she has metastatic disease by previous imaging. She is yet to be seen by oncology. I do not know if they will want lung biopsy, PET scan or any other imaging modalities. She will need a repeat ERCP with possible radiofrequency ablation in the future. 10/12: Awaiting biopsies from ERCP. Her kidney function is likely elevated secondary to prerenal azotemia. I will put her on IV fluids. She had a small bowel movement yesterday. Chest x-ray shows bilateral airspace disease. I will put her on azithromycin. Awaiting blood cultures. I will check urine cultures. Continue Zosyn therapy as her white blood cell count is extremely high. I suspect this is secondary to reaction from mild pancreatitis by biochemical analysis. I cannot get a CT scan abdomen pelvis because her kidneys cannot tolerate it right now. Hopefully her kidney function will improve with IV fluids. 10/13: White blood cell count, LFTs and kidney function are improving with IV fluids. I will give her a dose of Lasix. Continue azithromycin and Zosyn. Biopsies of biliary stricture at the hilum are positive for well differentiated adenocarcinoma. CA 19-9 is elevated and imaging does show likely metastasis. Continue supportive care. 10/14: WBC is increasing and kidney functio is worse. Lft's are almost normal. CRP is still really high, but improving. Continue supportive care and decrease IVF's to 75ml/hr. Charges/Coding Visit Charges Inpatient E&M: 27509 Subs Hosp L3
[2022-10-15] VITALS (15 sets, daily range): BP systolic 49–126; BP diastolic 21–102; PULSE 97–130; RESP 18–31; TEMP 34.8–37; O2SAT 89–98
[2022-10-15] MEDS: 0.9% Normal Saline 1,000 ML 75 ML IV (00:21)
[2022-10-15] MEDS: Ketorolac 15 MG/ML Vial IV (03:18)
[2022-10-15 06:01] LABS: Hematocrit 17.7 % (37-47); Mean Corp Hgb Conc 32.2 g/dL (32-36); Mean Corpuscular Hgb 30.3 pg (27.0-32.0); Mean Corpuscular Volume 94.1 fL (81-99); Mean Platelet Vol. 12.8 fl (6.2-12.0); POSITIVE COUNT YES; POSITIVE DIFFERENTIAL YES; POSITIVE MORPHOLOGY YES; Platelet Count 221 K/mm3 (150-450); RBC Distribution Width CV 17.7 % (11.6-14.6); RBC Distribution Width SD 60.6 fl (35.1-43.9); Red Blood Count 1.88 M/mm3 (4.2-5.4)
[2022-10-15 06:34] LABS: White Blood Count 40.9 K/mm3 (4.4-11.0)
[2022-10-15 06:35] LABS: Differential Indicated MANUAL DIFF; Hemoglobin 5.7 g/dL (12.0-15.0)
[2022-10-15 06:46] LABS: ALB/GLOB Ratio 0.6 RATIO (0.9-2.4); AST(SGOT) 232 U/L (15-37); Alanine Aminotransfer ALT/SGPT 118 U/L (13-56); Albumin, Serum 1.6 g/dL (3.2-5.0); Alkaline Phosphatase 126 U/L (45-117); Anion Gap 10 (5-15); BUN 51 mg/dL (7-18); BUN/Creat Ratio 17.6 RATIO (10-20); Calcium,Total 8.2 mg/dL (8.5-10.1); Chloride 114 mmol/L (98-107); EST Glomerular Filtration Rate 17 mL/min (>60); Est Glom Filt Rate - Afr Amer 21 mL/min (>60); Estimated Creatinine Clearance 17.86 ml/min; Globulin 2.7 g/dL (2.2-4.2); Glucose 143 mg/dL (74-106); Potassium 4.6 mmol/L (3.5-5.1); Protein, Total 4.3 g/dL (6.4-8.2); Sodium Level 140 mmol/L (136-145)
[2022-10-15 06:51] LABS: Total Cells Counted 100 (MANUAL DIFF)
[2022-10-15 06:52] LABS: Lymphocyte 3 % (19-41); Metamyelocyte 1 % (0-1); Monocyte 13 % (0-10); Myelocyte 4 % (0-0); Neutrophil-Band 11 % (0-5); Neutrophil-Segmented 67 % (47-70); Platelet Estimate ADEQUATE (ADEQ); Polychromasia RARE; Promyelocyte 1 % (0-0)
[2022-10-15 06:53] LABS: Absolute Lymphocyte Count 1.23 X10^3/uL (0.83-4.51); Absolute Neutrophil Count 31.9 X10^3/uL (2.0-7.7); Lymphocyte # 1.23 X10^3/ul (0.83-4.51); Neutrophil # 31.92 X10^3/uL (2.7-7.7)
[2022-10-15 07:01] LABS: Hematocrit 17.7 % (37-47); POSITIVE COUNT YES
[2022-10-15 07:07] LABS: Hemoglobin 5.5 g/dL (12.0-15.0)
--- NOTE | 2022-10-15 07:27 | PN.HOSP_ITS ---
Reason for Visit Reason for Visit: Diagnoses Elevated white blood cell count, unspecified (10/08/22) Other disorders of bilirubin metabolism (10/08/22) Acute kidney failure, unspecified (10/08/22) Hepatomegaly, not elsewhere classified (10/08/22) Unspecified jaundice (10/08/22) Somnolence (10/08/22) Elevation of levels of liver transaminase levels (10/08/22) Subjective Subjective Pt complains of worsening abdominal pain. Nursing notes melena overnight. Objective Data Objective Data Vital Signs: Vital Signs Temp Pulse Resp BP Pulse Ox O2 Del Method O2 Flow Rate 36.8 C 105 H 18 97/57 L 95 Nasal Cannula 2 10/15/22 07:12 10/15/22 07:12 10/15/22 07:12 10/15/22 07:12 10/15/22 07:12 10/15/22 07:12 10/15/22 07:12 Oxygen Flow Rate (L/min) [ 3 AMBULATING with Oxygen #2] Oxygen Flow Rate (L/min) [At 0 REST on Room Air] Oxygen Flow Rate (L/min) [At 2 REST with Oxygen] Oxygen Flow Rate (L/min) [ 2 AMBULATING with Oxygen #1] Oxygen Flow Rate (L/min) 2 Oxygen Delivery Method Nasal Cannula Weight: 99.2 kg Body Mass Index (BMI) 35.3 Intake & Output: Intake and Output for Last 24 Hours 10/13/22 10/14/22 10/15/22 23:59 23:59 23:59 Intake Total 2305 / 2305 2612.92 / 2662.92 1123.75 / 1123.75 Output Total 1250 / 1250 300 / 300 Balance 1055 / 1055 2312.92 / 2362.92 1123.75 / 1123.75 Lab / Micro Data 10/15/22 06:55 10/15/22 05:10 Labs: Laboratory Results - last 24 hr 10/13/22 16:30: Diff Path Review Reviewed 10/14/22 05:11: ESR 55 H 10/14/22 12:53: Urine Color Yellow, Urine Clarity Clear, Urine pH 5.0, Ur Specific [place] 1.010, Urine Protein 30 H, Urine Glucose (UA) Normal, Urine Ketones Negative, Urine Occult Blood 10 H, Urine Nitrite Negative, Urine Bilirubin 1 H, Urine Urobilinogen Normal, Ur Leukocyte Esterase 500 H, Urine RBC 0-5 SEEN, Urine WBC 25-50 SEEN, Ur Squamous Epith Cells 0-5 SEEN, Urine Bacteria 1+, Urine Mucus 0 SEEN 10/15/22 05:10: WBC 40.9 H*, RBC 1.88 L, Hgb 5.7 L*, Hct 17.7 L, MCV 94.1, MCH 30.3, MCHC 32.2, RDW Std Deviation 60.6 H, RDW Coeff of Gisella 17.7 H, Plt Count 221, MPV 12.8 H, Neut % (Auto) Not Reportable, Absolute Neuts (auto) 31.9 H, Absolute Lymphs (auto) 1.23, Total Counted 100, Neutrophils % (Manual) 67, Band Neutrophils % 11 H, Lymphocytes % (Manual) 3 L, Monocytes % (Manual) 13 H, Metamyelocytes % 1, Myelocytes % 4 H, Promyelocytes % 1 H, Diff Path Review July, Platelet Estimate ADEQUATE, Polychromasia RARE, Sodium 140, Potassium 4.6, Chloride 114 H, Carbon Dioxide 16.0 L, Anion Gap 10, BUN 51 H, Creatinine 2.90 H , Estim Creat Clear Calc 17.86, Est GFR (MDRD) Af Amer 21 L, Est GFR (MDRD) Non- Af 17 L, BUN/Creatinine Ratio 17.6, Glucose 143 H, Calcium 8.2 L, Total Foreign irubin 1.40 H, AST 232 H, ALT 118 H, Alkaline Phosphatase 126 H, Total Protein 4.3 L, Albumin 1.6 L, Globulin 2.7, Albumin/Globulin Ratio 0.6 L 10/15/22 06:55: Hgb 5.5 L*, Hct 17.7 L, Crossmatch See Detail Micro: Microbiology 10/12/22 19:55 Mucosa - Nasopharyngeal Rapid RSV (DFA) - Final 10/12/22 19:55 Nasal Secretion SARS-CoV-2 & FLU Antigen (Rapid) - Final 10/10/22 14:55 Blood Culture (Wb) - Right Hand Blood Culture - Preliminary No growth in 48 hours. 10/10/22 15:00 Blood Culture (Wb) - Anticubital Right Blood Culture - Preliminary No growth in 48 hours. ABG Data ABG results: ABG 10/14/22 13:39 Specimen Type ART Sample Site L Radial pH 7.24 L Bicarbonate Actual 18.0 L Total CO2 19 Base Excess -9 L O2 Saturation 91 L ABG pCO2 41.8 ABG pO2 71 L Charbel Test Positive O2 Delivery Device Cannula Liter Flow 2.0 Radiography Diagnostic Testing: Radiology Impression Chest CT 10/14/22 07:46 IMPRESSION: Findings suggest some bibasilar atelectasis and/or infiltrates with tiny pleural effusions. 9.5 mm noncalcified nodule in the medial aspect of the lingular segment of the left upper lobe. Ascites. Mass is seen in the left lobe of the liver. Diffuse thickening of the stomach with increased markings in the surrounding peripancreatic fat. A mass lesion cannot be excluded. Small right renal cyst. Electronically Signed: Dayton Maldonado MD at 9:24 EDT , Physical Exam Const alert Constitutional Narrative: uncomfortable. non-toxic. HEENT head/scalp atraumatic and moist oral mucous membranes Resp normal respiratory effort, no retractions, no use of accessory muscles and clear to auscultation bilaterally Cardio regular rate, regular rhythm, S1 normal heart sound and S2 normal heart sound GI GI Narrative: TTP, non distended. Extremity Extremity Narrative: non-pitting LE edema. Skin Skin Narrative: ecchymosis LLQ Psych affect normal Assessment & Plan Assessment/Plan (1) Liver mass: PLAN: Data: * Outpt CT .3 cm mass central hilar and location, cause for obstructive jaundice, suspicion for cholangiocarcinoma: It shows infiltrative, irregular mass about 4.3 cm around the hilum of liver with peripheral biliary dilatation. As reported right portal vein patent left portal vein not seen but with collateral vessels. Mild compression of main portal vein. * MRCP 10/08: 3.3 cm ill-defined mass in segment 2/4 B of the liver consistent with known cholangiocarcinoma. There is associated moderate obstruction of the intrahepatic biliary ducts. No evidence of metastatic disease in the abdomen. * ERCP 10/10: ERCP on 10/09 shows biliary tumor at bifurcation of right and left hepatic ducts. Biliary tract obstruction secondary to mass and bifurcation of right and left hepatic ducts. Multiple severe biliary strictures, malignant appearing. CHD severely dilated secondary to stricture. Common hepatic duct and left main hepatic duct was successfully dilated. Cells for cytology and biopsy was performed at hepatic duct bifurcation. * CA 19-9 elevated (462), concerning for cholangiocarcinoma. CEA WNL (2.8), AFP 4.1 * Biopsy shows adenocarcinoma. * CT chest shows ATX. Ascites. Mass in left lobe of the liver. Diffuse thickening of the stomach w increased marking in the surrounding peripancreatic fat. 10/14: DW Dr. Stokes, he stent pathology out for additional staging. He recommends a CT of chest with contrast for further staging. He plans to see the patient on 10/16, inpt or outpt. Pt will need a bone scan, but that can be d eferred for now. (2) Acute blood loss anemia: PLAN: Noted melena. Enoxaparin dc'd T+C for 2 units BRITANY Silvestre: plan for endoscopy. Also discussed the patient being on ther apeutic enoxaparin for portal vein compression. No indication for anticoagulation just for that w/o portal vein thrombosis. Check CT to eval for RPH. Start IV PPI. (3) EVELIA (acute kidney injury): PLAN: Acutely worse Suspect ATN given ABLA IVF Avoid nephrotoxic agents. (4) Leukocytosis: QUALIFIERS: Leukocytosis type: unspecified Qualified Code(s): D72.829 - Elevated white blood cell count, unspecified PLAN: unclear significance on pip/tazo Blood cultures negative. Encouraged PEP (5) Somnolence: PLAN: 10/14: dozing off easily today, but easily awakes and is appropriate. Dc'd narcotics. unknown if underlying ABEBE. DC'd scheduled metoclopramide and sertraline. ABG on 10/14 was unremarkable. Previous ammonia was normal (6) Transaminitis: PLAN: acutely worse: AST went from 22 to 232, ALT from 37 to 118. Bilirubin still trending down from 1.7 to 1.4 Unclear etiology. May be from ischemic hepatitis from anemia. PLAN: Plan Chronic conditions: * CAD, two-vessel disease: She had work-up in [facility] in July 2022. Patient currently on baby aspirin and beta-justo. Medications continued. Try to obtain medical record from [facility]. * GERD on PPI: Continue PPI. * Left upper lobe pulmonary nodule: CT abdomen and pelvis showed multiple b ilateral lung base pulmonary nodules, largest right anteriorly 1.[address] Guerrero and he mentioned left upper lobe nodule and advised to repeat CT chest in 3 months in clinic visit on August 2022 * Dyslipidemia degenerative osteoarthritis, History of right TKR and morbid obesity: Her BMI is 35.3 kg/m?: Hold atorvastatin in view of increased total bilirubin and liver chemistry. DVT prophylaxis, SCDs Given tenuous status, and high risk for decompensation, will transfer to ICU for closer monitoring. BRITANY pt's dtr. Charges/Coding Visit Charges Inpatient E&M: 10723 Subs Hosp L3
--- NOTE | 2022-10-15 07:48 | CT_ITS ---
STUDY: CT ABDOMEN AND PELVIS WITHOUT CONTRAST REASON FOR EXAM: Female, 67 years old. Acute blood loss anemia -- concern for retroperitoneal hematoma. RADIATION DOSAGE (If Supplied By Facility): CTDIvol = ( 20.68 ) mGy, DLP = ( 1234.7 ) mGycm TECHNIQUE: Transaxial images were obtained from the dome of the diaphragm to the symphysis pubis without oral contrast, and without intravenous contrast. Sagittal and coronal images were reconstructed. Individualized dose optimization techniques were used for this CT. COMPARISON: None. FINDINGS: Mild degree of bibasilar atelectasis and/or infiltrates. There is a 9.5 mm noncalcified nodule in the medial aspect of the lingular segment of the left upper lobe. Coronary artery calcification. Stable heterogeneous mass in the left lobe of the liver with mildly dilated biliary ducts in the left lobe. Perihepatic fluid. The gallbladder is filled with the contrast. A biliary stent is seen in situ. Normal spleen. Perisplenic fluid. Heterogeneous soft tissue mass is seen in the region of the gastroepiploic ligament and head of the pancreas. There is evidence of hemoperitoneum. Normal bilateral adrenal glands. Normal right kidney. Normal left kidney. Normal visualized stomach. Normal small intestine. Normal colon. The appendix is visualized and appears normal. Normal abdominal aorta. Normal inferior vena cava. There is a 9 cm x 7.5 cm x 9.1 cm hematoma with a fluid fluid level in the left side of the abdomen within the peritoneum. This is well loculated. This is in keeping with the hematoma. Normal urinary bladder. Normal abdominal wall. There are diffuse degenerative changes of the visualized lumbar spine. CT/Abdomen/Pelvis without Cont IMPRESSION: Hemoperitoneum. 9 cm x 7.5 cm x 9.1 cm hematoma with a fluid fluid level in the left side of the abdomen within the peritoneum. This is in keeping with a hematoma. Mass in the left lobe of the liver with dilated ducts. Mass in the region of the head of the pancreas as well as the gastroepiploic ligament. Electronically Signed: Dayton Maldonado MD at 8:58 EDT ,
[2022-10-15] MEDS: Ondansetron 4 MG/2 ML Vial IV (08:01)
[2022-10-15] MEDS: 0.9% Saline Lock 10 ML Syringe IV (08:01)
[2022-10-15 08:20] LABS: International Normalized Ratio 2.1; Prothrombin Time (Protime)PT. 23.6 SECONDS (11.7-14.9)
[2022-10-15 09:23] LABS: Bedside Glucose 88 mg/dL (74-106)
[2022-10-15] MEDS: 0.9% Normal Saline 1,000 ML 150 ML IV (09:56)
[2022-10-15] MEDS: fentaNYL 100 MCG/2 ML Ampul 25 MCG IV (09:57)
[2022-10-15] MEDS: NYSTATIN 500,000 UNIT/5 ML UDC 500000 UNIT PO (10:00)
--- NOTE | 2022-10-15 10:03 | CON.PCM.CC_ITS ---
Assessment & Plan Assessment/Plan (1) Hemorrhagic shock: (2) Acute blood loss anemia: (3) Obstructive jaundice due to cancer: (4) Cholangiocarcinoma: PLAN: Plan RECOMMENDATIONS: 1. Aggressive volume repletion with blood and fluids 2. Challenge with fentanyl 3. Wean oxygen as tolerated 4. Initiate pressors if necessary. Will need a central line 5. Potential transfer to tertiary center for surgical evaluation 6. Transfuse FFP. Possible protamine IMPRESSIONS: 1. Hemorrhagic shock secondary to acute blood loss anemia Patient with significant drop in hemoglobin. CT scan of the chest abdomen and pelvis is suggestive of significant hematoma around the liver and peritoneum. Surgery has been consulted. Patient may require exploratory laparotomy. Patient will be given aggressive resuscitation with blood and FFP. Defer to GI about possible protamine. Patient may require pressors in the interim 2. Metabolic encephalopathy Patient with significant acidosis on ABG. Patient's ammonia levels have been okay previously, but transaminitis is significantly worse today compared to previous. Patient is protecting her airway at this time, but cannot exclude the need for intubation to help with respiratory drive. Did attempt to discuss CODE STATUS with the patient's family and patient, but no decision has been made at this time. 3. Transaminitis secondary to cholangiocarcinoma Patient did have a significant increase in liver enzymes today, likely secondary to problem #1. Patient also has a left upper lobe nodule suggestive of possible metastatic disease. Agree with empiric antibiotics as patient is at risk for spontaneous bacterial peritonitis 4. GERD/chronic pain syndrome/obesity/CAD Complicates care, management, recovery and prognosis. Patient is on PPI. Patient would be at risk for sleep apnea given body habitus, age and reported snoring. Hold on BiPAP secondary to mental status. Patient is on aspirin and beta-justo. Beta-justo will be held. TIME: 35 minutes critical care time spent addressing patient's hemorrhagic shock, metabolic encephalopathy, transaminitis, review of all data and collaboration with care team HPI Consult Data Date of Consult: 10/15/22 HPI Narrative Reason for Consultation: Hypotension HPI Narrative: ASIYA SCOTT is a 67 F, with past medical history listed below, who presented to [facility] on 10/08/2022 secondary to worsening abdominal pain and jaundice. Patient was noted to be saturating well on room air with a normal blood pressure in the ER. Patient subsequently was admitted to [facility] for work-up. Hemoglobin at that time was noted to be 16.2 with an INR of 1, creatinine of 1.09 and total bilirubin of 7.3. Over the course of the hospitalization, patient has had a work-up including an ERCP with sphincterotomy. Patient's findings are consistent with a cholangiocarcinoma. Patient was reportedly doing better until overnight. Patient's reported that approximately 2:30 in the morning she started to have significant abdominal pain. On labs this morning, patient was noted to have a hemoglobin of 5.5, significantly lower than previous results. Patient also noted to have hypotension and was transferred to the intensive care unit at approximately 8:30 AM. Multiple family members at the bedside. Patient did have a CT scan prior to transfer with results indicated below. Multiple discussions with the family, hospitalist and GI. Patient unable to provide a review of systems secondary to mental status at this time. Did attempt to address CODE STATUS, but did not receive any final information. [facility] Medical History Cholangiocarcinoma Constipation Diabetes mellitus GERD (gastroesophageal reflux disease) Hemorrhoids HLD (hyperlipidemia) Muscular pain Nicotine dependence Obstructive jaundice due to cancer Osteoarthritis Osteoarthritis of right knee Plantar fasciitis of right foot Home Medications omeprazole 40 mg capsule,delayed release 40 mg PO DAILY gerd 06/24/22 [History Last Taken Unknown] atorvastatin 40 mg tablet 40 mg PO DAILY cholesterol 09/01/22 [History Last Taken Unknown] glipizide 2.5 mg tablet, extended release 24 hr 2.5 mg PO DAILY lower blood sugars 09/01/22 [History Last Taken Unknown] metoprolol succinate 50 mg tablet,extended release 24 hr 25 mg PO DAILY htn 09/01/22 [History Last Taken Unknown] aspirin 81 mg tablet,delayed release (Adult Low Dose Aspirin) 81 mg PO DAILY blood thinner 10/08/22 [History Last Taken Unknown] Allergy/AdvReac Type Severity Reaction Status Date / Time No Known Allergies Allergy Verified 10/08/22 10:27 Family History Brother Bladder cancer Father Colon cancer Mother Heart disease Diabetes Surgical History History of tubal ligation S/P total knee arthroplasty Social History Smoking Status: Heavy Smoker (>10/day) alcohol intake: never substance use type: does not use Physical Exam Const alert Constitutional Narrative: uncomfortable. non-toxic. RASS +1. Jaundice. General Appearance: lethargic and ill appearing HEENT head/scalp atraumatic and moist oral mucous membranes Eyes Eyes Narrative: Scleral icterus noted. Neck supple Resp normal respiratory effort, no retractions, no use of accessory muscles and clear to auscultation bilaterally Cardio regular rhythm, S1 normal heart sound, S2 normal heart sound, no murmurs, no rub and no gallops Rate: tachycardic GI GI Narrative: Bladder scan with almost 500 cc in the urine. [place] placed with immediate return Palpation: tender RUQ and guarding Extremity General Extremity: edema Skin Skin Narrative: ecchymosis LLQ. Significant jaundice noted. Neuro moves all extremities Psych affect normal Medical Records Data Attestation: I reviewed the patient's medical records Lab / Micro Data Attestation: I reviewed the patient's lab results. 10/15/22 06:55 10/15/22 05:10 Labs: Laboratory Results - last 24 hr 10/13/22 16:30: Diff Path Review Reviewed 10/14/22 12:53: Urine Color Yellow, Urine Clarity Clear, Urine pH 5.0, Ur Specific [place] 1.010, Urine Protein 30 H, Urine Glucose (UA) Normal, Urine Ketones Negative, Urine Occult Blood 10 H, Urine Nitrite Negative, Urine Bilirubin 1 H, Urine Urobilinogen Normal, Ur Leukocyte Esterase 500 H, Urine RBC 0-5 SEEN, Urine WBC 25-50 SEEN, Ur Squamous Epith Cells 0-5 SEEN, Urine Bacteria 1+, Urine Mucus 0 SEEN 10/15/22 05:10: WBC 40.9 H*, RBC 1.88 L, Hgb 5.7 L*, Hct 17.7 L, MCV 94.1, MCH 30.3, MCHC 32.2, RDW Std Deviation 60.6 H, RDW Coeff of Gisella 17.7 H, Plt Count 221, MPV 12.8 H, Neut % (Auto) Not Reportable, Absolute Neuts (auto) 31.9 H, Absolute Lymphs (auto) 1.23, Total Counted 100, Neutrophils % (Manual) 67, Band Neutrophils % 11 H, Lymphocytes % (Manual) 3 L, Monocytes % (Manual) 13 H, Metamyelocytes % 1, Myelocytes % 4 H, Promyelocytes % 1 H, Diff Path Review May foll, Platelet Estimate ADEQUATE, Polychromasia RARE, Sodium 140, Potassium 4.6, Chloride 114 H, Carbon Dioxide 16.0 L, Anion Gap 10, BUN 51 H, Creatinine 2.90 H , Estim Creat Clear Calc 17.86, Est GFR (MDRD) Af Amer 21 L, Est GFR (MDRD) Non- Af 17 L, BUN/Creatinine Ratio 17.6, Glucose 143 H, Calcium 8.2 L, Total Bilirubin 1.40 H, AST 232 H, ALT 118 H, Alkaline Phosphatase 126 H, Total Protein 4.3 L, Albumin 1.6 L, Globulin 2.7, Albumin/Globulin Ratio 0.6 L 10/15/22 06:55: Hgb 5.5 L*, Hct 17.7 L, PT 23.6 H, INR 2.1, Blood Type A POSITIVE, Antibody Screen NEGATIVE, Crossmatch See Detail 10/15/22 09:05: POC Glucose 88 ABG Data ABG results: ABG 10/14/22 13:39 Specimen Type ART Sample Site L Radial pH 7.24 L Bicarbonate Actual 18.0 L Total CO2 19 Base Excess -9 L O2 Saturation 91 L ABG pCO2 41.8 ABG pO2 71 L Charbel Test Positive O2 Delivery Device Cannula Liter Flow 2.0 Attestation: I personally reviewed and interpreted this ABG as follows: (Acute metabolic acidosis without compensation and increased AA gradient) Radiology Impression Chest CT 10/14/22 07:46 IMPRESSION: Findings suggest some bibasilar atelectasis and/or infiltrates with tiny pleural effusions. 9.5 mm noncalcified nodule in the medial aspect of the lingular segment of the left upper lobe. Ascites. Mass is seen in the left lobe of the liver. Diffuse thickening of the stomach with increased markings in the surrounding peripancreatic fat. A mass lesion cannot be excluded. Small right renal cyst. Electronically Signed: Dayton Maldonado MD at 9:24 EDT , ADDENDUM: 10/15/22 0833 IMPRESSION: undefined Abdomen/Pelvis CT 10/15/22 07:48 IMPRESSION: Hemoperitoneum. 9 cm x 7.5 cm x 9.1 cm hematoma with a fluid fluid level in the left side of the abdomen within the peritoneum. This is in keeping with a hematoma. Mass in the left lobe of the liver with dilated ducts. Mass in the region of the head of the pancreas as well as the gastroepiploic ligament. Electronically Signed: Dayton Maldonado MD at 8:58 EDT , Charges/Coding Procedures Hospitalists Procedures: [id number] Critial Care 1st Hr
[2022-10-15 10:26] LABS: Bacteria 0 SEEN /hpf (None Seen); Mucous, Urine 0 SEEN /hpf (<or=2+); Red Blood Cells-Urine 0 SEEN /hpf (0-5); White Blood Cells 0 SEEN /hpf (0-5)
[2022-10-15 10:29] LABS: Color, Urine Yellow (Yellow); Glucose, Dipstick Normal (Normal); Ketone-Dipstick Negative (Negative); Leukocyte Esterase-Dipstick Negative /ul (Negative); Nitrite-Dipstick Negative (Negative); Occult Blood-Urine Negative /ul (Negative); Protein-Dipstick Negative (Negative); Urine Bilirubin Dipstick Negative (Negative); Urine Clarity Sl. Cloudy (Clear); Urine Urobilinogen Normal (Normal)
[2022-10-15] MEDS: 0.9% Normal Saline 1,000 ML 15 ML IV (10:29)
[2022-10-15 10:34] LABS: Squamous Epithelial Cells - UA 0-5 SEEN /hpf (5-10)
--- NOTE | 2022-10-15 10:41 | EX.PCM.CON.S ---
Assessment & Plan Assessment/Plan (1) Hemorrhagic shock: PLAN: I have been consulted in conjunction with Dr. Mendoza. I have reviewed my findings and discussed the patient with her. She will independently evaluate this patient herself. Patient has newly diagnosed cholangiocarcinoma with obstructive jaundice. She underwent an ERCP with stent placement, sphincterotomy, dilatations and biopsy on 10/09. Five days post-procedure has developed hemorrhagic shock due to development of hemoperitoneum and hematoma of the left upper abdomen. Unfortunately, surgical intervention is not an option at our facility. Patient needs immediate transfer to a tertiary facility for surgical intervention and stabilization. This was discussed with the patient's daughter's, who have chose patient to be transferred to [facility]. Patient's daughters have had the opportunity to ask and have questions answered. Patient's daughter's are agreeable with the plan. Thank you for allowing us to participate in this patient's care. (2) Cholangiocarcinoma: HPI Consult Data Date of Consult: 10/15/22 HPI Narrative Reason for Consultation: Hemoperitoneum HPI Narrative: ASIYA SCOTT, is a 67 F who presents to the ED on 10/08/22 at the recommendation of Dr. Silvestre for abnormal lab results. Patient has had intermittent generalized abdominal pain, bright yellow urine and jaundice. Patient had an MRCP complete don 10/08/22 which demonstrated 3.3 cm ill-defined mass in segment 2/4 B of the liver consistent with known cholangiocarcinoma. There is associated moderate obstruction of the intrahepatic biliary ducts. No evidence of metastatic disease in the abdomen. Patient had an ERCP by Dr. Silvestre on 10/09/22 which demonstrated biliary tumor of the bifurcation of the right and left hepatic ducts. Bleeding was noted in the ampulla. Heater probe was used for hemostasis. Biliary tract obstruction noted from tumor. Multiple malignant appearing biliary strictures were noted. Dilated common bile duct noted. Biliary tree was swept. Sludge, mucous and clots were found. Left main hepatic and hepatic bifurcation ducts were dilated successfully. Biopsy of the hepatic duct bifurcation was performed. Patient tolerated the procedure well. On 10/14/22, patient had noted intermittent umbilical abdominal pain. These symptoms progressed throughout the night of 10/14 in tot e morning of 10/15. Nursing staff a had noted patient passing melena overnight as well as overall decompensation. Patient was transferred to the ICU on 10/15. CT scan of the abdomen/pelvis was obtained this morning demonstrating Hemoperitoneum. 9 cm x 7.5 cm x 9.1 cm hematoma with a fluid fluid level in the left side of the abdomen within the peritoneum. This is in keeping with a hematoma. Mass in the left lobe of the liver with dilated ducts. Mass in the region of the head of the pancreas as well as the gastroepiploic ligament. General surgery was consulted. Patient was unable to provide any history. Patient's 3 daughters were in the room at the time of evaluation. [facility] Medical History Cholangiocarcinoma Constipation Diabetes mellitus GERD (gastroesophageal reflux disease) Hemorrhoids HLD (hyperlipidemia) Muscular pain Nicotine dependence Obstructive jaundice due to cancer Osteoarthritis Osteoarthritis of right knee Plantar fasciitis of right foot Home Medications omeprazole 40 mg capsule,delayed release 40 mg PO DAILY gerd 06/24/22 [History Last Taken Unknown] atorvastatin 40 mg tablet 40 mg PO DAILY cholesterol 09/01/22 [History Last Taken Unknown] glipizide 2.5 mg tablet, extended release 24 hr 2.5 mg PO DAILY lower blood sugars 09/01/22 [History Last Taken Unknown] metoprolol succinate 50 mg tablet,extended release 24 hr 25 mg PO DAILY htn 09/01/22 [History Last Taken Unknown] aspirin 81 mg tablet,delayed release (Adult Low Dose Aspirin) 81 mg PO DAILY blood thinner 10/08/22 [History Last Taken Unknown] Allergy/AdvReac Type Severity Reaction Status Date / Time No Known Allergies Allergy Verified 10/08/22 10:27 Family History Brother Bladder cancer Father Colon cancer Mother Heart disease Diabetes Surgical History History of tubal ligation S/P total knee arthroplasty Social History Smoking Status: Heavy Smoker (>10/day) alcohol intake: never substance use type: does not use Physical Exam Const Constitutional Narrative: Patient laying in bed and writhing in pain, unable to verbally answer questions due to pain General Appearance: lethargic and ill appearing Exam Limitations: altered mental status GI GI Narrative: Abdomen- obese, soft, guarding and tenderness of the RUQ. Ecchymosis noted of the LLQ. Lab / Micro Data 10/15/22 06:55 10/15/22 05:10 Labs: Laboratory Results - last 24 hr 10/13/22 16:30: Diff Path Review Reviewed 10/14/22 12:53: Urine Color Yellow, Urine Clarity Clear, Urine pH 5.0, Ur Specific [place] 1.010, Urine Protein 30 H, Urine Glucose (UA) Normal, Urine Ketones Negative, Urine Occult Blood 10 H, Urine Nitrite Negative, Urine Bilirubin 1 H, Urine Urobilinogen Normal, Ur Leukocyte Esterase 500 H, Urine RBC 0-5 SEEN, Urine WBC 25-50 SEEN, Ur Squamous Epith Cells 0-5 SEEN, Urine Bacteria 1+, Urine Mucus 0 SEEN 10/15/22 05:10: WBC 40.9 H*, RBC 1.88 L, Hgb 5.7 L*, Hct 17.7 L, MCV 94.1, MCH 30.3, MCHC 32.2, RDW Std Deviation 60.6 H, RDW Coeff of Gisella 17.7 H, Plt Count 221, MPV 12.8 H, Neut % (Auto) Not Reportable, Absolute Neuts (auto) 31.9 H, Absolute Lymphs (auto) 1.23, Total Counted 100, Neutrophils % (Manual) 67, Band Neutrophils % 11 H, Lymphocytes % (Manual) 3 L, Monocytes % (Manual) 13 H, Metamyelocytes % 1, Myelocytes % 4 H, Promyelocytes % 1 H, Diff Path Review May foll, Platelet Estimate ADEQUATE, Polychromasia RARE, Sodium 140, Potassium 4.6, Chloride 114 H, Carbon Dioxide 16.0 L, Anion Gap 10, BUN 51 H, Creatinine 2.90 H, Estim Creat Clear Calc 17.86, Est GFR (MDRD) Af Amer 21 L, Est GFR (MDRD) Non-Af 17 L, BUN/Creatinine Ratio 17.6, Glucose 143 H, Calcium 8.2 L, Total Bilirubin 1.40 H, AST 232 H, ALT 118 H, Alkaline Phosphatase 126 H, Total Protein 4.3 L, Albumin 1.6 L, Globulin 2.7, Albumin/Globulin Ratio 0.6 L 10/15/22 06:55: Hgb 5.5 L*, Hct 17.7 L, PT 23.6 H, INR 2.1, Blood Type A POSITIVE, Antibody Screen NEGATIVE, Crossmatch See Detail 10/15/22 09:05: POC Glucose 88 10/15/22 10:15: Urine Color Yellow, Urine Clarity Sl. Cloudy, Urine pH 6.0, Ur Specific [place] 1.010, Urine Protein Negative, Urine Glucose (UA) Normal, Urine Ketones Negative, Urine Occult Blood Negative, Urine Nitrite Negative, Urine Bilirubin Negative, Urine Urobilinogen Normal, Ur Leukocyte Esterase Negative, Urine RBC 0 SEEN, Urine WBC 0 SEEN, Ur Squamous Epith Cells 0-5 SEEN, Urine Bacteria 0 SEEN, Urine Mucus 0 SEEN ABG Data ABG results: ABG 10/14/22 13:39 Specimen Type ART Sample Site L Radial pH 7.24 L Bicarbonate Actual 18.0 L Total CO2 19 Base Excess -9 L O2 Saturation 91 L ABG pCO2 41.8 ABG pO2 71 L Charbel Test Positive O2 Delivery Device Cannula Liter Flow 2.[address] 10/14/22 07:46 IMPRESSION: Findings suggest some bibasilar atelectasis and/or infiltrates with tiny pleural effusions. 9.5 mm noncalcified nodule in the medial aspect of the lingular segment of the left upper lobe. Ascites. Mass is seen in the left lobe of the liver. Diffuse thickening of the stomach with increased markings in the surrounding peripancreatic fat. A mass lesion cannot be excluded. Small right renal cyst. Electronically Signed: Dayton Maldonado MD at 9:24 EDT , ADDENDUM: 10/15/22 0833 IMPRESSION: undefined Abdomen/Pelvis CT 10/15/22 07:48 IMPRESSION: Hemoperitoneum. 9 cm x 7.5 cm x 9.1 cm hematoma with a fluid fluid level in the left side of the abdomen within the peritoneum. This is in keeping with a hematoma. Mass in the left lobe of the liver with dilated ducts. Mass in the region of the head of the pancreas as well as the gastroepiploic ligament. Electronically Signed: Dayton Maldonado MD at 8:58 EDT , Charges/Coding Visit Charges Office Visits / Consults: [id number] IP Consult L4
[2022-10-15 10:42] LABS: Urine Sodium 76 mmol/L (Not Establ.)
[2022-10-15] MEDS: fentaNYL 100 MCG/2 ML Ampul 50 MCG IV (11:48)
--- NOTE | 2022-10-15 12:08 | PCM.OP.BLANK ---
Operative Report Date of Procedure: 10/15/22 Central line placement procedure note Indication: IV access/hemodynamic instability/vasoactive medications Procedure: A time-out was completed to verify correct patient, indication, medication allergies, procedure, coagulation studies, informed consent signed, and equipment needed. The patient was placed in the supine position for a central line placement to the rt IJ vein. The patients rt neck was prepped using chlorhexidine and a full body sterile drape was applied. 1% lidocaine was used to anesthetize the surrounding skin. A 7fr 16 cm blue guard triple lumen catheter introduced into the internal jugular vein using the modified Seldinger technique with the assistance of ultrasound. The catheter was threaded smoothly over the guidewire, the guidewire was removed easily, nonpulsatile blood returned. All ports were aspirated of air and flushed with sterile saline. The catheter was sutured in place and covered with an occlusive dressing impregnated with chlorhexidine. Post-procedure: The patient tolerated the procedure well. Vital signs remained stable. EBL 3cc. No complications. Chest X Ray ordered to confirm tip placement and the absence of pneumothorax. Procedures Hospitalists Procedures: [id number] Insert Non-tunnel CV Cath
--- NOTE | 2022-10-15 12:15 | RAD_ITS ---
STUDY: X-RAY CHEST REASON FOR EXAM: Female, 67 years old. Right CVC insertion TECHNIQUE: Single AP portable view of the chest. COMPARISON: Comparison is made with prior study October 12, 2022. FINDINGS: A right-sided central venous catheter has been placed with the tip at the junction of the superior vena cava and right atrium. EKG electrodes are seen. Persistent increased markings at the lung bases suggestive of bibasilar atelectasis. There has been improvement as compared to prior study. Blunting of both costophrenic angles. Normal size heart. Normal mediastinum and nancy. Normal visualized pulmonary arteries. Normal visualized aortic arch and descending thoracic aorta. There are degenerative changes of the visualized thoracic spine. Normal visualized ribs, clavicles, and shoulders. There is no demonstrated abnormality of the visualized soft tissue structures of the upper abdomen. RAD/CXR for Line Placement IMPRESSION: The tip of the central catheter is at the junction of superior caval right atrium. Persistent bibasilar atelectasis with blunting of both concerning angles. Electronically Signed: Dayton Maldonado MD at 12:46 EDT ,
--- NOTE | 2022-10-15 12:46 | CHAPLAIN ---
Type of Pastoral Visit ___ Initial Visit _x__ Follow-up Visit ___ On-call Visit ___ General Patient Visit ___ Spiritual Assessment ___ Family Conference ___ Bereavement ___ Rapid Response ___ Code Blue ___ Other (describe below) Pastoral Care Referral From ___ Patient _x__ Family _x__ Nurse ___ Physician ___ [place] ___ Behavioral Specialist ___ Other (describe below) Sacrament/Intervention _x__ Active listening ___ Anointing ___ Quaker ___ Bereavement ___ Communion ___ Harriet exploration ___ ___ Life review _x__ Prayer ___ Reconciliation ___ Sacrament of Sick _x__ Supportive presence ___ Wedding ___ Other (describe below) Pastoral Comments follow up with this patient who has been moved to ICU and waiting transfer out to [facility]; met with three daughters in the room to offer presence, support, and prayers; family is tearful and also determined to get the best care for pt and best outcome; later met with spousein the waiting room to offer support and presence; family asks for prayers to continue; will follow up as needed and as pt is available
--- NOTE | 2022-10-15 13:38 | DS.PCM_ITS ---
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 EVELIA. EMERGENT Consult: No Notified: Yes Date Notified: 10/15/22 Time Notified: 08:19 Method of Notification: Text 10/15/22 09:32 Consult: General Surgery Routine Consulting Provider: Char Mendoza Reason for Consult: hemoperitoneum EMERGENT Consult: No Notified: Yes Date Notified: 10/15/22 Time Notified: 09:33 Method of Notification: Text Reason For Visit: OBSTRUCTIVE CHOLANGIOCARCINOMA Diagnosis Discharge Diagnosis (1) Hemorrhagic shock: Status: Acute Code(s): R57.8 - Other shock Plan: 2/2 hemoperitoneum transfused 4 units PRBCs and FFP On Levophed and vasopressin DW Dr. Mendoza of general surgery, she recommended transfer to tertiary facility for IR. Family requested [facility]. I discussed with Dr. Padilla at [facility] about the hemorrhagic shock and hemoperitoneum. He recommended additionally transfusing platelets in addition to blood and FFP; and starting vasopressin. RIJ TLC placed to administer vasoactive medications. (2) Hemoperitoneum: Status: Acute Code(s): K66.1 - Hemoperitoneum Plan: Unclear source. Complicated by enoxaparin. TF to [facility] for IR/surgical eval. No CTA performed here given EVELIA Pt had been on 100mg of enoxaparin since the (mostly BID, but did receive it daily on the and ). Last dose was 10/14 at 2223. (3) Cholangiocarcinoma: Status: Acute Code(s): C22.1 - Intrahepatic bile duct carcinoma Plan: * Outpt CT .3 cm mass central hilar and location, cause for obstructive jaundice, suspicion for cholangiocarcinoma: It shows infiltrative, irregular mass about 4.3 cm around the hilum of liver with peripheral biliary dilatation. As reported right portal vein patent left portal vein not seen but with collateral vessels. Mild compression of main portal vein. * MRCP 10/08: 3.3 cm ill-defined mass in segment 2/4 B of the liver consistent with known cholangiocarcinoma. There is associated moderate obstruction of the intrahepatic biliary ducts. No evidence of metastatic disease in the abdomen. * ERCP 10/10: ERCP on 10/09 shows biliary tumor at bifurcation of right and left hepatic ducts. Biliary tract obstruction secondary to mass and bifurcation of right and left hepatic ducts. Multiple severe biliary strictures, malignant appearing. CHD severely dilated secondary to stricture. Common hepatic duct and left main hepatic duct was successfully dilated. Cells for cytology and biopsy was performed at hepatic duct bifurcation. * CA 19-9 elevated (462), concerning for cholangiocarcinoma. CEA WNL (2.8), AFP 4.1 * Biopsy shows adenocarcinoma. * CT chest shows ATX. Ascites. Mass in left lobe of the liver. Diffuse thickening of the stomach w increased marking in the surrounding peripancreatic fat. * Additional pathology testing sent off by Dr. Stokes. (4) Acute blood loss anemia: Status: Acute Code(s): D62 - Acute posthemorrhagic anemia Plan: as above for problems 1+2 Hemoglobin had been steadily dropping from admission. Unclear if she was bleeding earlier. (5) EVELIA (acute kidney injury): Status: Acute Code(s): N17.9 - Acute kidney failure, unspecified Plan: Likely d/t ischemic ATN from ABLA/shock +/- contrast nephropathy as pt did have a CT w contrast on the 10/14 FENa 4.48%. on IVF (6) Transaminitis: Status: Acute Code(s): R74.01 - Elevation of levels of liver transaminase levels Plan: acutely worse: AST went from 22 to 232, ALT from 37 to 118. Bilirubin still trending down from 1.7 to 1.4 Unclear etiology. May be from ischemic hepatitis from anemia and shock (7) Leukocytosis: Status: Chronic Code(s): D72.829 - Elevated white blood cell count, unspecified Qualifiers: Leukocytosis type: unspecified Qualified Code(s): D72.829 - Elevated white blood cell count, unspecified Plan: no clear source of infection on empiric pip/tazo could be reactive from hemoperitoneum. infectious work up thus far negative. Plan Complicating chronic conditions: * CAD, two-vessel disease: She had work-up in [facility] in July 2022. Patient currently on baby aspirin and beta-justo. Medications continued. Try to obtain medical record from [facility]. * GERD on PPI: Continue PPI. * Left upper lobe pulmonary nodule: CT abdomen and pelvis showed multiple bilateral lung base pulmonary nodules, largest right anteriorly 1.[address] Guerrero and he mentioned left upper lobe nodule and advised to repeat CT chest in 3 months in clinic visit on August 2022 * Dyslipidemia degenerative osteoarthritis, History of right TKR and morbid obesity: Her BMI is 35.3 kg/m?: Hold atorvastatin in view of increased total bilirubin and liver chemistry. Disposition: patient to be life-flighted to [facility]. Condition is critical. Medications at Discharge Home Medications omeprazole 40 mg capsule,delayed release 40 mg PO DAILY gerd 06/24/22 atorvastatin 40 mg tablet 40 mg PO DAILY cholesterol 09/01/22 glipizide 2.5 mg tablet, extended release 24 hr 2.5 mg PO DAILY lower blood suga rs 09/01/22 metoprolol succinate 50 mg tablet,extended release 24 hr 25 mg PO DAILY htn 09/01/22 aspirin 81 mg tablet,delayed release (Adult Low Dose Aspirin) 81 mg PO DAILY blood thinner 10/08/22 Hospital Course Procedures Central line placement and - (ERCP) Summary of Care Provided Minutes Spent on Discharge: 70 Hospital Course: Patient admitted 10/[address] showed compression of main portal vein and irregular mass in the liver. She was seen by GI and underwent an ERCP on the that showed a biliary tumor at the bifurcation of the right left hepatic ducts, biliary strictures. Biopsy was performed and she did have bleeding with the procedure. Patient was started on therapeutic enoxaparin for portal vein compression. Subsequently, she developed abdominal pain and leukocytosis. Emprically, she was started on pip/tazo. Infectious work up remained negative. Pt also had somnolence during her hospitalization. Concern was iatrogenic, so narcotics, reglan and sertaline were stopped. During her hospitalization, her hemoglobin trended down. On 10/15 it was 5.5 She was on the low-end normal BP. Enoxaparin was discontinued. It was reported that she was having melena. GI was contacted and EGD was going to be perfomed, however, CT showed hemoperitoneum. She was ordered PRBCs, FFP and platelets. Subsequently her BP dropped and she required Levophed and later started on Vasopressin (recommendation of trauma surgeon at [facility]). I discussed the case with Dr. Mendoza, who recommend transfer to tertiary facility. Family requested [facility]. I spoke with Dr. Padilla of trauma at [facility] about the case. Patient was accepted. Patient did have central line placed here before transfer. Life flight arrived and took patient to [facility]. Weight / BMI Weight Weight: 99.2 kg Body Mass Index (BMI) 35.3 ABG / Lab / Microbiology Data 10/15/22 06:55 10/15/22 05:10 Laboratory: Laboratory Results - last 24 hr 10/14/22 12:53: Urine Color Yellow, Urine Clarity Clear, Urine pH 5.0, Ur Specific [place] 1.010, Urine Protein 30 H, Urine Glucose (UA) Normal, Urine Ketones Negative, Urine Occult Blood 10 H, Urine Nitrite Negative, Urine Bilirubin 1 H, Urine Urobilinogen Normal, Ur Leukocyte Esterase 500 H, Urine RBC 0-5 SEEN, Urine WBC 25-50 SEEN, Ur Squamous Epith Cells 0-5 SEEN, Urine Bacteria 1+, Urine Mucus 0 SEEN 10/15/22 05:10: WBC 40.9 H*, RBC 1.88 L, Hgb 5.7 L*, Hct 17.7 L, MCV 94.1, MCH 30.3, MCHC 32.2, RDW Std Deviation 60.6 H, RDW Coeff of Gisella 17.7 H, Plt Count 221, MPV 12.8 H, Neut % (Auto) Not Reportable, Absolute Neuts (auto) 31.9 H, Absolute Lymphs (auto) 1.23, Total Counted 100, Neutrophils % (Manual) 67, Band Neutrophils % 11 H, Lymphocytes % (Manual) 3 L, Monocytes % (Manual) 13 H, M etamyelocytes % 1, Myelocytes % 4 H, Promyelocytes % 1 H, Diff Path Review July, Platelet Estimate ADEQUATE, Polychromasia RARE, Sodium 140, Potassium 4.6, Chloride 114 H, Carbon Dioxide 16.0 L, Anion Gap 10, BUN 51 H, Creatinine 2.90 H , Estim Creat Clear Calc 17.86, Est GFR (MDRD) Af Amer 21 L, Est GFR (MDRD) Non- Af 17 L, BUN/Creatinine Ratio 17.6, Glucose 143 H, Calcium 8.2 L, Total Bilirubin 1.40 H, AST 232 H, ALT 118 H, Alkaline Phosphatase 126 H, Total Protein 4.3 L, Albumin 1.6 L, Globulin 2.7, Albumin/Globulin Ratio 0.6 L 10/15/22 06:55: Hgb 5.5 L*, Hct 17.7 L, PT 23.6 H, INR 2.1, Blood Type A POSIT DESIREE, Antibody Screen NEGATIVE, Crossmatch See Detail 10/15/22 06:59: Crossmatch See Detail 10/15/22 09:05: POC Glucose 88 10/15/22 10:15: Urine Color Yellow, Urine Clarity Sl. Cloudy, Urine pH 6.0, Ur Specific [place] 1.010, Urine Protein Negative, Urine Glucose (UA) Normal, Urine Ketones Negative, Urine Occult Blood Negative, Urine Nitrite Negative, Urine Bilirubin Negative, Urine Urobilinogen Normal, Ur Leukocyte Esterase Negative, Urine RBC 0 SEEN, Urine WBC 0 SEEN, Ur Squamous Epith Cells 0-5 SEEN, Urine Bacteria 0 SEEN, Urine Mucus 0 SEEN, Ur Random Sodium 76, Urine Creatinine 31.50 Microbiology: Microbiology 10/12/22 19:55 Mucosa - Nasopharyngeal Rapid RSV (DFA) - Final 10/12/22 19:55 Nasal Secretion SARS-CoV-2 & FLU Antigen (Rapid) - Final 10/10/22 14:55 Blood Culture (Wb) - Right Hand Blood Culture - Preliminary No growth in 48 hours. 10/10/22 15:00 Blood Culture (Wb) - Anticubital Right Blood Culture - Preliminary No growth in 48 hours. ABG: ABG 10/14/22 13:39 Specimen Type ART Sample Site L Radial pH 7.24 L Bicarbonate Actual 18.0 L Total CO2 19 Base Excess -9 L O2 Saturation 91 L ABG pCO2 41.8 ABG pO2 71 L Charbel Test Positive O2 Delivery Device Cannula Liter Flow 2.0 Radiography Diagnostic Testing: Radiology Impression Chest CT 10/14/22 07:46 IMPRESSION: Findings suggest some bibasilar atelectasis and/or infiltrates with tiny pleural effusions. 9.5 mm noncalcified nodule in the medial aspect of the lingular segment of the left upper lobe. Ascites. Mass is seen in the left lobe of the liver. Diffuse thickening of the stomach with increased markings in the surrounding peripancreatic fat. A mass lesion cannot be excluded. Small right renal cyst. Electronically Signed: Dayton Maldonado MD at 9:24 EDT , ADDENDUM: 10/15/22 0833 IMPRESSION: undefined Abdomen/Pelvis CT 10/15/22 07:48 IMPRESSION: Hemoperitoneum. 9 cm x 7.5 cm x 9.1 cm hematoma with a fluid fluid level in the left side of the abdomen within the peritoneum. This is in keeping with a hematoma. Mass in the left lobe of the liver with dilated ducts. Mass in the region of the head of the pancreas as well as the gastroepiploic ligament. Electronically Signed: Dayton Maldonado MD at 8:58 EDT , Chest X-Ray 10/15/22 12:15 IMPRESSION: The tip of the central catheter is at the junction of superior caval right atrium. Persistent bibasilar atelectasis with blunting of both concerning angles. Electronically Signed: Dayton Maldonado MD at 12:46 EDT , Meaningful Use Info Meaningful Use Diagnoses (Choose all that apply): None applicable Discharge Plan Admission Admit Date/Time: 10/08/22 14:37 Primary Reason for Your Visit: cholangiocarcinoma. hemorrhagic shock. Attending Provider: Manohar Mendez Primary Care Provider: Hay,Ness [employer]OR OF [employer] Consulting Providers: Mode Hammond; Manohar Mendez; Jeremias Silvestre; Char Mendoza; Jeffery Triplett; Sung Carter; Oskar Grullon; Curtis Lou; Emily Tena [employer]; Sari Stokes Discharge Orders/Prescriptions Prescriptions: No Action omeprazole 40 mg capsule,delayed release(DR/EC) 40 mg PO DAILY glipizide 2.5 mg tablet extended release 24hr 2.5 mg PO DAILY metoprolol succinate 50 mg tablet extended release 24 hr 25 mg PO DAILY Patient Comments: TAKE 1 TABLET BY MOUTH EVERY DAY atorvastatin 40 mg tablet 40 mg PO DAILY aspirin [Adult Low Dose Aspirin] 81 mg tablet,delayed release (DR/EC) 81 mg PO DAILY Referrals / Follow Up: Sari Stokes MD [Med Staff - Active Staff] - 10/16/22 9:30 am Ness Guido NP, [employer]-C [Primary Care Provider] - Disposition Disposition (needs filled in before D/C Order can be placed): Acute Care Hospital Charges/Coding Visit Charges Inpatient E&M: 27537 Disch Hosp >30min
--- NOTE | 2022-10-15 14:00 | NURSING ---
[facility] [employer] crew at bedside, report given and this RN assisted transferring patient to their monitor and cot. 2 units of platelets just became available to administer as ordered. Both units sent with [facility] to infuse en route. Patient tolerated transfer well and further care assumed by med flight crew.
[2022-10-16 09:53] LABS: Pathologist Review Reviewed
[2022-10-16 09:58] LABS: Pathologist Review Reviewed
[2022-10-16 10:01] LABS: Pathologist Review Reviewed
== END 2022-10-15 14:37 | disposition short-term general hospital (02) | DRG 393 ==
LOC: ED 11:47 → MS3 14:47 → ICU 10-15 08:53
PROVIDERS: Anesthesiology; Family Medicine; Internal Medicine Gastroenterology; Physician Assistant; Admitting Provider Internal Medicine; Emergency Provider Emergency Medicine; PCP Registered Nurse
PROC: 0FD Hepatobiliary System and Pancreas, Extraction (ICD-10-PCS; CPT 43260; principal; 2022-10-09 14:40)
DX: K66.1 Hemoperitoneum (principal); K83.1 Obstruction of bile duct; R57.8 Other shock; N17.0 Acute kidney failure with tubular necrosis; G93.41 Metabolic encephalopathy; C22.1 Intrahepatic bile duct carcinoma; F32.0 Major depressive disorder, single episode, mild; K83.09 Other cholangitis; D62 Acute posthemorrhagic anemia; R17 Unspecified jaundice; R18.8 Other ascites; E87.20 Acidosis, unspecified; E11.9 Type 2 diabetes mellitus without complications; I71.9 Aortic aneurysm of unspecified site, without rupture; I10 Essential (primary) hypertension; K21.9 Gastro-esophageal reflux disease without esophagitis; M19.90 Unspecified osteoarthritis, unspecified site; I25.10 Atherosclerotic heart disease of native coronary artery without angina pectoris; E78.5 Hyperlipidemia, unspecified; F17.200 Nicotine dependence, unspecified, uncomplicated; K83.8 Other specified diseases of biliary tract; Z68.35 Body mass index [BMI] 35.0-35.9, adult; Z79.82 Long term (current) use of aspirin; Z66 Do not resuscitate; Z80.8 Family history of malignant neoplasm of other organs or systems; Z80.0 Family history of malignant neoplasm of digestive organs; Z51.5 Encounter for palliative care; R74.01 Elevation of levels of liver transaminase levels; G89.4 Chronic pain syndrome; E66.9 Obesity, unspecified; K86.89 Other specified diseases of pancreas; R91.1 Solitary pulmonary nodule
CPT/HCPCS: 36415; 36600; 71045; 71046; 71260; 74176; 74181; 74330; 76000; 80053; 81001; 82105; 82140; 82150; 82248; 82378; 82390; 82525; 82570; 82784; 82785; 82803; 82962; 83036; 83516; 83605; 83615; 83690; 83735; 84100; 84165; 84300; 85014; 85018; 85025; 85610; 85652; 85730; 86140; 86225; 86235; 86255; 86256; 86301; 86334; 86850; 86900; 86901; 86920; 86922; 86965; 87040; 87428; 87807; 88108; 88161; 88305; 88313; 93005; 94668; 94762; 97161; 97530; 97802; 99284; J7030; J7040; J7050; P9016; P9017; P9035; Q9967; A4216; C1726; C1751; J1940; J2405; J3490